=== PATIENT | female | born 1960 | race Caucasian/White ===

== ENCOUNTER 2017-09-21 11:36 | Outpatient (RCR) | payer BC ==
[2017-02-26 10:24] VITALS: BMI 41.3
[~2017-09-21 11:36] MED LIST: ALBU8.5H IH; AMOX-559 PO; ASPI-757 PO; BIOT1TAB12 PO; BUM2 PO; BUME1TAB19 PO; CEPH250C37 PO; CEPH500C24 PO; CEPH500T7 PO; CETI10CA8 PO; CHOL200074 PO; CLAR-13 PO; CLIN300C99 PO; CYCL10TA29 PO; DIAZ-308 PO; DICY-42 PO; DILT-145 PO; DULO30CA6 PO; DULO60CA7 PO; ESTR10TA4 VG; FLU45SYR25 IM ONLY; FLU60SYR30 IM ONLY; FLUC150T40 PO; FLUT16SP19 NS; FOLI-68 PO; HYDR-385 PO; HYDR-389 PO; HYDR-4305 PO; HYDR-4309 PO; IBUP800T37 PO; IPRA3AMP21 IH; LEVO-85 PO; METH20TA33 PO; METH20TA40 PO; METH25VI31 IJ; METH4TAB66 PO; MONT10TA PO; MUPI15CR10 TP; NABU-95 PO; OMEP-125 PO; OMEP-218 PO; ONDA4TAB PO; ONDA4TAB97 PO; OXYC-823 PO; OXYC-865 PO; OXYC-869 PO; PNEU0.5D3 IM; POTA-53 PO; RIVA20TA PO; ROPI0.5T24 PO; ROPI2TAB27 PO; ZOST19404 SQ; [UNRECOGNIZED DRUG - REMARK]; compression stocking; doxycycline
[2017-09-21 12:00] LABS: PLATELET COUNT, AUTOMATED 334 K/uL (150-450)
[2017-09-21 12:10] LABS: INR 1.02
[2017-09-21 12:52] LABS: LDL CHOLESTEROL 72 mg/dl
--- NOTE | 2017-09-23 08:16 | RADIOLOGY IMAGING REPORT ---
FACILITY: [facility] - [place] PATIENT NAME: SARAH AYALA : [id number] MR: [id number] V: [id number] EXAM DATE: [id number] ORDERING PHYSICIAN: OLMAN CARVER TECHNOLOGIST: Nara Guadarrama PROCEDURE:RIGHT DIGITAL DIAGNOSTIC MAMMOGRAM COMPARISON:None. INDICATIONS:CLIP PLACEMENT FINDINGS: Please see today's right breast ultrasound report. Dictated by: Jessica Rivero M.D. on 09/22/2017 at 16:42 Transcribed by: ANDRY on 09/22/2017 at 21:32 Approved by: Jessica Rivero M.D. on 09/23/2017 at 8:15 [facility]
--- NOTE | 2017-09-23 08:16 | RADIOLOGY IMAGING REPORT ---
FACILITY: [facility] - [place] PATIENT NAME: SARAH AYALA : [id number] MR: [id number] V: [id number] EXAM DATE: [id number] ORDERING PHYSICIAN: OLMAN CARVER TECHNOLOGIST: Kath Mora PROCEDURE: ULTRASOUND GUIDED RIGHT BREAST BIOPSY. COMPARISON: None. INDICATIONS: HYPOECHOIC NODULE IN THE RIGHT AXILLARY BREAST. FINDINGS: Informed consent was obtained. The patient's right axillary breast was prepped and draped in the usual sterile fashion. Local anesthesia was accomplished with 1% lidocaine. Utilizing sonographic guidance, three 16 gauge core biopsies were obtained through the hypoechoic nodule and the 10 o'clock axillary portion of the right breast. A biopsy clip was placed. The post-biopsy mammogram demonstrated the clip high in the axillary portion of the right breast on the right MLO view. This could not be seen on the right CC view. The clip did not correspond to the irregular nodule in the upper outer quadrant of the right breast seen on the recent mammogram, therefore, hook-wire localization under mammographic guidance with surgical excision is recommended for further evaluation. These findings were discussed with the patient at the time of the examination. DIAGNOSTIC CATEGORY 4--SUSPICIOUS FOR MALIGNANCY. Previous studies were reviewed. Procedure benefits and risks were discussed with the patient and consent RECOMMENDATIONS: SURGICAL BIOPSY COORDINATED WITH MAMMOGRAM HOOKWIRE LOCALIZATION: RIGHT BREAST. IMPRESSION: BI-RADS 4: Mammographically guided hook-wire localization of the irregular nodule upper outer portion of the right breast recommended with surgical excision as described above. Dictated by: Jessica Rivero M.D. on 09/22/2017 at 16:34 Transcribed by: ANDRY on 09/22/2017 at 21:11 Approved by: Jessica Rivero M.D. on 09/23/2017 at 8:15 [facility]
[2017-09-23] MEDS ORDERED: LEVO750T44 PO (11:00)
[2017-09-23] MEDS ORDERED: FLUC150T40 PO (11:00)
[2017-10-04] MEDS ORDERED: GOLYTE PO (15:51)
[2017-10-04] MEDS ORDERED: MELO-205 PO (16:06)
[2017-10-04] MEDS ORDERED: ASPI-757 PO (16:06)
== END 2017-09-22 18:00 | disposition home or self-care (01) ==
LOC: MAMO 11:36 → EDSTATUS 09-22 11:34 → MAMO 09-22 18:00
PROVIDERS: ATTEND Nurse Practitioner Family
DX: R92.8 Other abnormal and inconclusive findings on diagnostic imaging of breast (principal); Z79.899 Other long term (current) drug therapy
CPT/HCPCS: 19083; 36415; 77065; 82040; 82247; 82310; 82374; 82435; 82465; 82565; 82947; 83036; 83718; 84075; 84132; 84155; 84295; 84443; 84450; 84460; 84478; 84520; 85025; 85610; 85730; 88305; 88344

== ENCOUNTER 2017-11-03 00:20 | Day surgery (SDC) | payer BC ==
[2017-02-26 10:24] VITALS: Ht 168.9 cm; Wt 119.3 kg
[2017-11-02 10:59] LABS: PLATELET COUNT, AUTOMATED 347 K/uL (150-450)
--- NOTE | 2017-11-02 11:58 | EKG ---
FACILITY: [facility] - [place] PATIENT NAME: SARAH AYALA : [id number] MR: [id number] V: [id number] EXAM DATE: ORDERING PHYSICIAN: MAYO VELASQUEZ TECHNOLOGIST: Test Reason : Blood Pressure : / mmHG Vent. Rate : 069 BPM Atrial Rate : 069 BPM P-R Int : 136 ms QRS Dur : 074 ms QT Int : 422 ms P-R-T Axes : 054 057 060 degrees QTc Int : 452 ms Normal sinus rhythm Normal ECG When compared with ECG of 11-APR-2017 18:32, Sinus rhythm has replaced Atrial fibrillation Confirmed by MELL JUAREZ ([id number]) on 11/02/2017 12:33:34 PM Referred By: Confirmed By:MELL JUAREZ
[~2017-11-03] VITALS: Ht 168.9 cm; Wt 119.3 kg
[~2017-11-03 00:20] MED LIST changes: +GOLYTE PO; +LEVO750T44 PO; +MELO-205 PO
[2017-11-03] MEDS ORDERED: LIDOCAINE MPF 1% 5 ML VIAL ONE ×2 (08:51→11:57)
[2017-11-03 09:17] VITALS: BP 119/68
[2017-11-03] MEDS ORDERED: FAMOTIDINE 20 MG TAB PO ONE (09:20)
[2017-11-03] MEDS ORDERED: MIDAZOLAM 2 MG/2 ML VIAL IVP PRN (11:05)
[2017-11-03] MEDS ORDERED: LIDOCAINE/SOD BICARB 8.4% SYR ID ONE (11:05)
[2017-11-03] MEDS ORDERED: NS 0.9% IVPB ONE (11:05)
[2017-11-03] MEDS ORDERED: NORMOSOL R SOLN(*) 1000 ML BAG 1,000 ML IV PRN (11:05)
[2017-11-03] MEDS ORDERED: CEFAZOLIN IVPB ONE (11:05)
--- NOTE | 2017-11-03 11:50 | RADIOLOGY IMAGING REPORT ---
FACILITY: [facility] - [place] PATIENT NAME: Shania Padilla : 1960 MR: [id number] V: [id number] EXAM DATE: ORDERING PHYSICIAN: MAYO VELASQUEZ TECHNOLOGIST: Location: [facility] [place] Patient: Shania Padilla : 1960 Visit/Account:[id number] Date of Sevice: 11/03/2017 Ultrasound-guided wire localization, right breast nodule: HISTORY: Nodule in the right breast/axilla status post ultrasound-guided biopsy 09/22/2017. COMPARISON: 09/15/2017 and 09/22/2017 Procedure/findings: Risks and benefits of the procedure were discussed with the patient who signed co nsent. Formal timeout was performed. Patient was placed supine on the ultrasound table and skin over the [facility] axillary region was prepped and draped in a sterile fashion. Skin and soft tissues anesthetized with 1% lidocaine. Small nodule in the right axilla at 10:00 is visualized sonographically. Biopsy clip is seen just superficial to the nodule. Under direct ultrasound guidance, a 9 cm hookwire needl e was advanced through the superficial portion of the lesion adjacent to the biopsy clip. Wire was d eployed. Final sonographic image demonstrates the hookwire adjacent to the clip just superficial to the nodule. No apparent complications occurred during the procedure. Final mammographic image was not obtained. At the time of the biopsy, the mammographic clip could on ly be seen in a single plane due to the location high in the axilla so no attempt was made to image i s with mammogram. IMPRESSION: Ultrasound-guided wire localization of a nodule at the 10:00 position of the right breast near the axilla. Report Dictated By: Amy Fernandez MD at 11/03/2017 11:39 AM Report E-Signed By: Amy Fernandez MD at 11/03/2017 11:45 AM WSN:ASH
[2017-11-03] MEDS ORDERED: MIDAZOLAM 2 MG/2 ML VIAL ONE (11:56)
[2017-11-03] MEDS ORDERED: ONDANSETRON 4 MG/2 ML VIAL ONE (11:57)
[2017-11-03] MEDS ORDERED: DEXAMETHASONE SOD PHOS 10MG/ML ONE (11:57)
[2017-11-03] MEDS ORDERED: PROPOFOL EMUL(*) 10MG/ML 20 ML 20 ML ONE (11:57)
[2017-11-03] MEDS ORDERED: fentaNYL CITR 100 MCG/2 ML AMP ONE ×2 (11:57→15:03)
[2017-11-03] MEDS ORDERED: ROPIVACAINE 0.5% 20 ML VIAL ONE (12:37)
[2017-11-03] MEDS ORDERED: ROCURONIUM BROM 10 MG/ML 5 ML ONE (13:30)
--- NOTE | 2017-11-03 14:52 | Short(Outpt) Discharge Summary ---
Discharge Summary Reason for Hosp/Final Diag: (1) History of colon polyps Status: Chronic Hospital Course & Plan: Colonoscopy and right breast lump excision and right axillary lump excision completed without problems. (2) Fecal incontinence alternating with constipation Status: Chronic (3) Breast lesion on mammography Status: Chronic Departure Discharge to: Home, Self Care Discharge Instructions Home Meds Active Scripts Hydrocodone Bit/Acetaminophen (HYDROCODON-ACETAMINOPHEN 5-325) 1 Each Tablet, 1 TAB PO TID Y for pain, #90 TAB 0 Refills Prov:OLMAN CARVER APRN [employer] TENDER-C 10/27/17 Peg/Electrolytes (GOLYTELY SOLUTION) 4,000 Ml Soln, 1 GAL PO ONCE, #1 GAL 0 Refills Prov:RAYMOND VELASQUEZ MD 10/04/17 Duloxetine HCl (Duloxetine HCl) 60 Mg Capsule.dr, 1 CAP PO DAILY, #90 TAB 1 Refill Prov:OLMAN CARVER APRN [employer] TENDER-C 05/26/17 Ropinirole Hcl (REQUIP) 2 Mg Tablet, 1 TAB PO BID, #180 TAB 5 Refills Prov:OLMAN CARVER APRN [employer] TENDER-C 04/12/17 Reported Medications Aspirin (ASPIRIN) 325 Mg Tablet, 325 MG PO QDAY, TAB 10/04/17 Meloxicam (MELOXICAM) Unknown Strength Tablet, PO QDAY 10/04/17 Biotin (BIOTIN) 1 Mg Tablet, 1 MG PO DAILY 08/23/17 Folic Acid (FOLIC ACID) 1 Mg Tablet, 1 TAB PO QDAY, TAB 08/23/17 Ondansetron Hcl (ZOFRAN) 4 Mg Tablet, 1 TAB PO DIRECTED, TAB 08/23/17 Methotrexate Sodium (METHOTREXATE) 25 Mg/1 Ml Vial, 25 MG IJ QWEEK, VIAL 08/23/17 Omeprazole Magnesium (PRILOSEC OTC) 20 Mg Tablet.dr, 1 TAB PO QDAY Y for INDIGESTION, TAB 02/08/17 Cetirizine Hcl (ZYRTEC) 10 Mg Capsule, 10 MG PO QDAY Y for CONGESTION, CAPSULE 02/08/17 Dicyclomine Hcl (BENTYL) 10 Mg Capsule, 20 MG PO TID Y for IBS, CAPSULE 02/08/17 Cholecalciferol (Vitamin D3) (VITAMIN D-3) 2,000 Unit Capsule, 4000 UNIT PO QDAY , #100 CAPSULE 12/09/16 Follow up Referrals: General Surgery - 11/21/17 @ Surgery, General with Raymond Velasquez Md You have a follow up appointment scheduled with Dr. Velasquez on 11/21/17, at 3:30pm. Diet: Regular Activity: As Tolerated Special Instructions: You may remove the white surgical dressings on 11/05/17, then you can shower. After showering, leave the incisions open to air but leave the steristrips in place until they fall off on their own. Do not immerse the incisions for 2 weeks. Also, your colonoscopy was completed without problems and your prep was excellent. There were no polyps, cancers, inflammation in your colon; it was completely normal. RAYMOND VELASQUEZ MD Nov 03, 2017 14:52
--- NOTE | 2017-11-03 15:05 | Post Operative Progress Note ---
Post Operative Progress Note Date: Nov 03, 2017 Time: 14:53 Surgeon: Kobi Dictation number: [id number] Anesthesia: LMA by Dr. Schneider Pre-Op Diagnosis: H/O colon polyps Fecal incontinence Right breast lesions on mammogram and ultrasound Post-Op Diagnosis: JOSUÉ Findings: Normal colonoscopy, excellent prep Procedure(s): 1) colonoscopy 2) Right axillary wire-guided lesion excision 3) Right breast wire-guided lesion excision Specimen Removed:(May be N/A): 1) Right axillary lesion 2) Right breast lesion Complications: None Fluids: See anesthesia record Estimated Blood Loss: Minimal Date OP Note Dictated: Nov 03, 2017 Time OP Note Dictated: 14:55 MAYO VELASQUEZ MD Nov 03, 2017 15:04
--- NOTE | 2017-11-03 15:48 | RADIOLOGY IMAGING REPORT ---
[place] [facility] [place] SARAH AYALA : [id number] MR: [id number] V: [id number] EXAM DATE: [id number] ORDERING PHYSICIAN: MAYO VELASQUEZ TECHNOLOGIST: Alina Cunha PROCEDURE: NEEDLE LOCALIZATION RIGHT BREAST COMPARISON: 09/15/2017 INDICATIONS: Wire placement for surgery to remove lump right breast FINDINGS: Formal time out was performed. Risk & benefits of the procedure were discussed with the patient who signed consent. Lesion which was recommended for wire localization was not seen sonographically. This is seen in the upper outer quadrant of the right breast on mammogram. Initially, breast was compressed in an accentuated CC projection with the grid paddle. Lesion is seen within the aperture of the grid paddle. Skin was prepped & draped in a sterile fashion. Skin & soft tissue was anesthetized with 1% Lidocaine. A 9cm hookwire needle was advanced to the edge of the lesion, position based on the grid markings. Breast was then compressed in a medial to lateral projection, this demonstrates the tip of the needle within the lesion. Hookwire was deployed. Final mammographic images were obtained in the ML & accentuated CC projections, hookwire is seen posterior to the lesion. Of note, on the final images the lesion appears significantly smaller suggesting part of this may have been cystic with disruption of the cystic portion during wire localization. Wire was secured to the skin. No apparent complications occurred during the procedure. . CONCLUSION: Mammographic guided wire localization of a lesion in the upper outer quadrant of the right breast. Dictated by: Amy Fernandez M.D. on 11/03/2017 at 11:56 Transcribed by: RUPERT on 11/03/2017 at 15:21 Approved by: Amy Fernandez M.D. on 11/03/2017 at 15:48 [facility]
--- NOTE | 2017-11-03 15:51 | RADIOLOGY IMAGING REPORT ---
FACILITY: [facility] - [place] PATIENT NAME: SARAH AYALA : [id number] MR: [id number] V: [id number] EXAM DATE: [id number] ORDERING PHYSICIAN: MAYO VELASQUEZ TECHNOLOGIST: Alina Cunha PROCEDURE: BREAST SPECIMEN COMPARISON: 09/15/2017, 09/22/2017, 11/03/2017 INDICATIONS: L. breast lump excision x 2 FINDINGS: Specimen radiograph was obtained of the specimen which had been localized sonographically. The specimen contains the hookwire, biopsy clip which was placed at the time of prior biopsy as well as the small nodule. The 2nd specimen which is the lesion which was localized mammographically contains the hookwire although there is no solid mass identified. Of note, at the time the wire was placed at least part of the lesion was thought to be cystic due to significant decrease in size at the time of wire placement. Radiographs were discussed with Dr Velasquez at the time they were obtained. CONCLUSION: Specimen radiographs from 2 separate wire localizations as described above. Dictated by: Amy Fernandez M.D. on 11/03/2017 at 15:11 Transcribed by: RUPERT on 11/03/2017 at 15:26 Approved by: Amy Fernandez M.D. on 11/03/2017 at 15:51 [facility]
[2017-11-03 15:55] VITALS: BP 141/95
[2017-11-03 16:15] VITALS: BP 157/106
[2017-11-03] MEDS ORDERED: APAP/HYDROCODONE 325/5 TAB PO ONE (16:25)
[2017-11-03 16:30] VITALS: BP 147/80
[2017-11-03 16:45] VITALS: BP 119/83
[2017-11-03 16:47] VITALS: BP 127/85
--- NOTE | 2017-11-03 20:34 | OPERATIVE REPORT 1 ---
EVENT DATE: November 03, 2017 SURGEON: Raymond Peace MD ANESTHESIOLOGIST: Pierce Schneider MD ANESTHESIA: LMA. PREOPERATIVE DIAGNOSES 1. History of colon polyps. 2. Fecal incontinence. 3. Right breast lesion on mammogram. 4. Right axillary lesion on ultrasound. POSTOPERATIVE DIAGNOSES 1. History of colon polyps. 2. Fecal incontinence. 3. Right breast lesion on mammogram. 4. Right axillary lesion on ultrasound. PROCEDURES PERFORMED 1. Colonoscopy. 2. Wire-guided excision of right axillary lesion. 3. Wire-guided excision of right breast lesion. COMPLICATIONS None. CONDITION Stable. BLOOD LOSS Minimal. INDICATIONS This is a 57-year-old female who was referred to my office with two lesions seen on mammogram and ultrasound in her right breast and axilla. Biopsy of the axillary lesion only revealed skeletal muscle, but no breast elements. The breast lesion was felt not to be able to do percutaneous biopsy due to its proximity to the chest wall. She was referred to me for excision of these to determine their significance, and she was also due for a colonoscopy due to her history of polyps, and she was also complaining of alternating constipation and diarrhea. When she has diarrhea, she has a hard time holding her stool. DESCRIPTION OF PROCEDURE The patient was brought to the operating room and placed supine on the operating table. LMA anesthesia was administered, and she was placed in the frogleg position. The colonoscope was set up and tested to ensure it was completely functional. It was lubricated and inserted it through her anus to the rectum. I did perform a digital rectal exam just prior to inserting the colonoscope, and this was unremarkable. Once the colonoscope was in the rectum , I advanced it without any problems all the way to the cecum and then slowly withdrew the scope to look at all mucosal surfaces for any abnormalities. When the tip was in the rectum, I retroflexed the scope to look at the distal rectum and upper anal canal, and these were unremarkable. I then straightened the scope out and desufflated the distal sigmoid and rectum and withdrew the scope from her body. The prep was excellent, and the colonoscopy was normal. No polyps, cancers, inflammation, or other abnormalities. She was then placed in a full supine position, and her right breast and axilla were prepped and draped in a sterile fashion. She had had wires placed preoperatively in both lesions. I started with the right axillary lesion and made a transverse incision in the right axilla just posterior to the pectoralis muscle and dissected down through the subcutaneous fat into the axillary contents. I did go quite deep posterior to the pectoralis muscle, but after I got around the wire, I removed the specimen. It was placed on a grid and sent to Radiology. I then began working on the right breast lesion while I was awaiting the results of the axillary lesion, but while I was working on the right breast lesion, the radiologist called and notified me that the nodule seen on ultrasound was in the specimen, and it looked like a good resection. After anesthetizing the skin on the right breast with 0.5% ropivacaine plain, I made a transverse incision and dissected through the dermis and subcutaneous fat. I pulled the wire into the wound and then dissected along the wire down to the tip of the wire. I dissected completely around it and then removed it. I placed it on a grid and sent it to Radiology. She called back and notified me that she did not clearly see the lesion. However, preoperatively, she noted that it seemed to be at least partially cystic because it decompressed when she was placing the wire, and I noted the same thing with serous fluid down in this area. I did remove some more tissue around where the wire had been and sent this to Pathology as a separate specimen. I then closed the subcutaneous pockets of both wounds with a running 3-0 Vicryl sutures, and the skin was closed with running Vicryl deep dermal sutures and 4-0 Monocryl running subcuticular sutures. The skin was cleaned and dried, and Steri-Strips were applied, followed by sterile surgical dressings. The patient was then awakened and LMA removed. She was transported to the recovery room in stable condition having tolerated the procedures without any apparent problems. PATRICIO
== END 2017-11-03 15:55 | disposition home or self-care (01) ==
LOC: OR 00:20
PROVIDERS: ATTEND Surgery
DX: R22.2 Localized swelling, mass and lump, trunk (principal); N64.9 Disorder of breast, unspecified; R15.9 Full incontinence of feces; Z86.010 Personal history of colon polyps; N60.31 Fibrosclerosis of right breast
CPT/HCPCS: 00811; 19125; 19283; 19285; 21556; 36415; 45378; 85025; 88305; 88344; 93005; J0690; J1100; J2001; J2250; J2405; J2704; J2795; J3010; J7050

== ENCOUNTER 2017-11-05 18:28 | Emergency (ER) | payer BC ==
[2017-02-26 10:24] VITALS: Ht 168.9 cm; Wt 119.3 kg
[~2017-11-05] VITALS: Ht 168.9 cm; Wt 119.3 kg
--- NOTE | 2017-11-05 18:40 | ER Report ---
History and Physical Time Seen By : 18:39 HPI/ROS CHIEF COMPLAINT: nausea and post-op pain in the axillae HISTORY OF PRESENT ILLNESS: This is a 57 year old female. She had breast biopsies for 2 lesions in the right breast and axillae. This was 2 days ago. Having bruising and pain. Also with nausea. The steri-strips came off after she showered tonight. Had a little bright red blood on some of the steri-strips. No other drainage of the wounds. No fevers or chills. Pain worsens with movement of the right arm, but as expected. Does not see Dr. Velasquez until next month. Pathology pending. Also had colonoscopy, but no pain or problems with bowels or abdomen. Allergies: Coded Allergies: Sulfa (Sulfonamide Antibiotics) (Unverified Allergy, Unknown, RASH, ) oxycodone (Verified Adverse Reaction, Intermediate, NAUSEA/VOMITING, ) propofol (Verified Adverse Reaction, Intermediate, PARANOIA, AGITATED, 07/13) Uncoded Allergies: HAYFEVER (Allergy, Intermediate, SINUS CONGESTION, 02/08/17) Home Meds Active Scripts Ondansetron (ZOFRAN ODT) 4 Mg Tab.rapdis, 4 MG PO Q6H Y for NAUSEA/VOMITING, # 20 TAB.CATALINO 0 Refills Prov:SUSAN ADAMS MD 11/05/17 Hydrocodone Bit/Acetaminophen (HYDROCODON-ACETAMINOPHEN 5-325) 1 Each Tablet, 1 TAB PO TID Y for pain, #90 TAB 0 Refills Prov:OLMAN CARVER APRN-C 10/27/17 Duloxetine HCl (Duloxetine HCl) 60 Mg Capsule., 1 CAP PO DAILY, #90 TAB 1 Refill Prov:OLMAN CARVER APRN-C 05/26/17 Ropinirole Hcl (REQUIP) 2 Mg Tablet, 1 TAB PO BID, #180 TAB 5 Refills Prov:OLMAN CARVER APRN-Reg 04/12/17 Reported Medications Aspirin (ASPIRIN) 325 Mg Tablet, 325 MG PO QDAY, TAB 10/04/17 Meloxicam (MELOXICAM) Unknown Strength Tablet, PO QDAY 10/04/17 Biotin (BIOTIN) 1 Mg Tablet, 1 MG PO DAILY 08/23/17 Folic Acid (FOLIC ACID) 1 Mg Tablet, 1 TAB PO QDAY, TAB 08/23/17 Ondansetron Hcl (ZOFRAN) 4 Mg Tablet, 1 TAB PO DIRECTED, TAB 08/23/17 Methotrexate Sodium (METHOTREXATE) 25 Mg/1 Ml Vial, 25 MG IJ QWEEK, VIAL 08/23/17 Omeprazole Magnesium (PRILOSEC OTC) 20 Mg Tablet.dr, 1 TAB PO QDAY Y for INDIGESTION, TAB 02/08/17 Cetirizine Hcl (ZYRTEC) 10 Mg Capsule, 10 MG PO QDAY Y for CONGESTION, CAPSULE 02/08/17 Dicyclomine Hcl (BENTYL) 10 Mg Capsule, 20 MG PO TID Y for IBS, CAPSULE 02/08/17 Cholecalciferol (Vitamin D3) (VITAMIN D-3) 2,000 Unit Capsule, 4000 UNIT PO QDAY , #100 CAPSULE 12/09/16 Discontinued Scripts Peg/Electrolytes (GOLYTELY SOLUTION) 4,000 Ml Soln, 1 GAL PO ONCE, #1 GAL 0 Refills Prov:MAYO VELASQUEZ MD 10/04/17 Reviewed Nurses Notes: Yes Hx Smoking: No Smoking Status: Never Smoker Exposure to Second Hand Smoke?: No (WAS EXPOSED IN THE PAST. NONE FOR 20 YEARS) Hx Substance Use Disorder: No Hx Alcohol Use: Yes Constitutional Vital Sign - Last 24 Hours 11/05/17 11/05/17 11/05/17 11/05/17 18:36 18:38 18:39 18:43 Temp 98.6 Pulse 75 75 73 Resp 18 B/P (MAP) 146/88 (107) 146/88 Pulse Ox 94 96 95 O2 Delivery Room Air 11/05/17 11/05/17 11/05/17 11/05/17 18:48 18:53 18:58 19:00 Pulse 74 65 67 B/P (MAP) 143/70 (94) Pulse Ox 94 98 95 11/05/17 11/05/17 11/05/17 11/05/17 19:03 19:08 19:13 19:18 Pulse 68 72 ??? 71 Pulse Ox 94 94 92 11/05/17 11/05/17 11/05/17 11/05/17 19:23 19:28 19:33 19:35 Pulse 70 76 76 B/P (MAP) 155/84 (107) Pulse Ox 91 92 92 11/05/17 11/05/17 11/05/17 11/05/17 19:38 19:43 19:53 19:58 Pulse 73 74 75 74 Pulse Ox 93 90 92 90 11/05/17 11/05/17 11/05/17 11/05/17 20:00 20:03 20:08 20:17 Pulse 73 71 B/P (MAP) 145/85 (105) 160/94 (116) Pulse Ox 97 99 11/05/17 20:22 Pulse 85 Resp 16 B/P (MAP) 164/88 (113) Pulse Ox 92 O2 Delivery Room Air Physical Exam General: Alert, no acute distress. Skin: Surgical incisions closed and no drainage present. Tender as expected with palpation and movement of the right arm. No mass or fluctuance noted. Bruising tracking down the breast dependently, but no sign of hematoma. No redness or warmth. Musculoskeletal: Movement intact, but with pain. Medical Decision Making Data Points Result Diagram: 11/05/171914 Laboratory Hematology Test 11/05/17 19:15 Red Blood Count 3.93 M/uL (4.17-5.56) Mean Corpuscular Volume 88.5 fL (80.0-96.0) Mean Corpuscular Hemoglobin 29.9 pg (26.0-33.0) Mean Corpuscular Hemoglobin Concent 33.8 g/dL (32.0-36.0) Red Cell Distribution Width 14.2 % (11.5-14.5) Mean Platelet Volume 8.2 fL (7.2-11.1) Neutrophils (%) (Auto) 62.5 % (39.4-72.5) Lymphocytes (%) (Auto) 24.8 % (17.6-49.6) Monocytes (%) (Auto) 7.5 % (4.1-12.4) Eosinophils (%) (Auto) 4.4 % (0.4-6.7) Basophils (%) (Auto) 0.8 % (0.3-1.4) Nucleated RBC Relative Count (auto) 0.0 /100WBC Neutrophils # (Auto) 4.6 K/uL (2.0-7.4) Lymphocytes # (Auto) 1.8 K/uL (1.3-3.6) Monocytes # (Auto) 0.5 K/uL (0.3-1.0) Eosinophils # (Auto) 0.3 K/uL (0.0-0.5) Basophils # (Auto) 0.1 K/uL (0.0-0.1) Nucleated RBC Absolute Count (auto) 0.00 K/uL Prothrombin Time 13.2 seconds (12.0-14.4) Prothromb Time International Ratio 1.00 Activated Partial Thromboplast Time 29 seconds (23-35) Chemistry Test 11/05/17 19:15 White Blood Count 7.4 k/uL (4.5-11.0) Red Blood Count 3.93 M/uL (4.17-5.56) Hemoglobin 11.7 g/dL (12.0-16.0) Hematocrit 34.8 % (34.0-47.0) Mean Corpuscular Volume 88.5 fL (80.0-96.0) Mean Corpuscular Hemoglobin 29.9 pg (26.0-33.0) Mean Corpuscular Hemoglobin Concent 33.8 g/dL (32.0-36.0) Red Cell Distribution Width 14.2 % (11.5-14.5) Platelet Count 280 K/uL (150-450) Mean Platelet Volume 8.2 fL (7.2-11.1) Neutrophils (%) (Auto) 62.5 % (39.4-72.5) Lymphocytes (%) (Auto) 24.8 % (17.6-49.6) Monocytes (%) (Auto) 7.5 % (4.1-12.4) Eosinophils (%) (Auto) 4.4 % (0.4-6.7) Basophils (%) (Auto) 0.8 % (0.3-1.4) Nucleated RBC Relative Count (auto) 0.0 /100WBC Neutrophils # (Auto) 4.6 K/uL (2.0-7.4) Lymphocytes # (Auto) 1.8 K/uL (1.3-3.6) Monocytes # (Auto) 0.5 K/uL (0.3-1.0) Eosinophils # (Auto) 0.3 K/uL (0.0-0.5) Basophils # (Auto) 0.1 K/uL (0.0-0.1) Nucleated RBC Absolute Count (auto) 0.00 K/uL Prothrombin Time 13.2 seconds (12.0-14.4) Prothromb Time International Ratio 1.00 Activated Partial Thromboplast Time 29 seconds (23-35) Coagulation Test 11/05/17 19:15 Prothrombin Time 13.2 seconds Prothromb Time International Ratio 1.00 Activated Partial Thromboplast Time 29 seconds ED Course/Re-evaluation ED Course Bedside ultrasound was done and is negative for any fluid collections on brief bedside look by myself. PT, PTT, and CBC obtained, no abnormalities noted. Patient will follow-up with Dr. Velasquez this week for re-evaluation. Did provide a prescription for Zofran as needed. Decision to Disposition Date: Nov 05, 2017 Decision to Disposition Time: 20:10 Depart Departure Latest Vital Signs Vital Signs Date Time Temp Pulse Resp B/P (MAP) Pulse Ox O2 Delivery O2 Flow Rate FiO2 11/05/17 20:22 85 16 164/88 (113) 92 Room Air 11/05/17 18:39 98.6 Impression: Primary Impression: Postoperative ecchymosis Additional Impression: Nausea Condition: Improved Disposition: HOME OR SELF-CARE Referrals: OLMAN CARVER APRN [facility]TER-[facility] (PCP) New Scripts Ondansetron (ZOFRAN ODT) 4 Mg Tab.rapdis 4 MG PO Q6H Y for NAUSEA/VOMITING, #20 TAB.CATALINO 0 Refills Prov: SUSAN ADAMS MD 11/05/17 Patient Instructions: Acute Nausea and Vomiting (ED), Ecchymosis (ED) Additional Instructions: Follow-up with Dr. Velasquez this week for re-evaluation. No changes in medications. Prescription for Zofran provided. Problem Qualifiers SUSAN ADAMS MD Nov 05, 2017 18:40
[2017-11-05] MEDS ORDERED: ONDANSETRON 4 MG ODT TABDP SL ONE (19:05)
[2017-11-05 19:23] LABS: PLATELET COUNT, AUTOMATED 280 K/uL (150-450)
[2017-11-05] MEDS ORDERED: ONDA4TAB PO (20:12)
[2017-11-05 20:22] VITALS: BP 164/88
== END 2017-11-05 20:22 | disposition home or self-care (01) ==
LOC: ER 18:38
DX: L76.22 Postprocedural hemorrhage of skin and subcutaneous tissue following other procedure (principal); R11.0 Nausea
CPT/HCPCS: 36415; 85025; 85610; 85730; 99283; S0119

== ENCOUNTER 2018-01-09 17:50 | Emergency (ER) | payer BC ==
[2017-02-26 10:24] VITALS: Wt 119.3 kg
[~2018-01-09 17:50] MED LIST changes: +FLUC100T35 PO
[2018-01-09] MEDS ORDERED: METH2.5T43 PO (17:59)
--- NOTE | 2018-01-09 17:59 | ER Report ---
History and Physical Time Seen By MD: 17:58 Hx. of Stated Complaint: PT DROPPED CEDAR PLANKS ON R FOOT, PAIN AND BRUISING OVER TOES HPI/ROS 57-year-old female states that she was moving 80 pound boards around and they fell and dropped on her 4th and 5th toe on her right foot and had pain and swelling since this happened about an hour prior to arrival Allergies: Coded Allergies: Sulfa (Sulfonamide Antibiotics) (Unverified Allergy, Unknown, RASH, ) oxycodone (Verified Adverse Reaction, Intermediate, NAUSEA/VOMITING, ) propofol (Verified Adverse Reaction, Intermediate, PARANOIA, AGITATED, 07/13) Uncoded Allergies: HAYFEVER (Allergy, Intermediate, SINUS CONGESTION, 02/08/17) Home Meds Active Scripts Hydrocodone Bit/Acetaminophen (HYDROCODON-ACETAMINOPHEN 5-325) 1 Each Tablet, 1 TAB PO TID Y for pain, #90 TAB 0 Refills Prov:OLMAN CARVER APRN-C 01/04/18 Duloxetine HCl (Duloxetine HCl) 60 Mg Capsule.dr, 1 CAP PO DAILY, #90 TAB 0 Refills Prov:OLMAN CARVER APRN-C 11/24/17 Ropinirole Hcl (REQUIP) 2 Mg Tablet, 1 TAB PO BID, #180 TAB 5 Refills Prov:OLMAN CARVER APRNP-C 04/12/17 Reported Medications Methotrexate Sodium (METHOTREXATE) 2.5 Mg Tablet, 2.5 MG PO Q12H 01/09/18 Meloxicam (MELOXICAM) Unknown Strength Tablet, PO QDAY 10/04/17 Biotin (BIOTIN) 1 Mg Tablet, 1 MG PO DAILY 08/23/17 Folic Acid (FOLIC ACID) 1 Mg Tablet, 1 TAB PO QDAY, TAB 08/23/17 Cetirizine Hcl (ZYRTEC) 10 Mg Capsule, 10 MG PO QDAY Y for CONGESTION, CAPSULE 02/08/17 Cholecalciferol (Vitamin D3) (VITAMIN D-3) 2,000 Unit Capsule, 4000 UNIT PO QDAY , #100 CAPSULE 12/09/16 Discontinued Reported Medications Aspirin (ASPIRIN) 325 Mg Tablet, 325 MG PO QDAY, TAB 10/04/17 Discontinued Scripts Fluconazole (DIFLUCAN) 100 Mg Tablet, 100 MG PO QDAY for 1 Day, #1 TAB Prov:GRAYSON HOLGUIN JR, MD 12/21/17 Amoxicillin/Pot Clav 875-125 Mg Tab (AUGMENTIN 875-125 TABLET) 1 Each Tablet, 1 TAB PO Q12H for 14 Days, #28 TAB Prov:GRAYSON HOLGUIN JR, MD 12/21/17 Past Medical/Surgical History Rheumatoid arthritis is on scheduled [place] for this Hx Smoking: No Smoking Status: Never Smoker Exposure to Second Hand Smoke?: No (WAS EXPOSED IN THE PAST. NONE FOR 20 YEARS) Hx Substance Use Disorder: No Hx Alcohol Use: Yes Family History of: Other Constitutional Vital Sign - Last 24 Hours 01/09/18 01/09/18 01/09/18 01/09/18 17:54 18:00 18:05 18:20 Temp 98.3 Pulse 75 77 81 Resp 18 B/P (MAP) 126/105 116/88 (97) Pulse Ox 95 94 93 O2 Delivery Room Air 01/09/18 01/09/18 18:30 18:35 Pulse 80 B/P (MAP) 135/83 (100) Pulse Ox 94 Physical Exam General Appearance: [The patient is alert, has no immediate need for airway protection and no current signs of toxicity.] [ ] Respiratory: Chest is non tender, lungs are clear to auscultation. Cardiac: regular rate and rhythm [ ] Gastrointestinal: Abdomen is soft and non tender, no masses, bowel sounds normal. Musculoskeletal: Neck: Neck is supple and non tender. HEENT swelling 4th 5th toe of right foot Skin: No rashes or lesions. [ ] DIFFERENTIAL DIAGNOSIS: After history and physical exam differential diagnosis was considered for [contusion versus fracture right foot ] Medical Decision Making EKG/Imaging Imaging FACILITY: [facility] [place] PATIENT NAME: Shania Padilla : 1960 MR: [id number] V: [id number] EXAM DATE: [id number] ORDERING PHYSICIAN: KENA GARCIA TECHNOLOGIST: Location: [facility] [place] Patient: Shania Padilla : 1960 Visit/Account:[id number] Date of Sevice: 01/09/2018 INDICATION: board dropped on toes. A board dropped on the toes. DATE: 01/09/2018 6:20 PM. TECHNIQUE: FOOT 3 VIEW RIGHT COMPARISON: None FINDINGS: Normal alignment. No fracture or dislocation. Small plantar calcaneal heel spur. IMPRESSION: Normal alignment without fracture or dislocation. Report Dictated By: Kaveh Mendez MD at 01/09/2018 6:20 PM Report E-Signed By: Kaveh Mendez MD at 01/09/2018 6:30 PM WSN:[id number] Course/Re-evaluation ED Course X-ray of right foot is negative did talk to patient she has hard sole shoes to wear at home she will elevate foot use ice up to 4 times a day and take her scheduled [place] for pain Re-evaluation Refuse pain medication the ER is ambulatory in the ER with instructions does have a contusion to her right but Decision to Disposition Date: Jan 09, 2018 Decision to Disposition Time: 18:02 Depart Departure Latest Vital Signs Vital Signs Date Time Temp Pulse Resp B/P (MAP) Pulse Ox O2 Delivery O2 Flow Rate FiO2 01/09/18 18:35 80 94 01/09/18 18:30 135/83 (100) 01/09/18 17:54 98.3 18 Room Air Impression: Primary Impression: Contusion of foot Condition: Improved Disposition: HOME OR SELF-CARE Referrals: OLMAN CARVER APRN [employer]-C (PCP) 5 Days Patient Instructions: Contusion in Adults (ED) Additional Instructions: Wear hard soled shoe Tylenol for pain elevate foot return for problems or concerns KENA GARCIA APRN-C Jan 09, 2018 17:59
[2018-01-09 18:30] VITALS: BP 135/83
--- NOTE | 2018-01-09 18:34 | RADIOLOGY IMAGING REPORT ---
FACILITY: [facility] PATIENT NAME: Shania Padilla : 1960 MR: [id number] V: [id number] EXAM DATE: ORDERING PHYSICIAN: KENA GARCIA TECHNOLOGIST: [facility] Patient: Shania Padilla : 1960 Visit/Account:[id number] Date of Sevice: 01/09/2018 INDICATION: board dropped on toes. A board dropped on the toes. DATE: 01/09/2018 6:20 PM. TECHNIQUE: FOOT 3 VIEW RIGHT COMPARISON: None FINDINGS: Normal alignment. No fracture or dislocation. Small plantar calcaneal heel spur. IMPRESSION: Normal alignment without fracture or dislocation. Report Dictated By: Kaveh Mendez MD at 01/09/2018 6:20 PM Report E-Signed By: Kaveh Mendez MD at 01/09/2018 6:30 PM WSN:[id number]
== END 2018-01-09 18:58 | disposition home or self-care (01) ==
LOC: ER 18:15
DX: S90.31XA Contusion of right foot, initial encounter (principal); W20.8XXA Other cause of strike by thrown, projected or falling object, initial encounter
CPT/HCPCS: 99281

== ENCOUNTER → 2018-01-12 | Outpatient (CLI) | payer BC ==
[2017-02-26 10:24] VITALS: BMI 41.3
[~2018-01-12] MED LIST changes: +METH2.5T43 PO
--- NOTE | 2018-01-12 13:07 | RADIOLOGY IMAGING REPORT ---
FACILITY: [facility] PATIENT NAME: Shania Padilla : 1960 MR: [id number] V: [id number] EXAM DATE: [id number] ORDERING PHYSICIAN: GRAYSON HOLGUIN TECHNOLOGIST: Location: [facility] Patient: Shania Padilla : 1960 Visit/Account:[id number] Date of Sevice: 01/12/2018 EXAMINATION: CT of the Paranasal Sinuses HISTORY: Chronic sinus symptoms, septal deviation TECHNIQUE: CT was performed through the paranasal sinuses without intravenous contrast administratio n. Coronal and sagittal reformatted images were generated. One of the following dose optimization techniques was utilized in the performance of this exam: autom ated exposure control; adjustment of the mA and/or kV according to patient size; or use of iterative reconstruction technique. Specific details can be referenced in the facility's radiology CT exam ope rational policy. COMPARISON: December 28, 2015 FINDINGS: Clear mastoid air cells, clear middle ear cavities. Patent infundibula. Inward bowing of the bilatera l medial maxillary sinus [place] as before. Minimal secretions in the left nasal cavity medial to the l eft medial maxillary sinus wall. Clear paranasal sinuses. No nasal cavity polyp. Unchanged rightward cartilaginous nasal septum deviation measuring approximately 4.4 mm. Unchanged le ftward mid nasal septum deviation measuring approximately 4 mm. No nasal cavity polyp. Normal temporomandibular joints. Diminutive left middle turbinate as before. Unchanged small left nasal septum spur. Cataract postsurgical change noted. The visible intracranial structures are normal. IMPRESSION: 1. Clear paranasal sinuses. 2. Unchanged nasal septum deviation, see comments above. 3. Unchanged chronic findings as described above. Report Dictated By: Michel Singh MD at 01/12/2018 12:38 PM Report E-Signed By: Michel Singh MD at 01/12/2018 1:02 PM WSN:[id number]
== END ==
LOC: CT 01:20
PROVIDERS: ATTEND Otolaryngology
DX: J32.9 Chronic sinusitis, unspecified (principal); J34.2 Deviated nasal septum
CPT/HCPCS: 70486

== ENCOUNTER → 2018-01-18 | Outpatient (CLI) | payer BC ==
[2017-02-26 10:24] VITALS: BMI 41.3
[2018-01-18 14:13] LABS: PLATELET COUNT, AUTOMATED 326 K/uL (150-450)
== END ==
LOC: LAB 13:57
PROVIDERS: ATTEND Internal Medicine Rheumatology
DX: M05.79 Rheumatoid arthritis with rheumatoid factor of multiple sites without organ or systems involvement (principal); Z79.899 Other long term (current) drug therapy
CPT/HCPCS: 36415; 82565; 84450; 85025; 85651

== ENCOUNTER 2018-02-10 16:06 | Emergency (ER) | payer BC ==
[2017-02-26 10:24] VITALS: Wt 117.5 kg
[~2018-02-10 16:06] MED LIST changes: +LEUC5TAB PO
--- NOTE | 2018-02-10 16:29 | ER Report ---
History and Physical Time Seen By MD: 16:28 Hx. of Stated Complaint: PT REPORTS SOB AND FEELING SICK AND FATIGUED HPI/ROS CHIEF COMPLAINT: Left leg pain, swelling, not feeling well HISTORY OF PRESENT ILLNESS: 57-year-old female patient presents to emergency room with complaint of left leg pain, swelling and not feeling well. Patient states that she's been having knee pain for the last couple of days. She states that she is having hard time getting up and move around at all without leg. 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 She has also noticed some swelling in the back of her leg. She denies having any fevers or chills. She states she has been having some shortness of breath. She states that she has not taken any medication for this. She denies having any nausea, vomiting or diarrhea. Patient also denies having any chest pain. REVIEW OF SYSTEMS: Respiratory: As noted above Cardiovascular: No chest pain, no palpitations. Gastrointestinal: No vomiting, no abdominal pain. Musculoskeletal: As noted above Allergies: Coded Allergies: Sulfa (Sulfonamide Antibiotics) (Unverified Allergy, Unknown, RASH, ) oxycodone (Verified Adverse Reaction, Intermediate, NAUSEA/VOMITING, ) propofol (Verified Adverse Reaction, Intermediate, PARANOIA, AGITATED, ) Uncoded Allergies: HAYFEVER (Allergy, Intermediate, SINUS CONGESTION, 02/08/17) Home Meds Active Scripts Hydrocodone Bit/Acetaminophen (HYDROCODON-ACETAMINOPHEN 5-325) 1 Each Tablet, 1 TAB PO TID Y for pain, #90 TAB 0 Refills Prov:OLMAN CARVER APRN-C 01/04/18 Duloxetine HCl (Duloxetine HCl) 60 Mg Capsule.dr, 1 CAP PO DAILY, #90 TAB 0 Refills Prov:OLMAN CARVER APRNP-C 11/24/17 Ropinirole Hcl (REQUIP) 2 Mg Tablet, 1 TAB PO BID, #180 TAB 5 Refills Prov:OLMAN CARVER APRN [employer]-C 04/12/17 Reported Medications Ondansetron (ZOFRAN ODT) 4 Mg Tab.rapdis, 4 MG PO PRN, TAB.CATALINO 02/07/18 Ondansetron Hcl (ZOFRAN) 4 Mg Tablet, 4 MG PO QWEEK, TAB 02/07/18 Leucovorin Calcium (LEUCOVORIN CALCIUM) 5 Mg Tablet, 5 MG PO QWK 02/07/18 Methotrexate Sodium (METHOTREXATE) 2.5 Mg Tablet, 5 TAB PO WEEKLY BID 01/09/18 Meloxicam (MELOXICAM) Unknown Strength Tablet, 7.5 PO QAM 10/04/17 Biotin (BIOTIN) 1 Mg Tablet, 1 MG PO DAILY 08/23/17 Folic Acid (FOLIC ACID) 1 Mg Tablet, 1 TAB PO QDAY, TAB 08/23/17 Cetirizine Hcl (ZYRTEC) 10 Mg Capsule, 10 MG PO QDAY Y for CONGESTION, CAPSULE 02/08/17 Cholecalciferol (Vitamin D3) (VITAMIN D-3) 2,000 Unit Capsule, 4000 UNIT PO QDAY , #100 CAPSULE 12/09/16 Past Medical/Surgical History Patient has a past medical history of restless leg syndrome, migraines, A. fib, bronchitis, wheezing, pneumonia, IBS, reflux, fibromyalgia, rheumatoid arthritis , osteoarthritis, left ankle fracture, wrist fracture, back pain, alcohol use. Patient has surgical history of ablation, wrist surgery, knee surgery, back surgery, tonsillectomy, eye surgery, breast reduction surgery, lumpectomy. Reviewed Nurses Notes: Yes Hx Smoking: No Smoking Status: Never Smoker Exposure to Second Hand Smoke?: No (WAS EXPOSED IN THE PAST. NONE FOR 20 YEARS) Hx Substance Use Disorder: No Hx Alcohol Use: Yes Constitutional Vital Sign - Last 24 Hours 02/10/18 02/10/18 02/10/18 02/10/18 16:14 16:17 16:21 16:25 Temp 98.6 Pulse 75 78 Resp 18 B/P (MAP) 135/75 (95) 135/75 125/65 (85) Pulse Ox 93 93 O2 Delivery Room Air 02/10/18 02/10/18 02/10/18 02/10/18 16:30 16:36 16:45 16:51 Pulse 71 76 Resp 44 46 B/P (MAP) 123/78 (93) 117/66 (83) Pulse Ox 94 88 02/10/18 02/10/18 02/10/18 02/10/18 17:00 17:06 17:15 17:21 Pulse ??? 68 Resp 48 B/P (MAP) 123/65 (84) 127/65 (85) Pulse Ox 96 02/10/18 02/10/18 02/10/18 02/10/18 17:30 17:36 17:45 17:51 Pulse 60 56 Resp 17 B/P (MAP) 136/75 (95) 128/75 (92) Pulse Ox 98 96 02/10/18 18:00 B/P (MAP) 148/85 (106) Physical Exam General Appearance: The patient is alert, has no immediate need for airway protection and no current signs of toxicity. Respiratory: Chest is non tender, lungs are clear to auscultation. Cardiac: regular rate and rhythm Gastrointestinal: Abdomen is soft and non tender, no masses, bowel sounds normal. Musculoskeletal: Neck: Neck is supple and non tender. Extremities have full range of motion and are non tender. Patient does have some tenderness to the medial aspect of the left knee. Skin: No rashes or lesions. DIFFERENTIAL DIAGNOSIS: After history and physical exam differential diagnosis was considered for knee sprain, knee fracture, knee contusion, DVT, pneumonia, [place]. Medical Decision Making Data Points Result Diagram: 02/10/18 1658 02/10/18 1658 Laboratory Hematology Test 02/10/18 16:58 Red Blood Count 4.57 M/uL (4.17-5.56) Mean Corpuscular Volume 85.6 fL (80.0-96.0) Mean Corpuscular Hemoglobin 29.0 pg (26.0-33.0) Mean Corpuscular Hemoglobin Concent 33.9 g/dL (32.0-36.0) Red Cell Distribution Width 15.0 % (11.5-14.5) Mean Platelet Volume 8.4 fL (7.2-11.1) Neutrophils (%) (Auto) 62.5 % (39.4-72.5) Lymphocytes (%) (Auto) 24.7 % (17.6-49.6) Monocytes (%) (Auto) 9.0 % (4.1-12.4) Eosinophils (%) (Auto) 2.7 % (0.4-6.7) Basophils (%) (Auto) 1.1 % (0.3-1.4) Nucleated RBC Relative Count (auto) 0.1 /100WBC Neutrophils # (Auto) 4.6 K/uL (2.0-7.4) Lymphocytes # (Auto) 1.8 K/uL (1.3-3.6) Monocytes # (Auto) 0.7 K/uL (0.3-1.0) Eosinophils # (Auto) 0.2 K/uL (0.0-0.5) Basophils # (Auto) 0.1 K/uL (0.0-0.1) Nucleated RBC Absolute Count (auto) 0.01 K/uL Sodium Level 141 mmol/L (137-145) Potassium Level 3.9 mmol/L (3.5-5.0) Chloride Level 104 mmol/L (98-107) Carbon Dioxide Level 26 mmol/L (22-31) Blood Urea Nitrogen 21 mg/dl (7-18) Creatinine 1.00 mg/dl (0.52-1.04) Glomerular Filtration Rate Calc 57.4 Random Glucose 91 mg/dl (75-110) Calcium Level 9.2 mg/dl (8.4-10.2) Total Bilirubin 0.3 mg/dl (0.2-1.3) Aspartate Amino Transf (AST/SGOT) 23 U/L (0-35) Alanine Aminotransferase (ALT/SGPT) 31 U/L (0-56) Alkaline Phosphatase 103 U/L (0-126) Troponin I < 0.012 ng/ml B-Type Natriuretic Peptide 21 pg/ml (0-100) Total Protein 7.1 gm/dl (6.3-8.2) Albumin 3.9 g/dl (3.5-5.0) Chemistry Test 02/10/18 16:58 White Blood Count 7.4 k/uL (4.5-11.0) Red Blood Count 4.57 M/uL (4.17-5.56) Hemoglobin 13.3 g/dL (12.0-16.0) Hematocrit 39.1 % (34.0-47.0) Mean Corpuscular Volume 85.6 fL (80.0-96.0) Mean Corpuscular Hemoglobin 29.0 pg (26.0-33.0) Mean Corpuscular Hemoglobin Concent 33.9 g/dL (32.0-36.0) Red Cell Distribution Width 15.0 % (11.5-14.5) Platelet Count 291 K/uL (150-450) Mean Platelet Volume 8.4 fL (7.2-11.1) Neutrophils (%) (Auto) 62.5 % (39.4-72.5) Lymphocytes (%) (Auto) 24.7 % (17.6-49.6) Monocytes (%) (Auto) 9.0 % (4.1-12.4) Eosinophils (%) (Auto) 2.7 % (0.4-6.7) Basophils (%) (Auto) 1.1 % (0.3-1.4) Nucleated RBC Relative Count (auto) 0.1 /100WBC Neutrophils # (Auto) 4.6 K/uL (2.0-7.4) Lymphocytes # (Auto) 1.8 K/uL (1.3-3.6) Monocytes # (Auto) 0.7 K/uL (0.3-1.0) Eosinophils # (Auto) 0.2 K/uL (0.0-0.5) Basophils # (Auto) 0.1 K/uL (0.0-0.1) Nucleated RBC Absolute Count (auto) 0.01 K/uL Glomerular Filtration Rate Calc 57.4 Calcium Level 9.2 mg/dl (8.4-10.2) Total Bilirubin 0.3 mg/dl (0.2-1.3) Aspartate Amino Transf (AST/SGOT) 23 U/L (0-35) Alanine Aminotransferase (ALT/SGPT) 31 U/L (0-56) Alkaline Phosphatase 103 U/L (0-126) Troponin I < 0.012 ng/ml B-Type Natriuretic Peptide 21 pg/ml (0-100) Total Protein 7.1 gm/dl (6.3-8.2) Albumin 3.9 g/dl (3.5-5.0) EKG/Imaging EKG Interpretation 12 lead EKG: Rhythm: normal sinus rhythm with ventricular rate of 79 bpm [place]: normal QRS: normal ST segments: normal Imaging KNEE 4 VIEW LEFT Provided history: knee pain Additional pertinent history: none Four views obtained COMPARISON STUDIES: No relevant priors FINDINGS: Acute osseous and soft tissue findings: Small knee joint effusion of unclear chronicity. Chronic osseous and soft tissue findings: [place] view reveals mild hypertrophy of the lateral patella but no significant subluxation or tilting. On the fully extended AP view, the patella does demonstrate mild lateral subluxation. Lesions: None significant IMPRESSION: Mildly laterally positioned patella and hypertrophy of the lateral surface. Correlate for patellar retinacular syndrome. Small joint effusion. Report Dictated By: Aroldo Israel MD at 02/10/2018 5:30 PM Report E-Signed By: Aroldo Israel MD at 02/10/2018 5:41 PM VENOUS DOPP LOW LEFT EXTREMITY Provided history: Left knee swelling Additional pertinent history: none COMPARISON STUDIES: 02/27/17 FINDINGS: Left leg grayscale, duplex and color Doppler interrogation of the lower extremity deep venous system from common femoral vein to proximal calf was performed. The greater saphenous vein was evaluated using similar technique. Common femoral vein: negative Femoral vein: negative Deep femoral vein: negative Popliteal vein: negative Visualized deep calf veins: negative Popliteal fossa: Negative from the prior examination is a simple appearing cyst in the medial popliteal fossa measuring 4.7 x 1.8 x 2.4 cm. Greater saphenous vein in the proximal thigh: negative IMPRESSION: No evidence of acute DVT in the left lower extremity. Small nonruptured posteromedial popliteal cyst. Report Dictated By: Aroldo Israel MD at 02/10/2018 6:41 PM Report E-Signed By: Aroldo Israel MD at 02/10/2018 6:44 PM CHEST PA AND LAT Provided history: Respiratory distress Additional pertinent history: none Two views obtained COMPARISON STUDIES: 05/17/17 FINDINGS: Support lines and tubes: None. Lungs / pleura / thea: No infiltrate, effusion or pneumothorax. Heart / mediastinum /vessels: Negative Nodules / masses: None significant Bones / body wall: Negative Lower neck / Upper abdomen: Negative IMPRESSION: No acute or significant chronic cardiopulmonary disease. Report Dictated By: Aroldo Israel MD at 02/10/2018 5:29 PM Report E-Signed By: Aroldo Israel MD at 02/10/2018 5:30 PM ED Course/Re-evaluation ED Course Patient was admitted to exam room, history and physical were obtained. Differential diagnoses were considered. On examination patient has tenderness to the left knee, there is no bruising noted. Lungs sound clear, heart is regular. A CBC, CMP, troponin, EKG, chest x-ray, left knee x-ray, venous Doppler of the left lower extremity was done. The lab results were unremarkable , chest x-ray was negative, left knee x-ray showed a small effusion, lateral shift of the patella. Venous Doppler was negative. Discuss results with the patient. Patient does feel significantly relieved. We'll go ahead and have her limit her activity by pain, she is to use compression when she is active. I would like her to elevate and ice her knee when she is not active. She is return to emergency room if condition worsens. Patient verbalized understanding and agreement with plan. Decision to Disposition Date: February 10, 2018 Decision to Disposition Time: 19:02 Depart Departure Latest Vital Signs Vital Signs Date Time Temp Pulse Resp B/P (MAP) Pulse Ox O2 Delivery O2 Flow Rate FiO2 02/10/18 18:00 148/85 (106) 02/10/18 17:51 56 17 96 02/10/18 16:17 98.6 Room Air Impression: Primary Impression: Knee pain Condition: Improved Disposition: HOME OR SELF-CARE Referrals: OLMAN CARVER APRN-C (PCP) Patient Instructions: Knee Pain (ED) Additional Instructions: Limit activity by pain. Elevate foot when not active. Ice knee. Try wearing some compression when you are active to see if that helps with the discomfort. Return to the ER if condition worsens. Continue with normal medications. Problem Qualifiers Primary Impression: Knee pain Chronicity: acute Laterality: left Qualified Codes: M25.562 - Pain in left knee NADIRA SANCHEZ February 10, 2018 16:29
--- NOTE | 2018-02-10 16:39 | EKG ---
FACILITY: [facility] PATIENT NAME: SARAH AYALA : [id number] MR: [id number] V: [id number] EXAM DATE: ORDERING PHYSICIAN: NADIRA SANCHEZ TECHNOLOGIST: DEBORAH Newsome Reason : Blood Pressure : / mmHG Vent. Rate : 073 BPM Atrial Rate : 073 BPM P-R Int : 142 ms QRS Dur : 072 ms QT Int : 434 ms P-R-T Axes : 063 022 026 degrees QTc Int : 478 ms Normal sinus rhythm Normal ECG When compared with ECG of 02-NOV-2017 11:01, No significant change was found Confirmed by MARTINEZ SHELLEY ([id number]) on 02/10/2018 8:45:54 PM Referred By: LAURA Confirmed By:MARTINEZ SHELLEY
[2018-02-10 17:09] LABS: PLATELET COUNT, AUTOMATED 291 K/uL (150-450)
--- NOTE | 2018-02-10 17:34 | RADIOLOGY IMAGING REPORT ---
FACILITY: [facility] PATIENT NAME: Shania Padilla : 1960 MR: [id number] V: [id number] EXAM DATE: ORDERING PHYSICIAN: NADIRA SANCHEZ TECHNOLOGIST: Location: [facility] Patient: Shania Padilla : 1960 Visit/Account:[id number] Date of Sevice: 02/10/2018 CHEST PA AND LAT Provided history: Respiratory distress Additional pertinent history: none Two views obtained COMPARISON STUDIES: 05/17/17 FINDINGS: Support lines and tubes: None. Lungs / pleura / thea: No infiltrate, effusion or pneumothorax. Heart / mediastinum /vessels: Negative Nodules / masses: None significant Bones / body wall: Negative Lower neck / Upper abdomen: Negative IMPRESSION: No acute or significant chronic cardiopulmonary disease. Report Dictated By: Aroldo Israel MD at 02/10/2018 5:29 PM Report E-Signed By: Aroldo Israel MD at 02/10/2018 5:30 PM WSN:[id number]
--- NOTE | 2018-02-10 17:46 | RADIOLOGY IMAGING REPORT ---
FACILITY: [facility] [place] PATIENT NAME: Shania Padilla : 1960 MR: [id number] V: [id number] EXAM DATE: ORDERING PHYSICIAN: NADIRA SANCHEZ TECHNOLOGIST: Location: [facility] [place] Patient: Shania Padilla : 1960 Visit/Account:[id number] Date of Sevice: 02/10/2018 KNEE 4 VIEW LEFT Provided history: knee pain Additional pertinent history: none Four views obtained COMPARISON STUDIES: No relevant priors FINDINGS: Acute osseous and soft tissue findings: Small knee joint effusion of unclear chronicity. Chronic osseous and soft tissue findings: [place] view reveals mild hypertrophy of the lateral alberto la but no significant subluxation or tilting. On the fully extended AP view, the patella does demonst rate mild lateral subluxation. Lesions: None significant IMPRESSION: Mildly laterally positioned patella and hypertrophy of the lateral surface. Correlate for patellar re tinacular syndrome. Small joint effusion. Report Dictated By: Aroldo Israel MD at 02/10/2018 5:30 PM Report E-Signed By: Aroldo Israel MD at 02/10/2018 5:41 PM WSN:[id number]
--- NOTE | 2018-02-10 18:49 | RADIOLOGY IMAGING REPORT ---
FACILITY: [facility] [place] PATIENT NAME: Shania Padilla : 1960 MR: [id number] V: [id number] EXAM DATE: ORDERING PHYSICIAN: NADIRA SANCHEZ TECHNOLOGIST: Location: [facility] Patient: Shania Padilla : 1960 Visit/Account:[id number] Date of Sevice: 02/10/2018 VENOUS DOPP LOW LEFT EXTREMITY Provided history: Left knee swelling Additional pertinent history: none COMPARISON STUDIES: 02/27/17 FINDINGS: Left leg grayscale, duplex and color Doppler interrogation of the lower extremity deep venous system from common femoral vein to proximal calf was performed. The greater saphenous vein was evaluated usi ng similar technique. Common femoral vein: negative Femoral vein: negative Deep femoral vein: negative Popliteal vein: negative Visualized deep calf veins: negative Popliteal fossa: Negative from the prior examination is a simple appearing cyst in the medial popli teal fossa measuring 4.7 x 1.8 x 2.4 cm. Greater saphenous vein in the proximal thigh: negative IMPRESSION: No evidence of acute DVT in the left lower extremity. Small nonruptured posteromedial popliteal cyst. Report Dictated By: Aroldo Israel MD at 02/10/2018 6:41 PM Report E-Signed By: Aroldo Israel MD at 02/10/2018 6:44 PM WSN:[id number]
[2018-02-10 19:00] VITALS: BP 149/84
== END 2018-02-10 19:20 | disposition home or self-care (01) ==
LOC: ER 16:20
DX: M25.562 Pain in left knee (principal)
CPT/HCPCS: 71046; 73564; 82040; 82247; 82310; 82374; 82435; 82565; 82947; 83880; 84075; 84132; 84155; 84295; 84450; 84460; 84484; 84520; 85025; 93005; 99284

== ENCOUNTER 2018-02-13 02:55 | Day surgery (SDC) | payer BC ==
[2017-02-26 10:24] VITALS: Ht 167.6 cm; Wt 119.3 kg
[~2018-02-13] VITALS: Ht 167.6 cm; Wt 119.3 kg
[2018-02-13] MEDS ORDERED: fentaNYL CITR 100 MCG/2 ML AMP ONE ×4 (06:44→09:49)
[2018-02-13] MEDS ORDERED: ONDANSETRON 4 MG/2 ML VIAL ONE (06:45)
[2018-02-13] MEDS ORDERED: LIDOCAINE MPF 1% 5 ML VIAL ONE (06:45)
[2018-02-13] MEDS ORDERED: PROPOFOL EMUL(*) 10MG/ML 20 ML 20 ML ONE (06:45)
[2018-02-13] MEDS ORDERED: DEXAMETHASONE SOD PHOS 10MG/ML ONE (06:45)
[2018-02-13] MEDS: NORMOSOL R SOLN(*) 1000 ML BAG 1,000 ML IV PRN ×2 (07:59→09:40)
[2018-02-13 08:08] VITALS: BP 125/82
[2018-02-13] MEDS ORDERED: MIDAZOLAM 2 MG/2 ML VIAL IVP PRN (08:15)
[2018-02-13] MEDS ORDERED: FAMOTIDINE 20 MG TAB PO ONE (08:15)
[2018-02-13] MEDS ORDERED: ceFAZolin(*) 2GM/D5W 50ML 50 ML IVPB ONE (08:15)
[2018-02-13] MEDS ORDERED: LIDOCAINE/SOD BICARB 8.4% SYR ID ONE (08:15)
[2018-02-13] MEDS ORDERED: BACITRACIN OINT 15 GM TUBE TP ONE (08:18)
[2018-02-13] MEDS ORDERED: LIDO/EPI 1% MDV 1:100,000 20ML INFIL ONE (08:19)
[2018-02-13] MEDS ORDERED: OXYMETAZOLINE SPRAY 15 ML BTL ONE (08:19)
[2018-02-13] MEDS ORDERED: MUPIROCIN 2% OINT 22 GM TUBE TP ONE (08:19)
[2018-02-13] MEDS ORDERED: LIDOCAINE 2% JELLY 5 ML TUBE ONE (08:20)
[2018-02-13] MEDS ORDERED: HYDR-4309 PO ×2 (10:03→10:33)
[2018-02-13] MEDS ORDERED: CEFU500T10 PO ×2 (10:06→10:34)
[2018-02-13] MEDS ORDERED: APAP/HYDROCODONE 325/5 TAB ONE (10:16)
[2018-02-13 10:45] VITALS: BP 156/90
[2018-02-13 11:22] VITALS: BP 136/86
[2018-02-13 12:44] VITALS: BP 142/90
[2018-02-13 12:46] VITALS: BP 134/84
[2018-02-13] MEDS ORDERED: FLUC100T35 PO (13:54)
--- NOTE | 2018-02-14 03:49 | OPERATIVE REPORT 1 ---
EVENT DATE: February 13, 2018 SURGEON: Mark Schofield MD ANESTHESIOLOGIST: Alec Mitchell MD ANESTHESIA: General endotracheal. PROCEDURE 1. Septoplasty. 2. Submucosal resection of the bilateral inferior turbinates. PREOPERATIVE DIAGNOSES 1. Nasal septal deviation. 2. Bilateral inferior turbinate hypertrophy. POSTOPERATIVE DIAGNOSES 1. Nasal septal deviation. 2. Bilateral inferior turbinate hypertrophy. INDICATIONS Please refer to the preoperative note. DESCRIPTION OF PROCEDURE The patient was positively identified in the preoperative area. She was there alone. Risks were again explained, including but not limited to bleeding, infection, nasal septal perforation and those associated with anesthesia. She acknowledged understanding of those risks. She was then brought back to the operative suite, laid supine on the operative table and anesthesia was administered. Once asleep, the patient was positioned, then prepped and draped in usual sterile fashion. The nose was initially decongested by injecting approximately 10 mL of 1% lidocaine with epinephrine into the bilateral anterior nasal septal mucosa and along the face of the bilateral inferior turbinates. Both nasal cavities were subsequently packed with cottonoids containing Afrin solution. These were subsequently removed. A nasal endoscopy was performed. This was notable for severe left nasal septal deviation. A Mode incision was then made in the left anterior nasal septal mucosa. A subperichondrial flap was elevated. An incision was then made 5 mm posterior to the original Mode incision in the anterior nasal septal cartilage. A contralateral flap was raised. The deviated portion of the patient's nasal septal cartilage and bone was then removed. The [place] incision was then reapproximated with interrupted chromic stitch. I then addressed the inferior turbinates. A stab incision was made at the base of the left inferior turbinate. A caudal elevator was utilized to elevate the mucosa off the underlying bone. A submucosal resection was then performed with the turbinate blade of the microdebrider. The stab incision was then cauterized with suction Bovie electrocautery. Bilateral nasal septal splints were then placed and secured to the columella with a suture. The patient was then turned to Anesthesia for emergence. ESTIMATED BLOOD LOSS 25 mL. COMPLICATIONS No complications. MTDD
== END 2018-02-13 10:45 | disposition home or self-care (01) ==
LOC: OR 02:55
PROVIDERS: ATTEND Otolaryngology
DX: J34.2 Deviated nasal septum (principal); J34.3 Hypertrophy of nasal turbinates
CPT/HCPCS: 30140; 30520; J1100; J2001; J2250; J2405; J2704; J3010; J0690

== ENCOUNTER → 2018-04-11 | Outpatient (CLI) | payer BC ==
[2017-02-26 10:24] VITALS: BMI 41.3
[~2018-04-11] MED LIST changes: +CEFU500T10 PO; +IPRA3AMP10 IH; -IPRA3AMP21 IH
--- NOTE | 2018-04-11 15:03 | RADIOLOGY IMAGING REPORT ---
[place] [facility] [place] Shania Padilla : 1960 MR: [id number] V: [id number] EXAM DATE: ORDERING PHYSICIAN: JOSE MEANS TECHNOLOGIST: Location: [facility] - [place], [place] Patient: Shania Padilla : 1960 Visit/Account:[id number] Date of Sevice: 04/11/2018 VENOUS DOPP LOW LEFT EXTREMITY Indication: Left calf and left lower leg pain in patient who is status post surgery 4 weeks ago. Comparison: Ultrasound February 10, 2018. Procedure: There has been satisfactory grayscale as well as color flow and Doppler waveform analysis of the deep vessels of the left lower extremity. Findings: The common femoral, profunda femoral, superficial femoral, popliteal and infrapopliteal ves sels so far as visualized are compressible with grayscale imaging. All these vessels show flow with c olor Doppler imaging. Following calf compression there is normal directional augmentation of the Dopp ler waveform. During grayscale imaging incidental note is made of a 4.5 x 0.7 x 1.1 cm Rendon's cyst in the left pop liteal fossa. The proximal left greater saphenous vein is compressible with grayscale imaging and color flow analys is shows normal flow. The Doppler waveform shows normal direction of flow. The right common femoral vein on the other side has normal flow with respiratory variation identified . IMPRESSION: No findings of deep vein thrombosis in the left lower extremity. Report Dictated By: Adeel Bond MD at 04/11/2018 2:57 PM Report E-Signed By: Adeel Bond MD at 04/11/2018 2:59 PM WSN:[id number]
== END ==
LOC: US 13:47
PROVIDERS: ATTEND Orthopaedic Surgery
DX: M79.662 Pain in left lower leg (principal)

== ENCOUNTER → 2018-04-14 | Outpatient (CLI) | payer BC ==
[2017-02-26 10:24] VITALS: BMI 41.3
== END ==
LOC: LAB 16:47
PROVIDERS: ATTEND Nurse Practitioner Family
DX: R60.9 Edema, unspecified (principal)
CPT/HCPCS: 36415; 82040; 82247; 82310; 82374; 82435; 82565; 82947; 83880; 84075; 84132; 84155; 84295; 84450; 84460; 84520

== ENCOUNTER → 2018-04-18 | Outpatient (CLI) | payer BC ==
[2017-02-26 10:24] VITALS: BMI 41.3
[2018-04-18 08:37] LABS: PLATELET COUNT, AUTOMATED 332 K/uL (150-450)
--- NOTE | 2018-04-18 10:10 | RADIOLOGY IMAGING REPORT ---
FACILITY: [facility] PATIENT NAME: Shania Padilla : 1960 MR: [id number] V: [id number] EXAM DATE: ORDERING PHYSICIAN: OLMAN CARVER TECHNOLOGIST: Location: [facility] - [place] Patient: Shania Padilla : 1960 Visit/Account:[id number] Date of Sevice: 04/18/2018 LIVER HISTORY: elevated LFTs COMPARISON: None. FINDINGS: Gallbladder: Unremarkable; no stones or sludge. Liver: Mild hepatomegaly with increased echogenicity throughout liver which can be seen with fatty in filtration or other infiltrative process Common duct: Normal, 5.6 mm diameter. Pancreas: Partially obscured by bowel, visualized aspects unremarkable. Right kidney: Appears unremarkable measuring 10.1 cm in length. The resistive index is 0.61 Upper abdominal aorta and IVC: Patent. Ascites: None visualized. IMPRESSION: Mild hepatomegaly with increased echogenicity throughout the liver which can be seen with fatty infil tration or other infiltrative process Report Dictated By: Jessica Rivero MD at 04/18/2018 10:05 AM Report E-Signed By: Jessica Rivero MD at 04/18/2018 10:07 AM WSN:[email or web address]
== END ==
LOC: US 01:54
PROVIDERS: ATTEND Nurse Practitioner Family
DX: K76.0 Fatty (change of) liver, not elsewhere classified (principal)
CPT/HCPCS: 36415; 76705; 82728; 83540; 83550; 85025; 86706; 86707; 87340; 87350; 87522

== ENCOUNTER → 2018-05-25 | Outpatient (CLI) | payer BC ==
[2017-02-26 10:24] VITALS: BMI 41.3
[2018-05-25 12:24] LABS: PLATELET COUNT, AUTOMATED 344 K/uL (150-450)
== END ==
LOC: LAB 12:09
PROVIDERS: ATTEND Internal Medicine Rheumatology
DX: M05.79 Rheumatoid arthritis with rheumatoid factor of multiple sites without organ or systems involvement (principal); Z79.899 Other long term (current) drug therapy
CPT/HCPCS: 36415; 82565; 84450; 85025; 85651

== ENCOUNTER → 2018-05-25 | Outpatient (CLI) | payer BC ==
[2017-02-26 10:24] VITALS: BMI 41.3
== END ==
LOC: LAB 12:08
PROVIDERS: ATTEND Nurse Practitioner Family
DX: K76.0 Fatty (change of) liver, not elsewhere classified (principal); R23.2 Flushing
CPT/HCPCS: 36415; 82465; 83718; 84443; 84478

== ENCOUNTER 2018-06-02 08:53 | Emergency (ER) | payer BC ==
[2017-02-26 10:24] VITALS: BMI 41.3
--- NOTE | 2018-06-02 08:59 | ER Report ---
History and Physical Time Seen By MD: 08:59 Hx. of Stated Complaint: PATIENT REPORTS PAIN AND SWELLING IN HER RIGHT LOWER JAW HPI/ROS This is a 57-year-old female presents to the emergency department with a known fracture to for 6 months. She states that the tooth had not bothered her until approximately 2 days ago at which time she describes 8 out of 10 pain. She called her dentist, but her dentist is out of town on a family emergency. She presented to the emergency department requesting antibiotics until she can see her dentist on Tuesday. She feared the infection would worsen. No fever or chills, no trismus, and she is taking by mouth without difficulty. No other complaints. Allergies: Coded Allergies: Sulfa (Sulfonamide Antibiotics) (Unverified Allergy, Unknown, RASH, ) oxycodone (Verified Adverse Reaction, Intermediate, NAUSEA/VOMITING, 02/07/18) propofol (Verified Adverse Reaction, Intermediate, PARANOIA, AGITATED, 02/07/18) Uncoded Allergies: HAYFEVER (Allergy, Intermediate, SINUS CONGESTION, 02/08/17) Home Meds Active Scripts Fluconazole (DIFLUCAN) 150 Mg Tablet, 150 MG PO QDAY for 2 Days, #2 Prov:JODI WOOD MD 06/02/18 Clindamycin Hcl (CLINDAMYCIN HCL) 300 Mg Capsule, 300 MG PO Q8H, #30 CAPSULE Prov:JODI WOOD MD 06/02/18 Duloxetine HCl (Duloxetine HCl) 60 Mg Capsule.dr, 1 CAP PO DAILY, #90 TAB 0 Refills Prov:OLMAN CARVER APRN-C 05/23/18 Hydrocodone Bit/Acetaminophen (HYDROCODON-ACETAMINOPHEN 5-325) 1 Each Tablet, 1 TAB PO TID PRN for pain, #90 TAB 0 Refills Prov:OLMAN CARVER APRN-C 04/04/18 Ropinirole Hcl (REQUIP) 2 Mg Tablet, 1 TAB PO BID, #180 TAB 5 Refills Prov:OLMAN CARVER APRN-C 04/12/17 Reported Medications Ondansetron (ZOFRAN ODT) 4 Mg Tab.rapdis, 4 MG PO PRN, TAB.CATALINO 02/07/18 Ondansetron Hcl (ZOFRAN) 4 Mg Tablet, 4 MG PO QWEEK, TAB 02/07/18 Leucovorin Calcium (LEUCOVORIN CALCIUM) 5 Mg Tablet, 5 MG PO QWK 02/07/18 Methotrexate Sodium (METHOTREXATE) 2.5 Mg Tablet, 5 TAB PO WEEKLY BID 01/09/18 Meloxicam (MELOXICAM) Unknown Strength Tablet, 7.5 PO QAM 10/04/17 Biotin (BIOTIN) 1 Mg Tablet, 1 MG PO DAILY 08/23/17 Folic Acid (FOLIC ACID) 1 Mg Tablet, 1 TAB PO QDAY, TAB 08/23/17 Cetirizine Hcl (ZYRTEC) 10 Mg Capsule, 10 MG PO QDAY PRN for CONGESTION, CAPSULE 02/08/17 Cholecalciferol (Vitamin D3) (VITAMIN D-3) 2,000 Unit Capsule, 4000 UNIT PO QDAY, #100 CAPSULE 12/09/16 Reviewed Nurses Notes: Yes Old Medical Records Reviewed: Yes Hx Smoking: No Smoking Status: Never Smoker Exposure to Second Hand Smoke?: No (WAS EXPOSED IN THE PAST. NONE FOR 20 YEARS) Hx Substance Use Disorder: No Hx Alcohol Use: Yes Constitutional Vital Sign - Last 24 Hours 06/02/18 08:57 Temp 97.6 Pulse 69 Resp 20 B/P (MAP) 155/92 Pulse Ox 94 O2 Delivery Room Air Physical Exam General Appearance: Alert, no distress. Eyes: Pupils equal and round no pallor or injection. ENT, Mouth:Multiple dental caries. TTP of the right lower molar. Fractured tooth. No abscess, no trismus, no submandibular swelling Nose: No bleeding. Mouth: Mucous membranes are moist. Throat: No erythema or exudates there is no tonsillar hypertrophy and uvula is midline. Musculoskeletal: Neck is supple non tender, no adenopathy. Skin: Warm and dry, no rashes. DIFFERENTIAL DIAGNOSIS: After history and physical exam differential diagnosis was considered for dental abscess, deep space infection, localized dental infection Medical Decision Making ED Course/Re-evaluation ED Course Uncomplicated localize dental infection secondary to a fractured tooth. No tr ismus, no fever chills, no abscess or other evidence of deep space infections to the mouth or tongue. The patient has a dental appointment on Tuesday. In the meantime she was given a prescription for clindamycin to control despite of infection prior to seeing her dentist in 3 days. Decision to Disposition Date: Jun 02, 2018 Decision to Disposition Time: 09:19 Depart Departure Latest Vital Signs Vital Signs Date Time Temp Pulse Resp B/P (MAP) Pulse Ox O2 Delivery O2 Flow Rate FiO2 06/02/18 08:57 97.6 69 20 155/92 94 Room Air Impression: Primary Impression: DENTAL CARIES, UNSPECIFIED Condition: Improved Disposition: HOME OR SELF-CARE Referrals: OLMAN CARVER APRN [facility] (PCP) New Scripts Fluconazole (DIFLUCAN) 150 Mg Tablet 150 MG PO QDAY for 2 Days, #2 Prov: JODI WOOD MD 06/02/18 Clindamycin Hcl (CLINDAMYCIN HCL) 300 Mg Capsule 300 MG PO Q8H, #30 CAPSULE Prov: JODI WOOD MD 06/02/18 Patient Instructions: Dental Caries (ED) JODI WOOD MD Jun 02, 2018 08:59
[2018-06-02] MEDS ORDERED: CLIN300C99 PO (09:20)
[2018-06-02] MEDS ORDERED: FLUC150T40 PO (09:21)
[2018-06-02 09:30] VITALS: BP 156/94
[2018-06-02] MEDS ORDERED: HYDR-385 PO (11:54)
== END 2018-06-02 09:32 | disposition home or self-care (01) ==
LOC: ER 08:58
DX: K02.9 Dental caries, unspecified (principal)
CPT/HCPCS: 99282

== ENCOUNTER 2018-06-15 18:41 | Emergency (ER) | payer BC ==
[2017-02-26 10:24] VITALS: Wt 118.8 kg
--- NOTE | 2018-06-15 18:54 | ER Report ---
History and Physical Time Seen By MD: 18:54 HPI/ROS CHIEF COMPLAINT: Right hand pain HISTORY OF PRESENT ILLNESS: 57-year-old female patient presents to emergency room with complaint of right hand pain. Patient states she's been having pain at the proximal aspect of the right hand since the weekend. Patient states that she bent down to pick something up and felt a pop in her hand. She states that she's noticed a bruise. She denies any numbness or tingling, however she states the pain does radiate up to the distal finger. Patient states she is not taking any medication for this. She states she has not iced or used heat. Allergies: Coded Allergies: Sulfa (Sulfonamide Antibiotics) (Verified Allergy, Unknown, RASH, 06/15/18) oxycodone (Verified Adverse Reaction, Intermediate, NAUSEA/VOMITING, ) propofol (Verified Adverse Reaction, Intermediate, PARANOIA, AGITATED, 06/15/18) Uncoded Allergies: HAYFEVER (Allergy, Intermediate, SINUS CONGESTION, 02/08/17) Home Meds Active Scripts Hydrocodone Bit/Acetaminophen (HYDROCODON-ACETAMINOPHEN 5-325) 1 Each Tablet, 1 TAB PO TID PRN for pain, #90 TAB 0 Refills Prov:OLMAN CARVER APRN-C 06/02/18 Fluconazole (DIFLUCAN) 150 Mg Tablet, 150 MG PO QDAY for 2 Days, #2 Prov:JODI WOOD MD 06/02/18 Duloxetine HCl (Duloxetine HCl) 60 Mg Capsule.dr, 1 CAP PO DAILY, #90 TAB 0 Refills Prov:OLMAN CARVER APRN-C 05/23/18 Ropinirole Hcl (REQUIP) 2 Mg Tablet, 1 TAB PO BID, #180 TAB 5 Refills Prov:OLMAN CARVER APRNP-C 04/12/17 Reported Medications Ondansetron (ZOFRAN ODT) 4 Mg Tab.rapdis, 4 MG PO PRN, TAB.CATALINO 02/07/18 Ondansetron Hcl (ZOFRAN) 4 Mg Tablet, 4 MG PO QWEEK, TAB 02/07/18 Leucovorin Calcium (LEUCOVORIN CALCIUM) 5 Mg Tablet, 5 MG PO QWK 02/07/18 Methotrexate Sodium (METHOTREXATE) 2.5 Mg Tablet, 5 TAB PO WEEKLY BID 01/09/18 Meloxicam (MELOXICAM) Unknown Strength Tablet, 7.5 PO QAM 10/04/17 Biotin (BIOTIN) 1 Mg Tablet, 1 MG PO DAILY 08/23/17 Folic Acid (FOLIC ACID) 1 Mg Tablet, 1 TAB PO QDAY, TAB 08/23/17 Cetirizine Hcl (ZYRTEC) 10 Mg Capsule, 10 MG PO QDAY PRN for CONGESTION, CAPSULE 02/08/17 Cholecalciferol (Vitamin D3) (VITAMIN D-3) 2,000 Unit Capsule, 4000 UNIT PO QDAY, #100 CAPSULE 12/09/16 Discontinued Scripts Clindamycin Hcl (CLINDAMYCIN HCL) 300 Mg Capsule, 300 MG PO Q8H, #30 CAPSULE Prov:JODI WOOD MD 06/02/18 Past Medical/Surgical History Patient has a past medical history of restless leg syndrome, migraines, A. fib, bronchitis, wheezing, pneumonia, IBS, reflux, fibromyalgia, rheumatoid ar thritis, osteoarthritis, left ankle fracture, wrist fracture, back pain, alcohol use. Patient has surgical history of ablation, wrist surgery, knee surgery, back surgery, tonsillectomy, eye surgery, breast reduction surgery, lumpectomy. Reviewed Nurses Notes: Yes Hx Smoking: No Smoking Status: Never Smoker Exposure to Second Hand Smoke?: No (WAS EXPOSED IN THE PAST. NONE FOR 20 YEARS) Hx Substance Use Disorder: No Hx Alcohol Use: Yes Constitutional Vital Sign - Last 24 Hours 06/15/18 18:55 Temp 98.7 Pulse 77 Resp 18 B/P (MAP) 121/73 Pulse Ox 94 O2 Delivery Room Air Physical Exam General appearance: Alert no distress. Respiratory: Chest is non tender, lungs are clear to auscultation. Cardiac: Regular rate and rhythm. Musculoskeletal: Patient does have tenderness to the palmar aspect of the proximal right hand on the ulnar side. There is no swelling, patient does have very slight bruising. DIFFERENTIAL DIAGNOSIS: After history and physical exam differential diagnosis was considered for contusion, fracture, strain. Medical Decision Making EKG/Imaging Imaging Exam type: 3 views right hand History: pain, popped when picking something up Comparison: None. Findings: There is no acute fracture the right hand. Subchondral lucencies involving the distal aspects of the proximal phalanges of the right 2nd and 3rd fingers in the PIP joints is noted. Carpus aligns appropriately. No other erosive changes are seen. Patient has normal mineralization. Soft tissues are normal. IMPRESSION: 1. No acute osseous abnormality of the right hand. 2. Subchondral lucencies near the right 2nd and 3rd PIP joints could indicate a subtle erosive arthropathy. Report Dictated By: Rick Kilpatrick MD at 06/15/2018 8:05 PM Report E-Signed By: Rick Kilpatrick MD at 06/15/2018 8:07 PM ED Course/Re-evaluation ED Course Patient was admitted to examined, history and physical were obtained. The differential diagnoses were considered. On examination patient does have some tenderness to the proximal palm of the right hand. There is some slight discoloration in the wrist. X-rays done of the right hand. Her no acute fractures noted. I discussed findings with patient. We did place her in a splint as described below. We will go ahead and discharge patient home at this time. She is to limit her activity by pain. She states her wrist 2-3 times a day. She is to follow-up with her primary care provider in the next week. Reason for the splint was more for comfort. Patient verbalized understanding and agreement with plan. Procedure: Splint placement. A Colles' splint was applied. After application of the splint I re-examined the patient. The splint was adequately immobilizing the joint and distal to the splint the patient's circulation and sensation was intact. Decision to Disposition Date: Jun 15, 2018 Decision to Disposition Time: 20:17 Depart Departure Latest Vital Signs Vital Signs Date Time Temp Pulse Resp B/P (MAP) Pulse Ox O2 Delivery O2 Flow Rate FiO2 06/15/18 18:55 98.7 77 18 121/73 94 Room Air Impression: Primary Impression: Right wrist sprain Condition: Improved Disposition: HOME OR SELF-CARE Referrals: OLMAN CARVER APRN [facility] (PCP) Patient Instructions: Wrist Sprain (ED) Additional Instructions: Limit activity by pain. Get plenty of rest. Ice the wrist 2-3 times a day for 10-15 minutes. Take Tylenol or Ibuprofen as needed for pain. Follow up with your primary care provider. Wear splint when you are active. Problem Qualifiers Primary Impression: Right wrist sprain Encounter type: initial encounter Qualified Codes: S63.501A - Unspecified sprain of right wrist, initial encounter NADIRA SANCHEZ [facility] Jun 15, 2018 18:54
[2018-06-15 18:55] VITALS: BP 121/73
--- NOTE | 2018-06-15 20:11 | RADIOLOGY IMAGING REPORT ---
FACILITY: [facility] - [place] PATIENT NAME: Shania Padilla : 1960 MR: [id number] V: [id number] EXAM DATE: ORDERING PHYSICIAN: NADIRA SANCHEZ TECHNOLOGIST: Location: [facility] Patient: Shania Padilla : 1960 Visit/Account:[id number] Date of Sevice: 06/15/2018 Exam type: 3 views right hand History: pain, popped when picking something up Comparison: None. Findings: There is no acute fracture the right hand. Subchondral lucencies involving the distal aspects of the proximal phalanges of the right 2nd and 3rd fingers in the PIP joints is noted. Carpus aligns appropr iately. No other erosive changes are seen. Patient has normal mineralization. Soft tissues are normal . IMPRESSION: 1. No acute osseous abnormality of the right hand. 2. Subchondral lucencies near the right 2nd and 3rd PIP joints could indicate a subtle erosive arthro neli. Report Dictated By: Rick Kilpatrick MD at 06/15/2018 8:05 PM Report E-Signed By: Rick Kilpatrick MD at 06/15/2018 8:07 PM WSN:[id number]
== END 2018-06-15 20:40 | disposition home or self-care (01) ==
LOC: ER 18:59
DX: S63.501A Unspecified sprain of right wrist, initial encounter (principal)
CPT/HCPCS: 73130; 99283; L3763

== ENCOUNTER → 2018-06-30 | Outpatient (CLI) | payer BC ==
[2017-02-26 10:24] VITALS: BMI 41.3
[2018-06-30 11:04] LABS: PLATELET COUNT, AUTOMATED 308 K/uL (150-450)
== END ==
LOC: LAB 08:49
PROVIDERS: ATTEND Internal Medicine Rheumatology
DX: M05.79 Rheumatoid arthritis with rheumatoid factor of multiple sites without organ or systems involvement (principal); Z79.899 Other long term (current) drug therapy
CPT/HCPCS: 36415; 82565; 84450; 85025; 85651

== ENCOUNTER → 2018-06-30 | Outpatient (CLI) | payer BC ==
[2017-02-26 10:24] VITALS: BMI 41.3
--- NOTE | 2018-06-30 14:07 | RADIOLOGY IMAGING REPORT ---
FACILITY: PATIENT NAME: SARAH AYALA : [id number] MR: [id number] V: [id number] EXAM DATE: [id number] ORDERING PHYSICIAN: MAYO VELASQUEZ TECHNOLOGIST: Alina Cunha PROCEDURE:BILATERAL DIAGNOSTIC DIGITAL MAMMOGRAM WITH CAD ASSISTED INTERPRETATION & 3D TOMOSYNTHESIS COMPARISON:Right breast surgical specimen from 11/03/17, Bilateral diagnostic mammogram 09/15/17 & 01/02/16. VIEWS OBTAINED: Bilateral 2D full field CC & MLO & corresponding 3D tomography INDICATIONS:Six month follow-up/Right superior breast surgical excision biopsy demonstrating small area of fat necrosis & benign lymph node. The patient currently has slow healing skin lesions primarily in the upper outer quadrant of the right breast. Patient takes Methotrexate for rheumatoid arthritis. TISSUE DENSITY: Predominantly fatty tissue. FINDINGS: Right axillary lymph nodes are diffusely larger compared to 11/03/17. The Right superior breast asymmetry seen on the prior diagnostic mammogram of 09/21/17 and has been excised. A new focal asymmetry in this area represents a surgical scar. Left breast and left axillary lymph nodes have not changed. DIAGNOSTIC CATEGORY 0--INCOMPLETE: NEED ADDITIONAL IMAGING EVALUATION. RECOMMENDATIONS: ULTRASOUND: RIGHT BREAST. Right axillary Ultrasound with attention to the lymph nodes. IMPRESSION: BIRADS 0: Incomplete, need additional imaging. Dictated by: Shari Natarajan M.D. on 06/30/2018 at 12:23 Transcribed by: RUPERT on 06/30/2018 at 13:32 Approved by: Shari Natarajan M.D. on 06/30/2018 at 14:06 [facility]
--- NOTE | 2018-06-30 14:08 | RADIOLOGY IMAGING REPORT ---
FACILITY: [facility] PATIENT NAME: SARAH AYALA : [id number] MR: [id number] V: [id number] EXAM DATE: [id number] ORDERING PHYSICIAN: MAYO VELASQUEZ TECHNOLOGIST: Chele Owusu RDMS, JEMMA PROCEDURE:US RIGHT BREAST COMPARISON:None. INDICATIONS:Six month follow-up/Enlarging Right axillary lymph nodes. There are several non healing skin lesions in the Right breast upper outer quadrant. FINDINGS: Four axillary lymph nodes are identified. All maintain a fatty hilum. An 11mm lymph node has a thicker anterior than posterior cortex, but the others have fairly uniform cortices. The ultrasound appearance of the lymph nodes is most consistent with reactive lymph nodes. DIAGNOSTIC CATEGORY 3--PROBABLY BENIGN FINDING. RECOMMENDATIONS: SIX MONTH FOLLOW-UP DIAGNOSTIC MAMMOGRAM: RIGHT BREAST. SIX MONTH FOLLOW-UP ULTRASOUND: RIGHT AXILLA. IMPRESSION: BIRADS 3: Probably benign finding. I discussed the results & recommendations with the patient following these studies. Dictated by: Shari Natarajan M.D. on 06/30/2018 at 12:28 Transcribed by: RUPERT on 06/30/2018 at 13:56 Approved by: Shari Natarajan M.D. on 06/30/2018 at 14:07 [facility]
== END ==
LOC: MAMO 04:30
PROVIDERS: ATTEND Surgery
DX: R92.8 Other abnormal and inconclusive findings on diagnostic imaging of breast (principal); N63.20 Unspecified lump in the left breast, unspecified quadrant
CPT/HCPCS: 77062; 77066

== ENCOUNTER 2018-07-05 14:23 | Emergency (ER) | payer BC ==
[2017-02-26 10:24] VITALS: Wt 119.7 kg
--- NOTE | 2018-07-05 14:30 | ER Report ---
History and Physical Time Seen By : 14:30 HPI/ROS CHIEF COMPLAINT: Dog bite HISTORY OF PRESENT ILLNESS: 58-year-old female patient presents to emergency room with complaint of a dog bite. Patient states that she was at her neighbor's house and the dog became upset. She put her hand down to help calm it. At that time he did take a bite. She states that she initially didn't think much of it, however noted that she was bleeding profusely. She states she did apply some pressure. She states that her pain currently is an 8 out of 10. She denies having any numbness or tingling. She is able move her fingers without any difficulties. Patient has not taken any medication for this. Allergies: Coded Allergies: Sulfa (Sulfonamide Antibiotics) (Verified Allergy, Unknown, RASH, 06/15/18) oxycodone (Verified Adverse Reaction, Intermediate, NAUSEA/VOMITING, 06/15/18) propofol (Verified Adverse Reaction, Intermediate, PARANOIA, AGITATED, 06/15/18) Uncoded Allergies: HAYFEVER (Allergy, Intermediate, SINUS CONGESTION, 02/08/17) Home Meds Active Scripts Amoxicillin/Pot Clav 875-125 Mg Tab (AUGMENTIN 875-125 TABLET) 1 Each Tablet, 1 TAB PO Q12H, #20 TAB Prov:NADIRA SANCHEZ 07/05/18 Hydrocodone Bit/Acetaminophen (HYDROCODON-ACETAMINOPHEN 5-325) 1 Each Tablet, 1 TAB PO TID PRN for pain, #90 TAB 0 Refills Prov:OLMAN CARVER APRN-C 06/02/18 Fluconazole (DIFLUCAN) 150 Mg Tablet, 150 MG PO QDAY for 2 Days, #2 Prov:JODI WOOD MD 06/02/18 Duloxetine HCl (Duloxetine HCl) 60 Mg Capsule.dr, 1 CAP PO DAILY, #90 TAB 0 Refills Prov:OLMAN CARVER APRN-C 05/23/18 Ropinirole Hcl (REQUIP) 2 Mg Tablet, 1 TAB PO BID, #180 TAB 5 Refills Prov:OLMAN CARVER APRN-C 04/12/17 Reported Medications Ondansetron (ZOFRAN ODT) 4 Mg Tab.rapdis, 4 MG PO PRN, TAB.CATALINO 02/07/18 Ondansetron Hcl (ZOFRAN) 4 Mg Tablet, 4 MG PO QWEEK, TAB 02/07/18 Leucovorin Calcium (LEUCOVORIN CALCIUM) 5 Mg Tablet, 5 MG PO QWK 02/07/18 Methotrexate Sodium (METHOTREXATE) 2.5 Mg Tablet, 5 TAB PO WEEKLY BID 01/09/18 Meloxicam (MELOXICAM) Unknown Strength Tablet, 7.5 PO QAM 10/04/17 Biotin (BIOTIN) 1 Mg Tablet, 1 MG PO DAILY 08/23/17 Folic Acid (FOLIC ACID) 1 Mg Tablet, 1 TAB PO QDAY, TAB 08/23/17 Cetirizine Hcl (ZYRTEC) 10 Mg Capsule, 10 MG PO QDAY PRN for CONGESTION, CAPSULE 02/08/17 Cholecalciferol (Vitamin D3) (VITAMIN D-3) 2,000 Unit Capsule, 4000 UNIT PO QDAY, #100 CAPSULE 12/09/16 Past Medical/Surgical History Patient has a past medical history of restless leg syndrome, migraines, A. fib, bronchitis, asthma, wheezing, pneumonia, IBS, colonoscopy, fibromyalgia, osteoarthritis, left ankle fracture, wrist fracture, rheumatoid arthritis, alcohol use. Patient has surgical history of breast reduction, lumpectomy, right lens replacement, left lens replacement, tonsillectomy, back surgery, wrist surgery, right knee replacement, cardiac ablation. Reviewed Nurses Notes: Yes Hx Smoking: No Smoking Status: Never Smoker Exposure to Second Hand Smoke?: No (WAS EXPOSED IN THE PAST. NONE FOR 20 YEARS) Hx Substance Use Disorder: No Hx Alcohol Use: Yes Constitutional Vital Sign - Last 24 Hours 07/05/18 14:36 Temp 98.3 Pulse 75 Resp 20 B/P (MAP) 162/89 Pulse Ox 93 O2 Delivery Room Air Physical Exam General appearance: Alert no distress. Respiratory: Chest is non tender, lungs are clear to auscultation. Cardiac: Regular rate and rhythm. Skin: Patient has 3 puncture tse to the left palmar aspect of thumb. The most proximal does appear to be the deepest. Patient has good mobility. No numbness tingling. She is tender to touch. DIFFERENTIAL DIAGNOSIS: After history and physical exam differential diagnosis was considered for dogbite. Medical Decision Making EKG/Imaging Imaging HAND COMPLETE LEFT Indication: Dogbite. Comparison: None Available. Findings: 3 views of the left hand are obtained. No acute fracture or dislocation is seen. There is gauze material about the hand. This limits evaluation of the soft tissues particularly for small flecks of gas. There has been prior plate and screw fixation of the distal left radius. Mild changes of osteoarthritis are seen involving various fingers. This is most pronounced at the DIP joint of the left long finger. IMPRESSION: 1. No acute fracture or dislocation of the left hand. 2. Mild severity osteoarthritis involving various interphalangeal joints of the fingers. Report Dictated By: Ky Gustafson at 07/05/2018 3:19 PM Report E-Signed By: Ky Gustafson at 07/05/2018 3:22 PM ED Course/Re-evaluation ED Course Patient was admitted to an exam room, history and physical were obtained. Differential diagnoses were considered. On examination patient does have 3 puncture wounds to the proximal palmar aspect of the left thumb. The wound as well as proximal does go into the subcutaneous tissue. X-rays were done of the left hand which were negative. The wounds were anesthetized using 1% lidocaine. The wound was flushed and cleaned. A dressing was placed. I discussed the findings of the x-ray with the patient. We'll go ahead and start her on Augmentin 875/125 one tab by mouth twice a day 7 days. He is follow-up with her primary care provider next week to make sure that she is healing well. She is to return to emergency room if condition worsens. I would like her to monitor for any signs of infection. Patient verbalized understanding and agreement with plan. Patient will be discharged home at this time. Decision to Disposition Date: Jul 05, 2018 Decision to Disposition Time: 15:03 Depart Departure Latest Vital Signs Vital Signs Date Time Temp Pulse Resp B/P (MAP) Pulse Ox O2 Delivery O2 Flow Rate FiO2 07/05/18 14:36 98.3 75 20 162/89 93 Room Air Impression: Primary Impression: Dog bite of hand Condition: Improved Disposition: HOME OR SELF-CARE Referrals: OLMAN CARVER APRNP-C (PCP) New Scripts Amoxicillin/Pot Clav 875-125 Mg Tab (AUGMENTIN 875-125 TABLET) 1 Each Tablet 1 TAB PO Q12H, #20 TAB Prov: NADIRA SANCHEZ 07/05/18 Patient Instructions: Animal Bite (ED) Additional Instructions: Keep wound clean. Limit activity by pain. You may change the dressing as needed. Follow up with your primary care provider in the next week. Return to the ER if condition worsens. Monitor for signs of infection; redness, swelling, heat, discharge, increasing pain or red streaking. Problem Qualifiers Primary Impression: Dog bite of hand Encounter type: initial encounter Laterality: left Qualified Codes: S61.452A - Open bite of left hand, initial encounter; W54.0XXA - Bitten by dog, initial encounter NADIRA SANCHEZ Jul 05, 2018 14:30
[2018-07-05 14:36] VITALS: BP 162/89
[2018-07-05] MEDS ORDERED: DIPHTH/TETANUS/ACEL. PERTUSSIS IM ONLY ONE (15:00)
[2018-07-05] MEDS ORDERED: AMOX-559 PO (15:02)
--- NOTE | 2018-07-05 15:27 | RADIOLOGY IMAGING REPORT ---
FACILITY: [facility] PATIENT NAME: Shania Padilla : 1960 MR: [id number] V: [id number] EXAM DATE: ORDERING PHYSICIAN: NADIRA SANCHEZ TECHNOLOGIST: Location: [facility] Patient: Shania Padilla : 1960 Visit/Account:[id number] Date of Sevice: 07/05/2018 HAND COMPLETE LEFT Indication: Dogbite. Comparison: None Available. Findings: 3 views of the left hand are obtained. No acute fracture or dislocation is seen. There is gauze mater ial about the hand. This limits evaluation of the soft tissues particularly for small flecks of gas. There has been prior plate and screw fixation of the distal left radius. Mild changes of osteoarthrit is are seen involving various fingers. This is most pronounced at the DIP joint of the left long fing er. IMPRESSION: 1. No acute fracture or dislocation of the left hand. 2. Mild severity osteoarthritis involving various interphalangeal joints of the fingers. Report Dictated By: Ky Gustafson at 07/05/2018 3:19 PM Report E-Signed By: Ky Gustafson at 07/05/2018 3:22 PM WSN:[id number]
== END 2018-07-05 15:52 | disposition home or self-care (01) ==
LOC: ER 14:36
DX: S61.452A Open bite of left hand, initial encounter (principal); W54.0XXA Bitten by dog, initial encounter
CPT/HCPCS: 90471; 90715; 99283

== ENCOUNTER 2018-07-22 14:28 | Emergency (ER) | payer BC ==
[2017-02-26 10:24] VITALS: Wt 120.7 kg
[~2018-07-22 14:28] MED LIST changes: -HYDR-4305 PO; -HYDR-4309 PO; +HYDR-627 PO; +HYDR-653 PO
--- NOTE | 2018-07-22 14:41 | ER Report ---
History and Physical Time Seen By MD: 14:41 Hx. of Stated Complaint: GENERAL BODY PAIN DUE TO FALL 3 DAYS AGO HPI/ROS CHIEF COMPLAINT: Left leg, low back, left forearm, left wrist, left foot, right ribs pain HISTORY OF PRESENT ILLNESS: 58-year-old female patient presents to emergency room with complaint of pain to the left wrist, left elbow, left forearm, left knee, left foot, low back, bilateral hips, right ribs pain. Patient states that night she was leaving the living room to do something when she got tangled up in her mother's oxygen. She states that she tripped and fell. She states she landed on the right side, she does have a bruise to the right leg, however she states she has significant pain to the left side. She states she does take hydrocodone normally and states that she still has fair amount of pain. She did get an injection into her back by Dr. Osman, who she discussed the following with and was instructed to go to the emergency room. She states that she is obligated to the emergency room now and she's been taking care of her mother. REVIEW OF SYSTEMS: Respiratory: No cough, no dyspnea. Cardiovascular: No chest pain, no palpitations. Gastrointestinal: No vomiting, no abdominal pain. Musculoskeletal: As noted above Allergies: Coded Allergies: Sulfa (Sulfonamide Antibiotics) (Verified Allergy, Unknown, RASH, 07/22/18) oxycodone (Verified Adverse Reaction, Intermediate, NAUSEA/VOMITING, 07/22/18) propofol (Verified Adverse Reaction, Intermediate, PARANOIA, AGITATED, 07/22/18) Uncoded Allergies: HAYFEVER (Allergy, Intermediate, SINUS CONGESTION, 02/08/17) Home Meds Active Scripts Hydrocodone Bit/Acetaminophen (HYDROCODON-ACETAMINOPHEN 5-325) 1 Each Tablet, 1 TAB PO TID PRN for pain, #90 TAB 0 Refills Prov:OLMAN CARVER APRNP-C 07/10/18 Duloxetine HCl (Duloxetine HCl) 60 Mg Capsule., 1 CAP PO DAILY, #90 TAB 0 Refills Prov:OLMAN CARVER APRN CIVIL TRANSPORTATION ENGINEER-C 05/23/18 Ropinirole Hcl (REQUIP) 2 Mg Tablet, 1 TAB PO BID, #180 TAB 5 Refills Prov:OLMAN CARVER APRN CIVIL TRANSPORTATION ENGINEER-C 04/12/17 Reported Medications Leucovorin Calcium (LEUCOVORIN CALCIUM) 5 Mg Tablet, 5 MG PO QWK 02/07/18 Meloxicam (MELOXICAM) Unknown Strength Tablet, 7.5 PO QAM 10/04/17 Biotin (BIOTIN) 1 Mg Tablet, 1 MG PO DAILY 08/23/17 Cetirizine Hcl (ZYRTEC) 10 Mg Capsule, 10 MG PO QDAY PRN for CONGESTION, CAPSULE 02/08/17 Cholecalciferol (Vitamin D3) (VITAMIN D-3) 2,000 Unit Capsule, 4000 UNIT PO QDAY, #100 CAPSULE 12/09/16 Discontinued Reported Medications Ondansetron (ZOFRAN ODT) 4 Mg Tab.rapdis, 4 MG PO PRN, TAB.CATALINO 02/07/18 Ondansetron Hcl (ZOFRAN) 4 Mg Tablet, 4 MG PO QWEEK, TAB 02/07/18 Methotrexate Sodium (METHOTREXATE) 2.5 Mg Tablet, 5 TAB PO WEEKLY BID 01/09/18 Folic Acid (FOLIC ACID) 1 Mg Tablet, 1 TAB PO QDAY, TAB 08/23/17 Discontinued Scripts Amoxicillin/Pot Clav 875-125 Mg Tab (AUGMENTIN 875-125 TABLET) 1 Each Tablet, 1 TAB PO Q12H, #20 TAB Prov:NADIRA SANCHEZ CIVIL TRANSPORTATION ENGINEER 07/05/18 Fluconazole (DIFLUCAN) 150 Mg Tablet, 150 MG PO QDAY for 2 Days, #2 Prov:JODI WOOD MD 06/02/18 Past Medical/Surgical History Patient has a past medical history of versus leg syndrome, migraines, A. fib, wheezing, bronchitis, asthma, pneumonia, IBS, reflux, rheumatoid arthritis, fibromyalgia, osteoarthritis, left ankle fracture, wrist fracture, alcohol use, fibromyalgia. Patient has a surgical history of a cardiac ablation, wrist surgery, breast redu ction, knee replacement, surgery and left foot, back surgery, tonsillectomy, eye surgery 2. Reviewed Nurses Notes: Yes Hx Smoking: No Smoking Status: Never Smoker Exposure to Second Hand Smoke?: No (WAS EXPOSED IN THE PAST. NONE FOR 20 YEARS) Hx Substance Use Disorder: No Hx Alcohol Use: Yes Constitutional Vital Sign - Last 24 Hours 07/22/18 07/22/18 07/22/18 07/22/18 14:28 14:36 14:38 14:58 Temp 98.4 Pulse 78 80 72 Resp 11 B/P (MAP) 133/96 (108) 133/96 Pulse Ox 91 95 93 O2 Delivery Room Air Room Air Room Air 07/22/18 07/22/18 07/22/18 07/22/18 15:00 16:08 16:13 16:19 Pulse 65 73 B/P (MAP) 139/82 (101) 151/85 (107) Pulse Ox 97 93 O2 Delivery Room Air Room Air 07/22/18 07/22/18 07/22/18 16:30 16:43 17:00 Pulse 65 B/P (MAP) 148/83 (104) 149/81 (103) Pulse Ox 96 O2 Delivery Room Air Physical Exam General Appearance: The patient is alert, has no immediate need for airway protection and no current signs of toxicity. Respiratory: Chest is non tender, lungs are clear to auscultation. Cardiac: regular rate and rhythm Gastrointestinal: Abdomen is soft and non tender, no masses, bowel sounds normal. Musculoskeletal: Neck: Neck is supple and non tender. Extremities have full range of motion and are non tender. Patient has tenderness to the left wrist, left elbow, left foot, left knee, low back, bilateral hips and right ribs. There is only a bruise noted on the right lower leg. No obvious swelling noted. Skin: No rashes or lesions. DIFFERENTIAL DIAGNOSIS: After history and physical exam differential diagnosis was considered for contusion, fracture, strain. Medical Decision Making EKG/Imaging Imaging Lumbar spine Indication: Fall 3 days ago with pain Comparison: None available FINDINGS: 4 views of the lumbar spine were obtained. There are 5 lumbar type vertebral bodies. There is no acute osseous or acute alignment abnormality. No evidence of spondylolisthesis or spondylolysis. The vertebral body heights appear well-maintained. Moderate degenerative disc disease at L5-S1 with loss of disc height, endplate sclerosis, and mild marginal osteophytes. Additional multilevel mild degenerative disc disease and facet arthropathy. IMPRESSION: 1. No acute osseous or acute alignment abnormality of the lumbar spine. 2. Degenerative findings, as above. Report Dictated By: Michel Damian MD at 07/22/2018 4:43 PM Report E-Signed By: Michel Damian MD at 07/22/2018 4:45 PM 2 views of the chest with 2 views of the right lower ribs INDICATION: Fall with pain. COMPARISON: May 17, 2017. FINDINGS: 2 view chest shows heart size within normal limits. There is no focal infiltrate or consolidation. There is no pneumothorax or pleural effusion. NICU abnormalities of the thoracic spine. Views of lower right ribs show no acute fracture or acute osseous abnormality. IMPRESSION: 1. No acute cardiopulmonary process. 2. No acute osseous abnormality of the lower right ribs or evidence of pneumothorax. Report Dictated By: Michel Damian MD at 07/22/2018 4:39 PM Report E-Signed By: Michel Damian MD at 07/22/2018 4:41 PM Exam type: FOREARM LEFT, WRIST LEFT MIN 3 VIEW, ELBOW 3 VIEW LEFT Indication: Fall 3 days ago with pain Comparison: None available Findings: Left forearm: Two views of the left forearm show no evidence of fracture, dislocation, or acute osseous abnormality. Plate and screw fixation hardware along the distal radius without visualized complication. There is no focal soft tissue abnormality. Nonspecific small ossific density anterior and medial to the proximal/mid forearm, which may be related to remote injury or soft other nonspecific benign soft tissue calcification. Left wrist 3 views of the left wrist No evidence of fracture, dislocation, or acute osseous abnormality left wrist. Unremarkable plain screw fixation hardware along the distal radius. No evidence of radiopaque foreign body. There is no focal soft tissue abnormality. Mild degenerative changes of the first CMC joint. Left elbow: 3 views of the left elbow No evidence of fracture, dislocation, or acute osseous abnormality left elbow. No evidence of elbow joint effusion. There is no focal soft tissue abnormality. No evidence of radiopaque foreign body. Mild degenerative changes. IMPRESSION: 1. No acute findings of the left wrist, left forearm, or left elbow. Report Dictated By: Michel Damian MD at 07/22/2018 4:33 PM Report E-Signed By: Michel Damian MD at 07/22/2018 4:39 PM FOOT 3 VIEW LEFT Indication: Fall 3 days ago with pain Comparison: None Available Findings: 3 views of the left foot were obtained. No evidence of fracture, dislocation, or acute osseous abnormality of the left foot. There is no focal soft tissue abnormality. No evidence of radiopaque foreign body. Mild degenerative changes of the first MTP joint. Moderate sized plantar calcaneal spur. IMPRESSION: 1.No acute osseous abnormality of the left foot Report Dictated By: Michel Damian MD at 07/22/2018 4:42 PM Report E-Signed By: Michel Damian MD at 07/22/2018 4:43 PM HIPS BILATERAL INDICATION: Fall 3 days ago with pain COMPARISON: None available FINDINGS: No evidence of fracture, dislocation, or acute osseous abnormality of the bones of the pelvis/hips. IMPRESSION: 1. No acute osseous abnormality of the pelvis/hips. Report Dictated By: Michel Damian MD at 07/22/2018 4:41 PM Report E-Signed By: Michel Damian MD at 07/22/2018 4:42 PM KNEE 4 VIEW LEFT Indication: Pain after fall Comparison: 02/10/2018 Findings: No evidence of fracture, dislocation, or acute osseous abnormality of the left knee. There is mild tricompartmental degenerative osteoarthritis. Mild lateral tracking of the patella is again noted. There is a stable trace joint effusion There is no focal soft tissue abnormality. No evidence of radiopaque foreign body. IMPRESSION: 1.No acute osseous abnormality of the left knee Report Dictated By: Moisés Daily at 07/22/2018 4:41 PM Report E-Signed By: Moisés Daily at 07/22/2018 4:43 PM ED Course/Re-evaluation ED Course Patient was admitted on exam room, history and physical were obtained. Differential diagnoses were considered. On examination lungs are clear, heart is regular, abdomen is soft nontender. Patient does have tenderness over the left knee, left foot, left wrist, left forearm, left elbow, right ribs, bilateral hips and lumbar spine. X-rays were performed of all those areas. Patient had no fractures. I discussed the findings with patient. I believe that she does have some bruising secondary to fall. She is to limit her to a pain. She states, ibuprofen as if her pain. She is return to emergency room if condition worsens. She is to follow-up with her primary care provider in the next week. Patient v erbalized understanding and agreement with plan. Decision to Disposition Date: Jul 22, 2018 Decision to Disposition Time: 17:01 Depart Departure Latest Vital Signs Vital Signs Date Time Temp Pulse Resp B/P (MAP) Pulse Ox O2 Delivery O2 Flow Rate FiO2 07/22/18 17:00 149/81 (103) 07/22/18 16:43 65 96 Room Air 07/22/18 14:38 98.4 11 Impression: Primary Impression: Contusion of left arm Additional Impressions: Contusion of left knee Contusion of left foot Chest wall contusion Condition: Improved Disposition: HOME OR SELF-CARE Referrals: OLMAN CARVER APRN CIVIL TRANSPORTATION ENGINEER-C (PCP) Patient Instructions: Contusion in Adults (ED) Additional Instructions: Limit activity by pain. Ice the sore locations. Follow up with your primary care provider in the next week. Return to the ER if condition worsens. Continue with current medications. Problem Qualifiers Primary Impression: Contusion of left arm Encounter type: initial encounter Qualified Codes: S40.022A - Contusion of left upper arm, initial encounter Additional Impressions: Contusion of left knee Encounter type: initial encounter Qualified Codes: S80.02XA - Contusion of left knee, initial encounter Contusion of left foot Encounter type: initial encounter Qualified Codes: S90.32XA - Contusion of left foot, initial encounter Chest wall contusion Encounter type: initial encounter Laterality: right Qualified Codes: S20.211A - Contusion of right front wall of thorax, initial encounter NADIRA SANCHEZ CIVIL TRANSPORTATION ENGINEER Jul 22, 2018 14:41
--- NOTE | 2018-07-22 16:43 | RADIOLOGY IMAGING REPORT ---
F[place] [facility] [place]IENT NAME: Shania Padilla : 1960 MR: [id number] V: [id number] EXAM DATE: [id number] ORDERING PHYSICIAN: NADIRA SANCHEZ TECHNOLOGIST: Location: [facility] [place] Patient: Shania Padilla : 1960 Visit/Account:[id number] Date of Sevice: 07/22/2018 Exam type: FOREARM LEFT, WRIST LEFT MIN 3 VIEW, ELBOW 3 VIEW LEFT Indication: Fall 3 days ago with pain Comparison: None available Findings: Left forearm: Two views of the left forearm show no evidence of fracture, dislocation, or acute osseous abnormality . Plate and screw fixation hardware along the distal radius without visualized complication. There is no focal soft tissue abnormality. Nonspecific small ossific density anterior and medial to the proximal/mid forearm, which may be relat ed to remote injury or soft other nonspecific benign soft tissue calcification. Left wrist 3 views of the left wrist No evidence of fracture, dislocation, or acute osseous abnormality left wrist. Unremarkable plain screw fixation hardware along the distal radius. No evidence of radiopaque foreign body. There is no focal soft tissue abnormality. Mild degenerative changes of the first CMC joint. Left elbow: 3 views of the left elbow No evidence of fracture, dislocation, or acute osseous abnormality left elbow. No evidence of elbow joint effusion. There is no focal soft tissue abnormality. No evidence of radiopaque foreign body. Mild degenerative changes. IMPRESSION: 1. No acute findings of the left wrist, left forearm, or left elbow. Report Dictated By: Michel Damian MD at 07/22/2018 4:33 PM Report E-Signed By: Michel Damian MD at 07/22/2018 4:39 PM [id number]
--- NOTE | 2018-07-22 16:44 | RADIOLOGY IMAGING REPORT ---
FACILITY: [facility] PATIENT NAME: Shania Padilla : 1960 MR: [id number] V: [id number] EXAM DATE: [id number] ORDERING PHYSICIAN: NADIRA SANCHEZ TECHNOLOGIST: Location: [facility] - [place] Patient: Shania Padilla : 1960 Visit/Account:[id number] Date of Sevice: 07/22/2018 Exam type: FOREARM LEFT, WRIST LEFT MIN 3 VIEW, ELBOW 3 VIEW LEFT Indication: Fall 3 days ago with pain Comparison: None available Findings: Left forearm: Two views of the left forearm show no evidence of fracture, dislocation, or acute osseous abnormality . Plate and screw fixation hardware along the distal radius without visualized complication. There is no focal soft tissue abnormality. Nonspecific small ossific density anterior and medial to the proximal/mid forearm, which may be relat ed to remote injury or soft other nonspecific benign soft tissue calcification. Left wrist 3 views of the left wrist No evidence of fracture, dislocation, or acute osseous abnormality left wrist. Unremarkable plain screw fixation hardware along the distal radius. No evidence of radiopaque foreign body. There is no focal soft tissue abnormality. Mild degenerative changes of the first CMC joint. Left elbow: 3 views of the left elbow No evidence of fracture, dislocation, or acute osseous abnormality left elbow. No evidence of elbow joint effusion. There is no focal soft tissue abnormality. No evidence of radiopaque foreign body. Mild degenerative changes. IMPRESSION: 1. No acute findings of the left wrist, left forearm, or left elbow. Report Dictated By: Michel Damian MD at 07/22/2018 4:33 PM Report E-Signed By: Michel Damian MD at 07/22/2018 4:39 PM [id number]
--- NOTE | 2018-07-22 16:44 | RADIOLOGY IMAGING REPORT ---
FACILITY: [facility] - [place] PATIENT NAME: Shania Padilla : 1960 MR: [id number] V: [id number] EXAM DATE: [id number] ORDERING PHYSICIAN: NADIRA SANCHEZ TECHNOLOGIST: Location: [facility] - [place] Patient: Shania Padilla : 1960 Visit/Account:[id number] Date of Sevice: 07/22/2018 Exam type: FOREARM LEFT, WRIST LEFT MIN 3 VIEW, ELBOW 3 VIEW LEFT Indication: Fall 3 days ago with pain Comparison: None available Findings: Left forearm: Two views of the left forearm show no evidence of fracture, dislocation, or acute osseous abnormality . Plate and screw fixation hardware along the distal radius without visualized complication. There is no focal soft tissue abnormality. Nonspecific small ossific density anterior and medial to the proximal/mid forearm, which may be relat ed to remote injury or soft other nonspecific benign soft tissue calcification. Left wrist 3 views of the left wrist No evidence of fracture, dislocation, or acute osseous abnormality left wrist. Unremarkable plain screw fixation hardware along the distal radius. No evidence of radiopaque foreign body. There is no focal soft tissue abnormality. Mild degenerative changes of the first CMC joint. Left elbow: 3 views of the left elbow No evidence of fracture, dislocation, or acute osseous abnormality left elbow. No evidence of elbow joint effusion. There is no focal soft tissue abnormality. No evidence of radiopaque foreign body. Mild degenerative changes. IMPRESSION: 1. No acute findings of the left wrist, left forearm, or left elbow. Report Dictated By: Michel Damian MD at 07/22/2018 4:33 PM Report E-Signed By: Michel Damian MD at 07/22/2018 4:39 PM WSN:[id number]
--- NOTE | 2018-07-22 16:45 | RADIOLOGY IMAGING REPORT ---
FACILITY: [facility] PATIENT NAME: Shania Padilla : 1960 MR: [id number] V: [id number] EXAM DATE: ORDERING PHYSICIAN: NADIRA SANCHEZ TECHNOLOGIST: Location: [facility] [place] Patient: Shania Padilla : 1960 Visit/Account:[id number] Date of Sevice: 07/22/2018 2 views of the chest with 2 views of the right lower ribs INDICATION: Fall with pain. COMPARISON: May 17, 2017. FINDINGS: 2 view chest shows heart size within normal limits. There is no focal infiltrate or consoli dation. There is no pneumothorax or pleural effusion. NICU abnormalities of the thoracic spine. Views of lower right ribs show no acute fracture or acute osseous abnormality. IMPRESSION: 1. No acute cardiopulmonary process. 2. No acute osseous abnormality of the lower right ribs or evidence of pneumothorax. Report Dictated By: Michel Damian MD at 07/22/2018 4:39 PM Report E-Signed By: Michel Damian MD at 07/22/2018 4:41 PM WSN:[id number]
--- NOTE | 2018-07-22 16:46 | RADIOLOGY IMAGING REPORT ---
FACILITY: [facility] PATIENT NAME: Shania Padilla : 1960 MR: [id number] V: [id number] EXAM DATE: ORDERING PHYSICIAN: NADIRA SANCHEZ TECHNOLOGIST: Location: [facility] Patient: Shania Padilla : 1960 Visit/Account:[id number] Date of Sevice: 07/22/2018 KNEE 4 VIEW LEFT Indication: Pain after fall Comparison: 02/10/2018 Findings: No evidence of fracture, dislocation, or acute osseous abnormality of the left knee. There is mild tricompartmental degenerative osteoarthritis. Mild lateral tracking of the patella is a gain noted. There is a stable trace joint effusion There is no focal soft tissue abnormality. No evidence of radiopaque foreign body. IMPRESSION: 1.No acute osseous abnormality of the left knee Report Dictated By: Moisés Daily at 07/22/2018 4:41 PM Report E-Signed By: Moisés Daily at 07/22/2018 4:43 PM WSN:[id number]
--- NOTE | 2018-07-22 16:46 | RADIOLOGY IMAGING REPORT ---
FACILITY: [facility] - [place] PATIENT NAME: Shania Padilla : 1960 MR: [id number] V: [id number] EXAM DATE: ORDERING PHYSICIAN: NADIRA SANCHEZ TECHNOLOGIST: Location: [facility] - [place] Patient: Shania Padilla : 1960 Visit/Account:[id number] Date of Sevice: 07/22/2018 2 views of the chest with 2 views of the right lower ribs INDICATION: Fall with pain. COMPARISON: May 17, 2017. FINDINGS: 2 view chest shows heart size within normal limits. There is no focal infiltrate or consoli dation. There is no pneumothorax or pleural effusion. NICU abnormalities of the thoracic spine. Views of lower right ribs show no acute fracture or acute osseous abnormality. IMPRESSION: 1. No acute cardiopulmonary process. 2. No acute osseous abnormality of the lower right ribs or evidence of pneumothorax. Report Dictated By: Michel Damian MD at 07/22/2018 4:39 PM Report E-Signed By: Michel Damian MD at 07/22/2018 4:41 PM WSN:[id number]
--- NOTE | 2018-07-22 16:47 | RADIOLOGY IMAGING REPORT ---
FACILITY: [facility] PATIENT NAME: Shania Padilla : 1960 MR: [id number] V: [id number] EXAM DATE: ORDERING PHYSICIAN: NADIRA SANCHEZ TECHNOLOGIST: [facility] Patient: Shania Padilla : 1960 Visit/Account:[id number] Date of Sevice: 07/22/2018 HIPS BILATERAL INDICATION: Fall 3 days ago with pain COMPARISON: None available FINDINGS: No evidence of fracture, dislocation, or acute osseous abnormality of the bones of the pelvis/hips. IMPRESSION: 1. No acute osseous abnormality of the pelvis/hips. Report Dictated By: Michel Damian MD at 07/22/2018 4:41 PM Report E-Signed By: Michel Damian MD at 07/22/2018 4:42 PM WSN:[id number]
--- NOTE | 2018-07-22 16:47 | RADIOLOGY IMAGING REPORT ---
FACILITY: [facility] - [place] PATIENT NAME: Shania Padilla : 1960 MR: [id number] V: [id number] EXAM DATE: ORDERING PHYSICIAN: NADIRA SANCHEZ TECHNOLOGIST: Location: [facility] - [place] Patient: Shania Padilla : 1960 Visit/Account:[id number] Date of Sevice: 07/22/2018 FOOT 3 VIEW LEFT Indication: Fall 3 days ago with pain Comparison: None Available Findings: 3 views of the left foot were obtained. No evidence of fracture, dislocation, or acute osseous abnormality of the left foot. There is no focal soft tissue abnormality. No evidence of radiopaque foreign body. Mild degenerative changes of the first MTP joint. Moderate sized plantar calcaneal spur. IMPRESSION: 1.No acute osseous abnormality of the left foot Report Dictated By: Michel Damian MD at 07/22/2018 4:42 PM Report E-Signed By: Michel Damian MD at 07/22/2018 4:43 PM WSN:[id number]
--- NOTE | 2018-07-22 16:48 | RADIOLOGY IMAGING REPORT ---
FACILITY: [facility] - [place] PATIENT NAME: Shania Padilla : 1960 MR: [id number] V: [id number] EXAM DATE: ORDERING PHYSICIAN: NADIRA SANCHEZ TECHNOLOGIST: Location: [facility] - [place] Patient: Shania Padilla : 1960 Visit/Account:[id number] Date of Sevice: 07/22/2018 Lumbar spine Indication: Fall 3 days ago with pain Comparison: None available FINDINGS: 4 views of the lumbar spine were obtained. There are 5 lumbar type vertebral bodies. There is no acute osseous or acute alignment abnormality. No evidence of spondylolisthesis or spondylolysis. The vertebral body heights appear well-maintained. Moderate degenerative disc disease at L5-S1 with loss of disc height, endplate sclerosis, and mild ma rginal osteophytes. Additional multilevel mild degenerative disc disease and facet arthropathy. IMPRESSION: 1. No acute osseous or acute alignment abnormality of the lumbar spine. 2. Degenerative findings, as above. Report Dictated By: Michel Damian MD at 07/22/2018 4:43 PM Report E-Signed By: Michel Damian MD at 07/22/2018 4:45 PM WSN:[id number]
[2018-07-22 17:00] VITALS: BP 149/81
== END 2018-07-22 17:13 | disposition home or self-care (01) ==
LOC: ER 14:44
DX: S40.022A Contusion of left upper arm, initial encounter (principal); S80.02XA Contusion of left knee, initial encounter; S90.32XA Contusion of left foot, initial encounter; S20.211A Contusion of right front wall of thorax, initial encounter; W01.0XXA Fall on same level from slipping, tripping and stumbling without subsequent striking against object, initial encounter
CPT/HCPCS: 71046; 71100; 72120; 73522; 73564; 99284

== ENCOUNTER 2018-09-04 09:14 | Emergency (ER) | payer BC ==
[2017-02-26 10:24] VITALS: Wt 120.7 kg
[~2018-09-04 09:14] MED LIST changes: +FLU60VIA41 IM
--- NOTE | 2018-09-04 09:35 | ER Report ---
History and Physical Time Seen By MD: 09:34 Hx. of Stated Complaint: CHOKING EPISODE 4 DAYS AGO - NONPRODUCTIVE COUGH NOW HPI/ROS CHIEF COMPLAINT: Cough, shortness breath HISTORY OF PRESENT ILLNESS: Patient is a 58-year-old female here with complaints of cough, shortness breath for the past several days. She reports that her symptoms started shortly after choking on a piece of pie several days ago. She is concerned however that she may have bronchitis or pneumonia and wanted to be evaluated to rule out pneumonia. She did receive immunization against pneumonia. She has currently saturating at 100% on room air in no acute respiratory distress. Lungs clear to auscultation. Patient is afebrile. REVIEW OF SYSTEMS: Constitutional: No fever, no chills. Eyes: No discharge. ENT: No sore throat. Cardiovascular: No chest pain, no palpitations. Respiratory: + non productive cough, + shortness of breath. Gastrointestinal: No abdominal pain, no vomiting. Genitourinary: No hematuria. Musculoskeletal: No back pain. Skin: No rashes. Neurological: No headache. Allergies: Coded Allergies: Sulfa (Sulfonamide Antibiotics) (Verified Allergy, Unknown, RASH, 07/22/18) oxycodone (Verified Adverse Reaction, Intermediate, NAUSEA/VOMITING, 07/22/18) propofol (Verified Adverse Reaction, Intermediate, PARANOIA, AGITATED, 07/22/18) Uncoded Allergies: HAYFEVER (Allergy, Intermediate, SINUS CONGESTION, 02/08/17) Home Meds Active Scripts Fluconazole (DIFLUCAN) 150 Mg Tablet, 1 TAB PO ONCE, #1 TAB 0 Refills Prov:OLMAN CARVER APRN RECORDINGS LIBRARIAN-C 09/12/18 Bumetanide (BUMETANIDE) 2 Mg Tab, 1 TAB PO QDAY, #30 TAB 1 Refill Prov:OLMAN CARVER APRN RECORDINGS LIBRARIAN-C 09/12/18 Potassium Chloride (POTASSIUM CHLORIDE) 10 Meq Tab.er.prt, 1 TAB PO QDAY, #30 TAB 1 Refill Prov:OLMAN CARVER APRN RECORDINGS LIBRARIAN-C 09/12/18 Amoxicillin/Pot Clav 875-125 Mg Tab (AUGMENTIN 875-125 TABLET) 1 Each Tablet, 1 TAB PO Q12H, #20 TAB Prov:OLMAN CARVER APRN RECORDINGS LIBRARIAN-C 09/12/18 Ipratropium/Albuterol Sulfate (IPRAT-ALBUT 0.5-3(2.5) MG/3 ML) 3 Ml Ampul.neb, 3 ML IH QID PRN for WHEEZING, #1 BOX 0 Refills Prov:YINGARACELIOLMANLUCIUS CASTELLANOS RECORDINGS LIBRARIAN-C 09/05/18 Benzonatate (BENZONATATE) 200 Mg Capsule, 1 CAP PO TID, #30 CAPSULE 0 Refills Prov:OLMAN CARVER APRN RECORDINGS LIBRARIAN-C 09/05/18 Methylprednisolone (METHYLPREDNISOLONE) 4 Mg Tab.ds.pk, 4 MG PO DIRECTED, #1 DOSE-PACK 0 Refills Prov:OLMAN CARVER APRN RECORDINGS LIBRARIAN-C 09/05/18 Duloxetine HCl (Duloxetine HCl) 60 Mg Capsule.dr, 1 CAP PO DAILY, #90 TAB 0 Refills Prov:OLMAN CARVER APRN RECORDINGS LIBRARIAN-C 08/28/18 Hydrocodone Bit/Acetaminophen (HYDROCODON-ACETAMINOPHEN 5-325) 1 Each Tablet, 1 TAB PO TID PRN for pain, #90 TAB 0 Refills Prov:OLMAN CARVER APRN RECORDINGS LIBRARIAN-C 07/10/18 Ropinirole Hcl (REQUIP) 2 Mg Tablet, 1 TAB PO BID, #180 TAB 5 Refills Prov:OLMAN CARVER DOBIE MAN RECORDINGS LIBRARIAN-C 04/12/17 Reported Medications Leucovorin Calcium (LEUCOVORIN CALCIUM) 5 Mg Tablet, 5 MG PO QWK 02/07/18 Meloxicam (MELOXICAM) Unknown Strength Tablet, 7.5 PO QAM 10/04/17 Biotin (BIOTIN) 1 Mg Tablet, 1 MG PO DAILY 08/23/17 Cetirizine Hcl (ZYRTEC) 10 Mg Capsule, 10 MG PO QDAY PRN for CONGESTION, CAPSULE 02/08/17 Cholecalciferol (Vitamin D3) (VITAMIN D-3) 2,000 Unit Capsule, 4000 UNIT PO QDAY, #100 CAPSULE 12/09/16 Hx Smoking: No Smoking Status: Never Smoker Exposure to Second Hand Smoke?: No (WAS EXPOSED IN THE PAST. NONE FOR 20 YEARS) Hx Substance Use Disorder: No Hx Alcohol Use: Yes Constitutional Physical Exam General Appearance: The patient is alert, has no immediate need for airway protection and no signs of toxicity. NAD Eyes: Pupils equal and round no pallor or injection. ENT, Mouth: Mucous membranes are moist. Respiratory: There are no retractions, lungs are clear to auscultation. Cardiovascular: Regular rate and rhythm. Gastrointestinal: Abdomen is soft and non tender, no masses, bowel sounds normal. Neurological: No focal deficits Skin: Warm and dry, no rashes. Musculoskeletal: Neck is supple non tender. Extremities are nontender, nonswollen and have full range of motion. DIFFERENTIAL DIAGNOSIS: After history and physical exam differential diagnosis was considered for shortness of breath including but not limited to pulmonary infectious process, COPD, asthma, pulmonary embolus and congestive heart failure. Medical Decision Making EKG/Imaging Imaging Exam type: CHEST PA AND LAT History: POSSIBLE ASPIRATION Comparison: July 22, 2018. Findings: The lungs are free of acute effusions, infiltrates or edema. The cardiac swelling is normal in size. There is no evidence of a pneumothorax or pneumomediastinum. Visualized bones are unremarkable for age. IMPRESSION: 1. No acute cardiac pulmonary process is seen ED Course/Re-evaluation ED Course Patient is a 58-year-old female here with complaints of cough which is nonproductive, shortness breath for the past several days. Symptoms were preceded by a choking episode with pie. Patient is also concerned that she may have bronchitis or pneumonia and wanted to rule out pneumonia. She did receive a pneumonia immunization. Lungs are clear to auscultation, oxygen saturations were 100% on room air, patient was afebrile, hemodynamically stable at time of evaluation. Chest x-ray showed no acute findings. Patient was discharged in stable condition. Decision to Disposition Date: Sep 04, 2018 Decision to Disposition Time: 10:14 Depart Departure Latest Vital Signs Impression: Primary Impression: Upper respiratory infection Condition: Improved Disposition: HOME OR SELF-CARE Referrals: OLMAN CARVER APRNP-C (PCP) Patient Instructions: Acute Cough (GEN) Additional Instructions: Please drink plenty of water. Please follow-up with your family doctor in the next 3 days for follow-up evaluation and care. Please return promptly if you develop worsening cough, fevers, shortness breath, nausea vomiting, abdominal pains. ROGER YOU DO Sep 04, 2018 09:35
[2018-09-04 10:00] VITALS: BP 144/69
--- NOTE | 2018-09-04 10:01 | RADIOLOGY IMAGING REPORT ---
FACILITY: [facility] - [place], [place] PATIENT NAME: Shania Padilla : 1960 MR: [id number] V: [id number] EXAM DATE: ORDERING PHYSICIAN: ROGER YOU TECHNOLOGIST: Location: [facility] Patient: Shania Padilla : 1960 Visit/Account:[id number] Date of Sevice: 09/04/2018 Exam type: CHEST PA AND LAT History: POSSIBLE ASPIRATION Comparison: July 22, 2018. Findings: The lungs are free of acute effusions, infiltrates or edema. The cardiac swelling is normal in size. There is no evidence of a pneumothorax or pneumomediastinum. Visualized bones are unremarkable for age. IMPRESSION: 1. No acute cardiac pulmonary process is seen Report Dictated By: Jessica Rivero MD at 09/04/2018 9:52 AM Report E-Signed By: Jessica Rivero MD at 09/04/2018 9:55 AM WSN:[email or web address]
[2018-09-05] MEDS ORDERED: METH4TAB66 PO (13:16)
[2018-09-05] MEDS ORDERED: BENZ200C15 PO (13:16)
[2018-09-05] MEDS ORDERED: IPRA3AMP10 IH (13:41)
[2018-09-12] MEDS ORDERED: POTA-53 PO (13:15)
[2018-09-12] MEDS ORDERED: FLUC150T40 PO (13:15)
[2018-09-12] MEDS ORDERED: AMOX-559 PO (13:15)
[2018-09-12] MEDS ORDERED: BUM2 PO (13:15)
[2018-09-12] MEDS ORDERED: ROPI2TAB27 PO (16:40)
== END 2018-09-04 10:15 | disposition home or self-care (01) ==
LOC: ER 09:38
DX: J06.9 Acute upper respiratory infection, unspecified (principal)
CPT/HCPCS: 71046; 99283

== ENCOUNTER 2018-09-28 00:49 | Emergency (ER) | payer BC ==
[2017-02-26 10:24] VITALS: Wt 120.7 kg
[~2018-09-28 00:49] MED LIST changes: -PRED20TA6 PO
--- NOTE | 2018-09-28 00:50 | ER Report ---
History and Physical Time Seen By MD: 00:50 HPI/ROS CHIEF COMPLAINT: hives, itching, allergic reaction HISTORY OF PRESENT ILLNESS: 58-year-old female brought in by EMS from home complaining of hives on her lower extremities with severe itching. She also notes hives on her back and her abdomen. Patient states she's been taking medication for1 week, which she thinks she is allergic to. She's been taking Bumex for lower extremity edema. She just finished Augmentin for a upper respiratory infection as well as a course of prednisone. REVIEW OF SYSTEMS: Respiratory: No cough, no dyspnea. Cardiovascular: No chest pain, no palpitations. Gastrointestinal: No vomiting, no abdominal pain. Musculoskeletal: No back pain. Allergies: Coded Allergies: Sulfa (Sulfonamide Antibiotics) (Verified Allergy, Unknown, RASH, 09/28/18) oxycodone (Verified Adverse Reaction, Intermediate, NAUSEA/VOMITING, 09/28/18) propofol (Verified Adverse Reaction, Intermediate, PARANOIA, AGITATED, 09/28/18) Uncoded Allergies: HAYFEVER (Allergy, Intermediate, SINUS CONGESTION, 02/08/17) Home Meds Active Scripts Prednisone (PREDNISONE) 20 Mg Tablet, 20 MG PO QDAY for prevention of allergic reactio, #9 2 po qday for 3 days then 1 po q 2 by mouth daily for 3 days Prov:SCARLET LU DO 09/28/18 Ipratropium/Albuterol Sulfate (IPRAT-ALBUT 0.5-3(2.5) MG/3 ML) 3 Ml Ampul.neb, 3 ML IH QID PRN for WHEEZING, #1 BOX 0 Refills Prov:OLMAN CARVER APRN-C 09/25/18 Ropinirole Hcl (REQUIP) 2 Mg Tablet, 1 TAB PO BID, #180 TAB 1 Refill Prov:OLMAN CARVER APRN-C 09/12/18 Fluconazole (DIFLUCAN) 150 Mg Tablet, 1 TAB PO ONCE, #1 TAB 0 Refills Prov:OLMAN CARVER APRN-C 09/12/18 Bumetanide (BUMETANIDE) 2 Mg Tab, 1 TAB PO QDAY, #30 TAB 1 Refill Prov:OLMAN CARVER APRN-C 09/12/18 Potassium Chloride (POTASSIUM CHLORIDE) 10 Meq Tab.er.prt, 1 TAB PO QDAY, #30 TAB 1 Refill Prov:OLMAN CARVER APRNP-C 09/12/18 Duloxetine HCl (Duloxetine HCl) 60 Mg Capsule.dr, 1 CAP PO DAILY, #90 TAB 0 Refills Prov:OLMAN CARVER APRNP-C 08/28/18 Hydrocodone Bit/Acetaminophen (HYDROCODON-ACETAMINOPHEN 5-325) 1 Each Tablet, 1 TAB PO TID PRN for pain, #90 TAB 0 Refills Prov:OLMAN CARVER APRN-C 07/10/18 Reported Medications Leucovorin Calcium (LEUCOVORIN CALCIUM) 5 Mg Tablet, 5 MG PO QWK 02/07/18 Meloxicam (MELOXICAM) Unknown Strength Tablet, 7.5 PO QAM 10/04/17 Biotin (BIOTIN) 1 Mg Tablet, 1 MG PO DAILY 08/23/17 Cetirizine Hcl (ZYRTEC) 10 Mg Capsule, 10 MG PO QDAY PRN for CONGESTION, CAPSULE 02/08/17 Cholecalciferol (Vitamin D3) (VITAMIN D-3) 2,000 Unit Capsule, 4000 UNIT PO QDAY, #100 CAPSULE 12/09/16 Discontinued Scripts Amoxicillin/Pot Clav 875-125 Mg Tab (AUGMENTIN 875-125 TABLET) 1 Each Tablet, 1 TAB PO Q12H, #20 TAB Prov:OLMAN CARVER APRNP-C 09/12/18 Benzonatate (BENZONATATE) 200 Mg Capsule, 1 CAP PO TID, #30 CAPSULE 0 Refills Prov:OLMAN CARVER APRNP-C 09/05/18 Methylprednisolone (METHYLPREDNISOLONE) 4 Mg Tab.ds.pk, 4 MG PO DIRECTED, #1 DOSE-PACK 0 Refills Prov:OLMAN CARVER APRN-Reg 09/05/18 Past Medical/Surgical History Past Medical History Respiratory: Reports hx of: asthma Gastrointestinal: Reports hx of: GERD irritable bowel syndrome other GI history (Ulcers healed. ) Age at menopause: 55 Musculoskeletal: Reports hx of: fibromyalgia fractures (left wrist 2015 - had ORIF) rheumatoid arthritis Past Surgical History Neurologic: Reports hx of: Other neurologic surgery (Nerve Decompression Left Foot 08/2002) HEENT: Reports hx of: cataract extraction (Right Eye 03/1996 Left eye 02/2000) tonsillectomy (03/1996) Cardiovascular: Reports hx of: Vascular surgery Breast: Reports hx of: other breast surgery (reduction 2015) Musculoskeletal: Reports hx of: fracture repair (ORIF left wrist 2015) spinal surgery (10/1990; L4-L5;L5-S1) Reviewed Nurses Notes: Yes Old Medical Records Reviewed: Yes Hx Smoking: No Smoking Status: Never Smoker Exposure to Second Hand Smoke?: No (WAS EXPOSED IN THE PAST. NONE FOR 20 YEARS) Hx Substance Use Disorder: No Hx Alcohol Use: Yes Constitutional Vital Sign - Last 24 Hours 09/28/18 09/28/18 09/28/18 09/28/18 00:52 00:54 01:00 01:04 Temp 98.5 Pulse 83 81 Resp 16 B/P (MAP) 142/58 142/58 (86) 129/102 (111) Pulse Ox 94 98 09/28/18 09/28/18 09/28/18 09/28/18 01:05 01:05 01:11 01:19 Pulse 84 82 72 Resp 16 22 Pulse Ox 95 96 O2 Delivery Room Air 09/28/18 09/28/18 09/28/18 01:30 01:34 01:49 Pulse 76 82 B/P (MAP) 136/54 (81) Pulse Ox 94 93 Physical Exam Vital signs stable, afebrile, pulse ox normal General Appearance: The patient is alert, has no immediate need for airway protection and no current signs of toxicity. mild distress, no difficulty breathing HEENT: Pupils equal and round no injection.TMs normal, oropharynx without oropharyngeal swelling Respiratory: Chest is non tender, lungs are clear to auscultation., no wheezing Cardiac: regular rate and rhythm Gastrointestinal: Abdomen is soft and non tender, no masses, bowel sounds normal. Musculoskeletal: Neck: Neck is supple and non tender. Extremities have full range of motion and are non tender. Skin: No rashes or lesions.there are open wounds and scratch tse on her arms and legs. DIFFERENTIAL DIAGNOSIS: After history and physical exam differential diagnosis was considered for urticaria, allergic reaction, pruritus, anaphylaxis, neurogenic hives Medical Decision Making ED Course/Re-evaluation Clinical Indication for ER IV: IV Access ED Course Patient was admitted to an examination room. H&P was done. The differential diagnosis was considered. Patient was treated by EMS with Benadryl 50 mg by mouth. On arrival her hives have completely resolved. Her itching is much improved but still has some mild itching. She notes no throat swelling sensation. She notes only mild chest tightness. She has no difficulty breathing. Patient was treated with albuterol nebulizer treatment and a sodium Medrol 125 mg IV. She was observed for 45 minutes and showed continued improvement. She only has mild residual itching on the back of her legs. There no hives, no wheezing and no throat swelling sensation. Patient be discharged home on a low-dose prednisone taper. She is advised Benadryl 25-50 mg every 6-8 hours. Patient has follow-up with primary care tomorrow. Decision to Disposition Date: Sep 28, 2018 Decision to Disposition Time: 01:41 Depart Departure Latest Vital Signs Vital Signs Date Time Temp Pulse Resp B/P (MAP) Pulse Ox O2 Delivery O2 Flow Rate FiO2 09/28/18 01:49 82 93 09/28/18 01:30 136/54 (81) 09/28/18 01:11 22 09/28/18 01:05 Room Air 09/28/18 00:52 98.5 Impression: Primary Impression: Allergic reaction Additional Impressions: Pruritus Lower extremity edema Condition: Improved Disposition: HOME OR SELF-CARE Referrals: OLMAN CARVER APRN CALL PERSON-C (PCP) New Scripts Prednisone (PREDNISONE) 20 Mg Tablet 20 MG PO QDAY for prevention of allergic reactio, #9 2 po qday for 3 days then 1 po q 2 by mouth daily for 3 days Prov: SCARLET LU DO 09/28/18 Patient Instructions: General Allergic Reaction (ED) Additional Instructions: Take Benadryl 25 mg as needed 1-2 capsules as need everey 6-8 hours for itching or hives Problem Qualifiers Primary Impression: Allergic reaction Encounter type: initial encounter Qualified Codes: T78.40XA - Allergy, unspecified, initial encounter SCARLET LU DO Sep 28, 2018 00:50
[2018-09-28] MEDS ORDERED: methylPREDNIS SUCC 125 MG/2ML IVP ONE (01:00)
[2018-09-28] MEDS ORDERED: ALBUTEROL 2.5 MG/3 ML NEB NEB ONE (01:00)
[2018-09-28 01:30] VITALS: BP 136/54
[2018-09-28] MEDS ORDERED: PRED20TA6 PO ×2 (01:48→16:42)
[2018-09-29] MEDS ORDERED: HYDR-385 PO (16:49)
== END 2018-09-28 02:02 | disposition home or self-care (01) ==
LOC: ER 00:57
DX: T78.40XA Allergy, unspecified, initial encounter (principal); L29.9 Pruritus, unspecified; R60.0 Localized edema
CPT/HCPCS: 94640; 96374; 99283; J2930; J7613

== ENCOUNTER → 2018-09-28 | Outpatient (CLI) | payer BC ==
[2017-02-26 10:24] VITALS: BMI 41.3
[~2018-09-28] MED LIST changes: +BENZ200C15 PO; +PRED20TA6 PO
== END ==
LOC: AMB 00:27
PROVIDERS: ATTEND Nurse Practitioner
DX: T78.40XA Allergy, unspecified, initial encounter (principal); R20.0 Anesthesia of skin; R09.02 Hypoxemia
CPT/HCPCS: A0425; A0427

== ENCOUNTER → 2018-12-19 | Outpatient (CLI) | payer BC ==
[2017-02-26 10:24] VITALS: BMI 41.3
[~2018-12-19] MED LIST changes: +FURO-47 PO; +ONDA4TAB9 PO; +PRED20TA6 PO; +SPIR25TA76 PO
--- NOTE | 2018-12-19 17:07 | RADIOLOGY IMAGING REPORT ---
[place] [facility] [place] Shania Padilla : 1960 MR: [id number] V: [id number] EXAM DATE: ORDERING PHYSICIAN: ROCAEL LITTLE TECHNOLOGIST: Location: [facility] - [place] Patient: Shania Padilla : 1960 Visit/Account:[id number] Date of Sevice: 12/19/2018 XR WRIST 2 VWS LT HISTORY: Left wrist pain Additional history: None COMPARISON: Comparison radiographs 07/22/2018 and 08/12/2017 FINDINGS: Malleable plate again noted affixed to the distal radius unchanged. There is no residual post fractu re deformity of the radius. 2 mm round erosion in the tip of the ulnar styloid is unchanged from 201 7. Joints are unremarkable. IMPRESSION: No interval change. No new findings to explain patient's wrist pain Report Dictated By: Lawrence Huddleston MD at 12/19/2018 5:00 PM Report E-Signed By: Lawrence Huddleston MD at 12/19/2018 5:03 PM WSN:[email or web address]
== END ==
LOC: RAD 15:42
PROVIDERS: ATTEND Nurse Practitioner Primary Care
DX: M25.532 Pain in left wrist (principal)

== ENCOUNTER 2019-01-19 10:00 | Outpatient (RCR) | payer BC ==
[2017-02-26 10:24] VITALS: BMI 41.3
--- NOTE | 2019-01-02 11:32 | PT INITIAL EVALUATION ---
MEDICAL DIAGNOSIS: Lymphedema of B LE, Venous Stasis Ulcer of Right LE TREATMENT DIAGNOSIS: Phlebolymphedema, Venous Insufficiency DATE OF ONSET: 01/01/19 SUBJECTIVE: Shania is a 58 year old female presenting to physical therapy following gradual onset of B LE swelling. Pt reports that it has been on and off for a few years and the most recent swelling started around August 2018. Pt reports that the swelling no longer subsides with elevation but does get worse throughout the day. She reports that she has been placed on a diuretic but that she doesn't think that it works so she doesn't really take it consistently. Pt has a history of RA which she believes contributes to the edema. Pt also reports frequent wounds that pop up around the legs and that the legs are painful to walk on or to touch frequently. Wounds are all currently closed over an no longer weeping. 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 Pt has various ulcers present with scabbing over on both legs R>L all smaller than 1 cm in diameter. Palpation: Edema is hard on above the ankle on the R with pitting present on B dorsum 2+ and R anterior liang 3+. Special Tests: Stemmer's Sign (+) B dorsum and toes Other Objective Findings: Circumferential Measures in cm (R,L): 1st digit: 8.3, 8.4, 2nd: 6, 6.8, dorsum: 24, 23, arch: 24.4, 24.7, heel: 34.2, 34.5, above mal: 28.6, 28, figure 8: 59.2, 57, calf: 55.9, 54.8, below knee: 50.8, 50.4, above knee: 64.4, 60.3, length of liang floor to below knee: 42, 41. 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 Physical therapy consisting of CDT treatment with MLD and wrapping is indicated for this patient to address the above listed deficits to improve function with ALD's and progress towards independent management of this chronic condition. Short Term Goals In 4 weeks pt will reduce calf circumference to 53cm B for improved function and mobility with ADL's. In 4 weeks pt will have full healing of all ulcers on B LE for decreased risk of infection and improved function. In 4 weeks pt will be compliant with diuretic and compression garment management for venous insufficiency to reduce secondary lymphatic changes and improve function with ADL's. Patient's Goals Decrease edema in B LE. PLAN: Patient to be seen for Manual Therapy/STM/MET Range of Motion Stretching Neuromuscular Re-ed Closed Chain Program Posture/Body mechanics Home Exercise Program Mech./Manual Traction Therapeutic Activities 5x/Week for 4 Weeks If you have any questions, comments, or concerns about this report or plan, please contact me at . Thank you, Belkis Alvarado, PT, DPT, CLT MTDD
--- NOTE | 2019-01-15 09:45 | PT PLAN OF CARE ---
Physician: Sharif Bowie APRN CHIP LOFT WORKER-C Patient is being seen: 5x/Week Therapist: Belkis Alvarado, PT, DPT, CLT Medical Diagnosis: Lymphedema of B LE, Venous Stasis Ulcer of Right LE Treatment Diagnosis: Phlebolymphedema, Venous Insufficiency Date of Onset: 01/01/19 Date of Initial Evaluation: 01/01/19 Date patient was last seen: 01/15/19 Number of treatments: 10 Number of cancellations/No shows: 1 INTERVENTIONS: Manual Therapy/STM/MET Range of Motion Stretching Neuromuscular Re-ed Closed Chain Program Posture/Body mechanics Home Exercise Program Mech./Manual Traction Therapeutic Activities GOALS: In 4 weeks pt will reduce calf circumference to 53cm B for improved function and mobility with ADL's. MET In 4 weeks pt will have full healing of all ulcers on B LE for decreased risk of infection and improved function. MET In 4 weeks pt will be compliant with diuretic and compression garment management for venous insufficiency to reduce secondary lymphatic changes and improve function with ADL's. PATIENT'S GOAL: Decrease edema in B LE. Status of Patient's Goals: [g OPPT.GOALS] Patient Compliance: [g PT.GFPNA] Prognosis: Good Reasons for continuing therapy: Shania shows good reductions throughout the LE with edema no longer present in ankle and foot and pitting no longer present throughout the LE. Circumferential measures have reduced throughout with improved soft tissue mobility. Further PT is indicated to continue with lymphatic transport of remaining protein deposits on B shins and lateral R LE as well as progression towards independent compression garment use. OBJECTIVE: Pt has various ulcers present with scabbing over on both legs R>L all smaller than 1 cm in diameter all are fully closed and no longer weeping. Palpation: No pitting is present throughout with firmness still on B shins and lateral R LE Other Objective Findings: Circumferential Measures in cm (R,L): EVAL: 1st digit: 8.3, 8.4, 2nd: 6, 6.8, dorsum: 24, 23, arch: 24.4, 24.7, heel: 34.2, 34.5, above mal: 28.6, 28, figure 8: 59.2, 57, calf: 55.9, 54.8, below knee: 50.8, 50.4, above knee: 64.4, 60.3, length of liang floor to below knee: 42, 41. 4/: 1st digit: 87.7, 7.9, 2nd: 65.5, 5.5, dorsum: 22.1, 22, arch: 22.5, 22.9, heel: 31.3, 31, above mal: 24, 24.3, figure 8: 51.5, 52.2, calf: 51.5, 51.8, below knee: 47.1, 44.3, above knee: 55.6, 54.3, length of liang floor to below knee: 42, 41. If you have any questions, comments, or concerns about this report or plan, please contact me at . Thank you, Belkis Alvarado, PT, DPT, CLT MTDD
--- NOTE | 2019-01-19 10:34 | PT PLAN OF CARE ---
Physician: Sharif Bowie APRN NEEDLE PUNCH OPERATOR-C Patient is being seen: 5x/Week Therapist: Belkis Alvarado, PT, DPT, CLT Medical Diagnosis: Lymphedema of B LE, Venous Stasis Ulcer of Right LE Treatment Diagnosis: Phlebolymphedema, Venous Insufficiency Date of Onset: 01/01/19 Date of Initial Evaluation: 01/01/19 Date patient was last seen: 01/19/19 Number of treatments: 13 Number of cancellations/No shows: 1 INTERVENTIONS: Manual Therapy/STM/MET Range of Motion Stretching Neuromuscular Re-ed Closed Chain Program Posture/Body mechanics Home Exercise Program Mech./Manual Traction Therapeutic Activities GOALS: In 4 weeks pt will reduce calf circumference to 53cm B for improved function and mobility with ADL's. MET In 4 weeks pt will have full healing of all ulcers on B LE for decreased risk of infection and improved function. MET In 4 weeks pt will be compliant with diuretic and compression garment management for venous insufficiency to reduce secondary lymphatic changes and improve function with ADL's. MET PATIENT'S GOAL: Decrease edema in B LE. Status of Patient's Goals: 3/3 MET Patient Compliance: Good Prognosis: Good Reasons for discharge from therapy: Shania is to discharge from physical therapy at this time secondary to competition of 3/3 functional goals. Pt shows good reductions of circumferential volume and edema with associated decrease in protein content. At the time of discharge pt has full closure of all leg wounds and is independent with compression stocking use to maintain edema. Upon discharge pt is to continue with HEP and compression garment use for maintenance of reduction status. e. OBJECTIVE: Pt has various ulcers present with scabbing over on both legs R>L all smaller than 1 cm in diameter all are fully closed and no longer weeping. Palpation: No pitting is present throughout with firmness still on B shins and lateral R LE Other Objective Findings: Circumferential Measures in cm (R,L): EVAL: 1st digit: 8.3, 8.4, 2nd: 6, 6.8, dorsum: 24, 23, arch: 24.4, 24.7, heel: 34.2, 34.5, above mal: 28.6, 28, figure 8: 59.2, 57, calf: 55.9, 54.8, below knee: 50.8, 50.4, above knee: 64.4, 60.3, length of liang floor to below knee: 42, 41. 4/: 1st digit: 87.7, 7.9, 2nd: 65.5, 5.5, dorsum: 22.1, 22, arch: 22.5, 22.9, heel: 31.3, 31, above mal: 24, 24.3, figure 8: 51.5, 52.2, calf: 51.5, 51.8, below knee: 47.1, 44.3, above knee: 55.6, 54.3, length of liang floor to below knee: 42, 41. If you have any questions, comments, or concerns about this report or plan, please contact me at . Thank you, Belkis Alvarado, PT, DPT, CLT MTDD
[2019-01-26] MEDS ORDERED: ALB18R IH (15:26)
== END 2019-01-19 18:00 | disposition home or self-care (01) ==
LOC: PT 10:00
PROVIDERS: ATTEND Nurse Practitioner Family
DX: I89.0 Lymphedema, not elsewhere classified (principal); I83.019 Varicose veins of right lower extremity with ulcer of unspecified site
CPT/HCPCS: 97162

== ENCOUNTER → 2019-01-22 | Outpatient (CLI) | payer BC ==
[2017-02-26 10:24] VITALS: BMI 41.3
== END ==
LOC: LAB 13:08
PROVIDERS: ATTEND Nurse Practitioner Family
DX: Z02.9 Encounter for administrative examinations, unspecified (principal)

== ENCOUNTER → 2019-01-22 | Outpatient (CLI) | payer BC ==
[2017-02-26 10:24] VITALS: BMI 41.3
[2019-01-22 13:50] LABS: PLATELET COUNT, AUTOMATED 341 K/uL (150-450)
--- NOTE | 2019-01-22 14:43 | RADIOLOGY IMAGING REPORT ---
FACILITY: [facility] PATIENT NAME: Shania Padilla : 1960 MR: [id number] V: [id number] EXAM DATE: ORDERING PHYSICIAN: LODIA ALMENDAREZ TECHNOLOGIST: Location: [facility] [place] Patient: Shania Padilla : 1960 Visit/Account:[id number] Date of Sevice: 01/22/2019 Technique: CERVICAL SPINE 2 OR 3 VIEW HISTORY: Preop for wrist surgery, history of RA Comparison studies: None FINDINGS: There is no acute fracture. No widening of the atlantoaxial joint space. There is interve rtebral disc space narrowing noted at C5-C6 with endplate osteophytosis and sclerosis at this respect winston level. No motion abnormality. IMPRESSION: 1. No abnormal motion. 2. Degenerative findings at C5-C6. Report Dictated By: Juliano Silva DO at 01/22/2019 2:36 PM Report E-Signed By: Juliano Silva DO at 01/22/2019 2:38 PM WSN:[email or web address]
== END ==
LOC: LAB 13:12
PROVIDERS: ATTEND Internal Medicine Rheumatology
DX: M05.79 Rheumatoid arthritis with rheumatoid factor of multiple sites without organ or systems involvement (principal); Z79.899 Other long term (current) drug therapy
CPT/HCPCS: 72040; 85025; 85651

== ENCOUNTER → 2019-01-22 | Outpatient (CLI) | payer BC ==
[2017-02-26 10:24] VITALS: BMI 41.3
== END ==
LOC: RAD 13:10
PROVIDERS: ATTEND Anesthesiology
DX: Z01.812 Encounter for preprocedural laboratory examination (principal); M43.6 Torticollis; T84.84XA Pain due to internal orthopedic prosthetic devices, implants and grafts, initial encounter
CPT/HCPCS: 36415; 82040; 82247; 82310; 82374; 82435; 82565; 82947; 84075; 84132; 84155; 84295; 84450; 84460; 84520

== ENCOUNTER → 2019-01-24 | Outpatient (CLI) | payer BC ==
[2017-02-26 10:24] VITALS: BMI 41.3
--- NOTE | 2019-01-24 16:19 | EKG ---
FACILITY: [facility] [place] PATIENT NAME: SARAH AYALA : [id number] MR: [id number] V: [id number] EXAM DATE: ORDERING PHYSICIAN: SABAS CAVAZOS TECHNOLOGIST: RAMONA Test Reason : PRE OP Blood Pressure : / mmHG Vent. Rate : 080 BPM Atrial Rate : 080 BPM P-R Int : 142 ms QRS Dur : 072 ms QT Int : 408 ms P-R-T Axes : 067 040 034 degrees QTc Int : 470 ms Normal sinus rhythm Normal ECG When compared with ECG of 10-FEB-2018 16:31, No significant change was found Confirmed by Michael Lorenz ([id number]) on 01/24/2019 7:47:07 PM Referred By: MACY Confirmed By:Michael Terrazas
== END ==
LOC: RESP 15:42
PROVIDERS: ATTEND Orthopaedic Surgery
DX: Z01.810 Encounter for preprocedural cardiovascular examination (principal); T84.210A Breakdown (mechanical) of internal fixation device of bones of hand and fingers, initial encounter; R60.9 Edema, unspecified; I48.91 Unspecified atrial fibrillation; G25.81 Restless legs syndrome; M79.7 Fibromyalgia; M06.9 Rheumatoid arthritis, unspecified; J45.909 Unspecified asthma, uncomplicated; K21.9 Gastro-esophageal reflux disease without esophagitis
CPT/HCPCS: 93005

== ENCOUNTER 2019-02-08 17:51 | Emergency (ER) | payer BC ==
[2017-02-26 10:24] VITALS: Wt 124.3 kg
[~2019-02-08 17:51] MED LIST changes: +ALB18R IH
--- NOTE | 2019-02-08 18:01 | ER Report ---
History and Physical Time Seen By MD: 18:01 HPI/ROS CHIEF COMPLAINT: Drainage from left arm incision HISTORY OF PRESENT ILLNESS: 58-year-old female 9 days postop surgery to remove hardware and broken screws from her left arm by Dr. Fulton orthopedics. She was there yesterday for evaluation. Tonight she knows stairs. On drainage draining from the pin site on the ulna on the lateral aspect of her wrist. She notes no fever or chills. She notes increased pain at the site. Patient reports removing moderate green. On tissue and fluid from the area. There is a spot of oozing currently occurring at the site. A wound culture was performed of this material. Allergies: Coded Allergies: Sulfa (Sulfonamide Antibiotics) (Verified Allergy, Unknown, RASH, 02/08/19) oxycodone (Verified Adverse Reaction, Intermediate, NAUSEA/VOMITING, 02/08/19) propofol (Verified Adverse Reaction, Intermediate, PARANOIA, AGITATED, 02/08/19) Uncoded Allergies: HAYFEVER (Allergy, Intermediate, SINUS CONGESTION, 02/08/17) Home Meds Active Scripts Cephalexin 500 Mg Tab (KEFLEX 500 MG TAB) 500 Mg Tablet, 500 MG PO Q6H for infection, #28 TAB Prov:SCARLET LU DO 02/08/19 Spironolactone (ALDACTONE) 25 Mg Tablet, 1 TAB PO QDAY for 30 Days, #30 TAB 0 Re fills Prov:OLMAN CARVER APRN LEAD MOBILE DEVELOPER-C 02/01/19 Furosemide (FUROSEMIDE) 40 Mg Tablet, 1 TAB PO QDAY, #30 TAB 0 Refills Prov:OLMAN CARVER APRN LEAD MOBILE DEVELOPER-C 02/01/19 Hydrocodone Bit/Acetaminophen (HYDROCODON-ACETAMINOPHEN 5-325) 1 Each Tablet, 1 TAB PO TID PRN for pain, #90 TAB 0 Refills Prov:OLMAN CARVER APRN LEAD MOBILE DEVELOPER-C 02/01/19 Albuterol Sulfate (VENTOLIN HFA) 18 Gm Inh, 2 PUFF IH Q4H PRN for WHEEZING, #1 INHALER 0 Refills Prov:OLMAN CARVER APRN LEAD MOBILE DEVELOPER-C 01/26/19 Duloxetine HCl (Duloxetine HCl) 60 Mg Capsule.dr, 1 CAP PO DAILY, #90 TAB 0 Refills Prov:OLMAN CARVER JASMIN LEAD MOBILE DEVELOPER-C 12/12/18 Ropinirole Hcl (REQUIP) 2 Mg Tablet, 1 TAB PO BID, #180 TAB 1 Refill Prov:OLMAN CARVER JASMIN LEAD MOBILE DEVELOPER-C 09/12/18 Reported Medications Methotrexate Sodium (METHOTREXATE) 2.5 Mg Tablet, 25 MG PO QWEEK 12/19/18 Ondansetron 4 Mg Odt (ONDANSETRON 4 MG ODT) 4 Mg Tab.rapdis, 4 MG PO ONCE, TAB 12/19/18 Folic Acid (FOLIC ACID) 1 Mg Tablet, 1 TAB PO QDAY, TAB 12/19/18 Leucovorin Calcium (LEUCOVORIN CALCIUM) 5 Mg Tablet, 5 MG PO QWK 02/07/18 Biotin (BIOTIN) 1 Mg Tablet, 1 MG PO DAILY 08/23/17 Cetirizine Hcl (ZYRTEC) 10 Mg Capsule, 10 MG PO QDAY PRN for CONGESTION, CAPSULE 02/08/17 Cholecalciferol (Vitamin D3) (VITAMIN D-3) 2,000 Unit Capsule, 4000 UNIT PO QDAY, #100 CAPSULE 12/09/16 Past Medical/Surgical History Past Medical History Cardiovascular: Reports hx of: atrial fibrillation (ablation) Respiratory: Reports hx of: asthma Gastrointestinal: Reports hx of: GERD irritable bowel syndrome other GI history (Ulcers healed. ) Age at menopause: 55 Musculoskeletal: Reports hx of: fibromyalgia fractures (left wrist 2015 - had ORIF) rheumatoid arthritis Past Surgical History Neurologic: Reports hx of: Other neurologic surgery (Nerve Decompression Left Foot 08/2002) HEENT: Reports hx of: cataract extraction (Right Eye 03/1996 Left eye 02/2000) tonsillectomy (03/1996) Cardiovascular: Reports hx of: Vascular surgery Breast: Reports hx of: other breast surgery (reduction 2015) Musculoskeletal: Reports hx of: fracture repair (ORIF left wrist 2015 - Hardware removal and pinning 01/2019) spinal surgery (10/1990; L4-L5;L5-S1) Hx Smoking: No Smoking Status: Never Smoker Exposure to Second Hand Smoke?: No (WAS EXPOSED IN THE PAST. NONE FOR 20 YEARS) Hx Substance Use Disorder: No Hx Alcohol Use: Yes Constitutional Vital Sign - Last 24 Hours 02/08/19 02/08/19 17:59 19:00 Temp 97.8 Pulse 71 Resp 20 B/P (MAP) 132/70 130/73 (92) Pulse Ox 94 Physical Exam General appearance: Alert no distress. Respiratory: Chest is non tender, lungs are clear to auscultation. Cardiac: Regular rate and rhythm Extremities: Examination of the left upper extremity reveals a neurovascularly intact hand. There is a pin with an open wound, approximate 4 mm on the lateral distal ulnar surface. There is approximately 4-5 mm collection of purulent green fluid at the site. The surrounding tissue is barely erythematous. DIFFERENTIAL DIAGNOSIS: After history and physical exam differential diagnosis was considered for postoperative drainage, wound infection, Medical Decision Making Data Points Microbiology Microbiology Date/Time Source Procedure Growth Status 02/08/19 18:27 Arm Left Gram Stain - Final Resulted 02/08/19 18:27 Arm Left Wound Culture Pending Resulted 02/08/19 18:27 Arm Left Anaerobic Culture Pending Resulted ED Course/Re-evaluation ED Course Patient was admitted to an examination room. H&P was done. The differential diagnoses was considered. Patient had a wound culture performed of the purulent fluid draining from the site. Patient be started on Keflex 500 mg 4 times a day . She is advised to follow-up with Dr. Fulton. Her orthopedic tomorrow. Decision to Disposition Date: February 08, 2019 Decision to Disposition Time: 18:25 Depart Departure Latest Vital Signs Vital Signs Date Time Temp Pulse Resp B/P (MAP) Pulse Ox O2 Delivery O2 Flow Rate FiO2 02/08/19 19:00 130/73 (92) 02/08/19 17:59 97.8 71 20 94 Impression: Primary Impression: Wound infection Additional Impression: History of surgery on arm Condition: Improved Disposition: HOME OR SELF-CARE Referrals: OLMAN CARVER APRN LEAD MOBILE DEVELOPER-C (PCP) New Scripts Cephalexin 500 Mg Tab (KEFLEX 500 MG TAB) 500 Mg Tablet 500 MG PO Q6H for infection, #28 TAB Prov: SCARLET LU DO 02/08/19 Patient Instructions: Wound Infection (ED) Additional Instructions: Follow-up with Dr. Fulton or orthopedic doctor tomorrow Problem Qualifiers SCARLET LU DO February 08, 2019 18:01
[2019-02-08] MEDS ORDERED: CEPH500T7 PO (18:28)
[2019-02-08 19:00] VITALS: BP 130/73
== END 2019-02-08 19:08 | disposition home or self-care (01) ==
LOC: ER 18:09
DX: T81.49XA Infection following a procedure, other surgical site, initial encounter (principal)
CPT/HCPCS: 87070; 87073; 87077; 87186; 87205; 99282

== ENCOUNTER 2019-03-25 17:50 | Emergency (ER) | payer MEDICARE, MEDICAID ==
[2017-02-26 10:24] VITALS: Wt 124.3 kg
[~2019-03-25 17:50] MED LIST changes: -BUM2 PO; -BUME1TAB19 PO; +BUME1TAB21 PO; +BUME2TAB17 PO; -OMEP-125 PO; +OMEP-126 PO
[2019-03-25 17:59] VITALS: BP 130/101
--- NOTE | 2019-03-25 18:00 | ER Report ---
History and Physical Time Seen By MD: 17:57 HPI/ROS CHIEF COMPLAINT: Ingrown great toe HISTORY OF PRESENT ILLNESS: 58-year-old female patient presents to emergency room with complaint of ingrown toenail in the great toe. She states she's been dealing with this for the past weeks. States this got worse. She states her pain has gotten much worse. She states that she is trying to take care of it by herself, however she's not had any improvement. She denies any fevers, chills, nausea, vomiting or diarrhea. She states she is not taking any medication for this. REVIEW OF SYSTEMS: Respiratory: No cough, no dyspnea. Cardiovascular: No chest pain, no palpitations. Gastrointestinal: No vomiting, no abdominal pain. Musculoskeletal: No back pain. Allergies: Coded Allergies: Sulfa (Sulfonamide Antibiotics) (Verified Allergy, Unknown, RASH, 03/25/19) oxycodone (Verified Adverse Reaction, Intermediate, NAUSEA/VOMITING, 03/25/19) propofol (Verified Adverse Reaction, Intermediate, PARANOIA, AGITATED, 03/25/19) Uncoded Allergies: HAYFEVER (Allergy, Intermediate, SINUS CONGESTION, 02/08/17) Home Meds Active Scripts Doxycycline Hyclate (DOXYCYCLINE HYCLATE) 100 Mg Tablet, 100 MG PO BID, #12 TAB Prov:NADIRA SANCHEZ 03/25/19 Spironolactone (ALDACTONE) 25 Mg Tablet, 1 TAB PO QDAY for 30 Days, #60 TAB 0 Refills Prov:OLMAN CARVER APRNP-C 02/28/19 Furosemide (FUROSEMIDE) 40 Mg Tablet, 1 TAB PO QDAY, #60 TAB 0 Refills Prov:OLMAN CARVER APRNP-C 02/28/19 Hydrocodone Bit/Acetaminophen (HYDROCODON-ACETAMINOPHEN 5-325) 1 Each Tablet, 1 TAB PO TID PRN for pain, #90 TAB 0 Refills Prov:OLMAN CARVER APRN-C 02/01/19 Albuterol Sulfate (VENTOLIN HFA) 18 Gm Inh, 2 PUFF IH Q4H PRN for WHEEZING, #1 INHALER 0 Refills Prov:OLMAN CARVER APRN-C 01/26/19 Duloxetine HCl (Duloxetine HCl) 60 Mg Capsule.dr, 1 CAP PO DAILY, #90 TAB 0 Refills Prov:OLMAN CARVER JASMIN WHALE FISHERMAN-C 12/12/18 Ropinirole Hcl (REQUIP) 2 Mg Tablet, 1 TAB PO BID, #180 TAB 1 Refill Prov:OLMAN CARVER JASMIN WHALE FISHERMAN-C 09/12/18 Reported Medications Methotrexate Sodium (METHOTREXATE) 2.5 Mg Tablet, 25 MG PO QWEEK 12/19/18 Ondansetron 4 Mg Odt (ONDANSETRON 4 MG ODT) 4 Mg Tab.rapdis, 4 MG PO ONCE, TAB 12/19/18 Folic Acid (FOLIC ACID) 1 Mg Tablet, 1 TAB PO QDAY, TAB 12/19/18 Leucovorin Calcium (LEUCOVORIN CALCIUM) 5 Mg Tablet, 5 MG PO QWK 02/07/18 Biotin (BIOTIN) 1 Mg Tablet, 1 MG PO DAILY 08/23/17 Cetirizine Hcl (ZYRTEC) 10 Mg Capsule, 10 MG PO QDAY PRN for CONGESTION, CAPSULE 02/08/17 Cholecalciferol (Vitamin D3) (VITAMIN D-3) 2,000 Unit Capsule, 4000 UNIT PO QDAY, #100 CAPSULE 12/09/16 Discontinued Scripts Cephalexin 500 Mg Tab (KEFLEX 500 MG TAB) 500 Mg Tablet, 500 MG PO Q6H for infection, #28 TAB Prov:SCARLET LU DO 02/08/19 Past Medical/Surgical History Patient has a past medical history of restless leg syndrome, migraines, A. fib, bronchitis, asthma, pneumonia, IBS, reflux, fibromyalgia, rheumatoid arthritis, back pain, alcohol use, depression. Patient has a surgical history of breast reduction surgery, lumpectomy, bilateral eye surgery, tonsillectomy, back surgery, meniscus repair, hysterectomy, cardiac ablation. Reviewed Nurses Notes: Yes Hx Smoking: No Smoking Status: Never Smoker Exposure to Second Hand Smoke?: No (WAS EXPOSED IN THE PAST. NONE FOR 20 YEARS) Hx Substance Use Disorder: No Hx Alcohol Use: Yes Constitutional Vital Sign - Last 24 Hours 03/25/19 17:59 Temp 98.3 Pulse 87 Resp 14 B/P (MAP) 130/101 Pulse Ox 95 Physical Exam General Appearance: The patient is alert, has no immediate need for airway protection and no current signs of toxicity. Respiratory: Chest is non tender, lungs are clear to auscultation. Cardiac: regular rate and rhythm Gastrointestinal: Abdomen is soft and non tender, no masses, bowel sounds normal. Musculoskeletal: Neck: Neck is supple and non tender. Extremities have full range of motion and are non tender. Skin: No rashes or lesions. Patient does have redness, swelling to the lateral aspect of the left great toe. Tender to touch. DIFFERENTIAL DIAGNOSIS: After history and physical exam differential diagnosis was considered for ingrown toenail. Medical Decision Making ED Course/Re-evaluation ED Course Patient is admitted to examined, history and physical were obtained. Differential diagnoses were considered. On examination lungs are clear, heart is regular, right great toe does have swelling, tenderness. It appears that the toenail is ingrown. The toe was anesthetized using 1% lidocaine. The patient states she was adequately anesthetized the toenail was split down the center. With gentle traction the toenail was removed bilaterally. Patient tolerated procedure well. She was then dressed with bacitracin, Telfa pad, Kerlix and Coban. Patient is follow-up with her primary care provider the next week. We will go ahead and start her on antibiotics. She was started on doxycycline to take care of the infection. She is return to the emergency room if condition worsens. She is to take Tylenol or ibuprofen as if her pain. Patient verbalized understanding and agreement with plan. Decision to Disposition Date: Mar 25, 2019 Decision to Disposition Time: 18:53 Depart Departure Latest Vital Signs Vital Signs Date Time Temp Pulse Resp B/P (MAP) Pulse Ox O2 Delivery O2 Flow Rate FiO2 03/25/19 17:59 98.3 87 14 130/101 95 Impression: Primary Impression: Ingrown nail of great toe of right foot Condition: Improved Disposition: HOME OR SELF-CARE Referrals: OLMAN CARVER APRNP-C (PCP) New Scripts Doxycycline Hyclate (DOXYCYCLINE HYCLATE) 100 Mg Tablet 100 MG PO BID, #12 TAB Prov: NADIRA SANCHEZ 03/25/19 Patient Instructions: Ingrown Nail (ED) Additional Instructions: Limit activity by pain. Take Tylenol or Ibuprofen as needed for pain. Soak your foot daily and pull the tissue to the side. Return to the ER if condition worsens. Follow up with your primary care provider in the next week. NADIRA SANCHEZ Mar 25, 2019 18:00
[2019-03-25] MEDS ORDERED: IBUPROFEN 600 MG TAB PO ONE (18:40)
[2019-03-25] MEDS ORDERED: DOXYCYCLINE HYCL 100 MG TAB TH PO ONE (18:40)
[2019-03-25] MEDS ORDERED: DOXY-179 PO (18:53)
[2019-04-02] MEDS ORDERED: HYDR-385 PO (15:21)
[2019-04-03] MEDS ORDERED: DULO60CA7 PO (11:50)
== END 2019-03-25 19:14 | disposition home or self-care (01) ==
LOC: ER 18:00
DX: L60.0 Ingrowing nail (principal)
CPT/HCPCS: 11730; 99283; A9270

== ENCOUNTER → 2019-04-04 | Outpatient (CLI) | payer MEDICARE, MEDICAID ==
[2017-02-26 10:24] VITALS: BMI 41.3
[~2019-04-04] MED LIST changes: +DOXY-179 PO; +ROPI2TAB28 PO
[2019-04-04 13:30] LABS: PLATELET COUNT, AUTOMATED 324 K/uL (150-450)
== END ==
LOC: LAB 13:12
PROVIDERS: ATTEND Nurse Practitioner Family
DX: Z79.899 Other long term (current) drug therapy (principal); R03.0 Elevated blood-pressure reading, without diagnosis of hypertension; M06.9 Rheumatoid arthritis, unspecified
CPT/HCPCS: 36415; 82040; 82247; 82310; 82374; 82435; 82465; 82565; 82947; 83036; 83718; 84075; 84132; 84155; 84295; 84443; 84450; 84460; 84478; 84520; 85025

== ENCOUNTER 2019-04-19 14:37 | Emergency (ER) | payer MEDICARE, MEDICAID ==
[2017-02-26 10:24] VITALS: Wt 124.3 kg
--- NOTE | 2019-04-19 14:51 | ER Report ---
History and Physical Time Seen By MD: 14:42 HPI/ROS CHIEF COMPLAINT: shortness of breath and tightness in chest HISTORY OF PRESENT ILLNESS: 58-year-old female with medical history significant for asthma, presents with shortness of breath and chest tightness for one week. She reports she went to visit her aunt in [place] where she always has problems with her asthma due to dust and cat hair. She uses her albuterol inhaler 1 time per week. Symptoms are same throughout the day, they do not increase at night. She admits to intermittent dry cough, minimal wheezing. She mentions her mother recently had pneumonia, no other sick contacts. Denies chest pain, no fevers or chills, no rashes. She also has experienced left foot pain for the last week, since she started using new orthotic inserts. REVIEW OF SYSTEMS: Constitutional: No fever, no chills. Eyes: No discharge. ENT: No sore throat. Cardiovascular: No chest pain, no palpitations. Respiratory: As above Gastrointestinal: No abdominal pain, no vomiting. Genitourinary: No hematuria. Musculoskeletal: No back pain. Skin: No rashes. Neurological: No headache. Allergies: Coded Allergies: Sulfa (Sulfonamide Antibiotics) (Verified Allergy, Unknown, RASH, 04/19/19) oxycodone (Verified Adverse Reaction, Intermediate, NAUSEA/VOMITING, 04/19/19) propofol (Verified Adverse Reaction, Intermediate, PARANOIA, AGITATED, 04/19/19) Uncoded Allergies: HAYFEVER (Allergy, Intermediate, SINUS CONGESTION, 02/08/17) Home Meds Active Scripts Ipratropium/Albuterol Sulfate (IPRAT-ALBUT 0.5-3(2.5) MG/3 ML) 3 Ml Ampul.neb, 3 ML IH Q4-6H, #10 INHALATION 0 Refills Prov:CAROLE ALEXP-BC 04/19/19 Ropinirole Hcl (ROPINIROLE HCL) 2 Mg Tablet, 1 TAB PO BID, #180 TAB 1 Refill Prov:OLMAN CARVER APRNP-C 04/05/19 Duloxetine HCl (Duloxetine HCl) 60 Mg Capsule.dr, 1 CAP PO DAILY, #90 TAB 0 Refills Prov:OLMAN CARVER APRN LPN [facility]-C 04/03/19 Hydrocodone Bit/Acetaminophen (HYDROCODON-ACETAMINOPHEN 5-325) 1 Each Tablet, 1 TAB PO TID PRN for pain, #90 TAB 0 Refills Prov:OLMAN CARVER APRNP-C 04/02/19 Spironolactone (ALDACTONE) 25 Mg Tablet, 1 TAB PO QDAY for 30 Days, #60 TAB 0 Refills Prov:OLMAN CARVER APRNP-C 02/28/19 Furosemide (FUROSEMIDE) 40 Mg Tablet, 1 TAB PO QDAY, #60 TAB 0 Refills Prov:OLMAN CARVER APRNP-C 02/28/19 Albuterol Sulfate (VENTOLIN HFA) 18 Gm Inh, 2 PUFF IH Q4H PRN for WHEEZING, #1 INHALER 0 Refills Prov:OLMAN CARVER APRNP-C 01/26/19 Reported Medications Methotrexate Sodium (METHOTREXATE) 2.5 Mg Tablet, 25 MG PO QWEEK 12/19/18 Ondansetron 4 Mg Odt (ONDANSETRON 4 MG ODT) 4 Mg Tab.rapdis, 4 MG PO ONCE, TAB 12/19/18 Folic Acid (FOLIC ACID) 1 Mg Tablet, 1 TAB PO QDAY, TAB 12/19/18 Leucovorin Calcium (LEUCOVORIN CALCIUM) 5 Mg Tablet, 5 MG PO QWK 02/07/18 Biotin (BIOTIN) 1 Mg Tablet, 1 MG PO DAILY 08/23/17 Cetirizine Hcl (ZYRTEC) 10 Mg Capsule, 10 MG PO QDAY PRN for CONGESTION, CAPSULE 02/08/17 Cholecalciferol (Vitamin D3) (VITAMIN D-3) 2,000 Unit Capsule, 4000 UNIT PO QDAY, #100 CAPSULE 12/09/16 Past Medical/Surgical History The patient has a past medical and surgical history of restless leg syndrome, remote history of atrial fibrillation with ablation, wheezing, bronchitis, asthma, pneumonia, IBS, colonoscopy, GERD, breast augmentation, menopause, fibromyalgia, rheumatoid arthritis, osteoarthritis, left ankle fracture, wrist fracture, wears glasses, chronic back pain, meniscus repair, back surgery, eye surgery, lumpectomy. Reviewed Nurses Notes: Yes Hx Smoking: No Smoking Status: Never Smoker Exposure to Second Hand Smoke?: No (WAS EXPOSED IN THE PAST. NONE FOR 20 YEARS) Hx Substance Use Disorder: No Hx Alcohol Use: Yes Constitutional Vital Sign - Last 24 Hours 04/19/19 04/19/19 04/19/19 04/19/19 14:45 14:46 14:49 15:00 Temp 98.7 Pulse 85 77 Resp 31 18 B/P (MAP) 131/77 (95) 131/77 145/92 (109) Pulse Ox 93 O2 Delivery Room Air 04/19/19 04/19/19 04/19/19 04/19/19 15:15 15:30 15:37 15:37 Pulse 75 72 Resp 27 14 B/P (MAP) 136/98 (111) Pulse Ox 93 93 O2 Delivery Room Air 04/19/19 04/19/19 04/19/19 04/19/19 15:45 16:15 16:30 17:00 Pulse 76 78 Resp 27 22 B/P (MAP) 122/97 (105) 120/113 (115) Pulse Ox 100 95 04/19/19 17:30 Resp 16 B/P (MAP) 127/92 (104) Pulse Ox 82 Physical Exam General Appearance: The patient is alert, has no immediate need for airway protection and no signs of toxicity. Eyes: Pupils equal and round no pallor or injection. ENT, Mouth: Mucous membranes are moist. Respiratory: Patient is speaking in complete sentences. There are no retractions, lungs are clear to auscultation without wheeze or rales. Cardiovascular: Regular rate and rhythm. Significant chronic edema of bilateral lower extremities Gastrointestinal: Abdomen is soft and non tender, no masses, bowel sounds normal. Neurological: Patient is alert and orientated, moving all extremities, following all commands. No focal neurodeficits per Skin: Warm and dry, no rashes. Musculoskeletal: Neck is supple non tender. Tenderness to left lateral foot with palpation, mild swelling, no crepitus or d eformity. DIFFERENTIAL DIAGNOSIS: After history and physical exam differential diagnosis was considered for asthma exacerbation, bronchitis, pneumonia, pulmonary embolism, myocardial infarction. Medical Decision Making EKG/Imaging EKG Interpretation 12 lead EKG: Time of EKG 1449. Rhythm: Normal sinus rhythm, ventricular rate 74 bpm. [place]: normal QRS: Prolonged QT. ST segments: No ST depression or elevation identified. No significant changes from the 01/24/2019 EKG. Imaging PATIENT NAME: Shania Padilla : 1960 MR: [id number] V: [id number] EXAM DATE: [id number] ORDERING PHYSICIAN: CAROLE ALEX TECHNOLOGIST: Location: [facility] [place] Patient: Shania Padilla : 1960 Visit/Account:[id number] Date of Sevice: 04/19/2019 2 VIEWS CHEST INDICATION: Cough and shortness of breath. COMPARISON: Chest radiograph 09/11/2018 FINDINGS: Heart size within normal limits. Pulmonary arteries appear unremarkable. There is no focal infiltrate or lobar consolidation. There is no pneumothorax or pleural effusion. No acute osseous abnormality. IMPRESSION: 1. No acute cardiopulmonary process. Report Dictated By: Manuel Modi MD at 04/19/2019 4:30 PM Report E-Signed By: Manuel Modi MD at 04/19/2019 4:33 PM WSN:[facility] PATIENT NAME: Shania Padilla : 1960 MR: [id number] V: [id number] EXAM DATE: [id number] ORDERING PHYSICIAN: CAROLE ALEX TECHNOLOGIST: Location: [facility] [place] Patient: Shania Padilla : 1960 Visit/Account:[id number] Date of Sevice: 04/19/2019 FOOT 3 VIEW LEFT Indication: Swelling and pain Comparison: Left foot radiograph 07/22/2018 Findings: 3 views of the left foot were obtained. No evidence of fracture, dislocation, or acute osseous abnormality of the left foot. There is no focal soft tissue abnormality. No evidence of radiopaque foreign body. Moderate plantar calcaneal spur IMPRESSION: 1.No acute osseous abnormality of the left foot Report Dictated By: Manuel Modi MD at 04/19/2019 4:33 PM Report E-Signed By: Manuel Modi MD at 04/19/2019 4:36 PM WSN:[facility] ED Course/Re-evaluation ED Course The patient was admitted to room. History and physical obtained. Differential diagnoses were considered. Patient was given DuoNeb treatment, two-view chest x- ray negative for any acute cardiopulmonary process. X-ray of the left foot was negative for any acute osseous abnormality's. I did review the results with the patient. She was given a prescription for DuoNeb was for her home nebulizer, she was also encouraged to follow-up with [facility] for her foot pain and follow-up with her primary care provider within one week for reevaluation if no improvement. Patient expressed understanding and was discharged home. Patient also states that she is feeling much better after the breathing treatment. 04/19/2019 5:06:45 pm Patient reports improvement with breathing after duoneb treatment, with only mild residual tightness. She has an albuterol nebulizer at home, but she states she would like a prescription for duoneb. Informed patient that her chest x-ray did not reveal cardiac or respiratory changes. Patient also notified that the left foot x-ray did not show evidence of fracture. Decision to Disposition Date: Apr 19, 2019 Decision to Disposition Time: 17:32 Depart Departure Latest Vital Signs Vital Signs Date Time Temp Pulse Resp B/P (MAP) Pulse Ox O2 Delivery O2 Flow Rate FiO2 04/19/19 17:30 16 127/92 (104) 82 04/19/19 16:15 78 04/19/19 15:37 Room Air 04/19/19 14:49 98.7 Impression: Primary Impression: Cough Additional Impressions: Shortness of breath History of asthma Left foot pain Condition: Improved Disposition: HOME OR SELF-CARE Referrals: OLMAN CARVER APRNP-C (PCP) 1 Week New Scripts Ipratropium/Albuterol Sulfate (IPRAT-ALBUT 0.5-3(2.5) MG/3 ML) 3 Ml Ampul.neb 3 ML IH Q4-6H, #10 INHALATION 0 Refills Prov: CAROLE ALEX-JO ANN 04/19/19 Patient Instructions: Acute Cough (ED) Additional Instructions: DuoNeb treatment was prescribed, please use as directed. Follow-up with your primary care provider if symptoms do not improve. For your left foot pain, you can use ibuprofen or Tylenol as needed. May also try asper cream with lidocaine to the affected area. Use Nakul wrap on left ankle/foot as needed for comfort. Return to [facility] if the pain persists to reevaluate orthotic inserts. Problem Qualifiers CAROLE ALEXP-BC Apr 19, 2019 14:51
[2019-04-19] MEDS ORDERED: ALBUTEROL/IPRATROPIUM 3 ML NEB NEB ONE (15:20)
--- NOTE | 2019-04-19 16:41 | RADIOLOGY IMAGING REPORT ---
FACILITY: [facility] [place] PATIENT NAME: Shania Padilla : 1960 MR: [id number] V: [id number] EXAM DATE: ORDERING PHYSICIAN: CAROLE ALEX TECHNOLOGIST: Location: [facility] - [place] Patient: Shania Padilla : 1960 Visit/Account:[id number] Date of Sevice: 04/19/2019 2 VIEWS CHEST INDICATION: Cough and shortness of breath. COMPARISON: Chest radiograph 09/11/2018 FINDINGS: Heart size within normal limits. Pulmonary arteries appear unremarkable. There is no focal infiltrate or lobar consolidation. There is no pneumothorax or pleural effusion. No acute osseous abnormality. IMPRESSION: 1. No acute cardiopulmonary process. Report Dictated By: Manuel Modi MD at 04/19/2019 4:30 PM Report E-Signed By: Manuel Modi MD at 04/19/2019 4:33 PM WSN:[email or web address]
--- NOTE | 2019-04-19 16:43 | RADIOLOGY IMAGING REPORT ---
FACILITY: [facility] - [place] PATIENT NAME: Shania Padilla : 1960 MR: [id number] V: [id number] EXAM DATE: ORDERING PHYSICIAN: CAROLE ALEX TECHNOLOGIST: Location: [facility] [place] Patient: Shania Padilla : 1960 Visit/Account:[id number] Date of Sevice: 04/19/2019 FOOT 3 VIEW LEFT Indication: Swelling and pain Comparison: Left foot radiograph 07/22/2018 Findings: 3 views of the left foot were obtained. No evidence of fracture, dislocation, or acute osseous abnormality of the left foot. There is no focal soft tissue abnormality. No evidence of radiopaque foreign body. Moderate plantar calcaneal spur IMPRESSION: 1.No acute osseous abnormality of the left foot Report Dictated By: Manuel Modi MD at 04/19/2019 4:33 PM Report E-Signed By: Manuel Modi MD at 04/19/2019 4:36 PM WSN:[email or web address]
[2019-04-19] MEDS ORDERED: IPRA3AMP10 IH (17:23)
[2019-04-19 17:30] VITALS: BP 127/92
--- NOTE | 2019-04-20 07:33 | EKG ---
FACILITY: [facility] PATIENT NAME: SARAH AYALA : [id number] MR: [id number] V: [id number] EXAM DATE: ORDERING PHYSICIAN: CAROLE ALEX TECHNOLOGIST: Test Reason : SOB Blood Pressure : / mmHG Vent. Rate : 074 BPM Atrial Rate : 074 BPM P-R Int : 138 ms QRS Dur : 064 ms QT Int : 440 ms P-R-T Axes : 081 068 052 degrees QTc Int : 488 ms Sinus rhythm Prolonged QT Abnormal ECG When compared with ECG of 24-JAN-2019 15:49, No significant change was found Confirmed by TR BANEGAS ([id number]) on 04/20/2019 7:38:40 AM Referred By: Confirmed By:TR BANEGAS
== END 2019-04-19 17:47 | disposition home or self-care (01) ==
LOC: ER 14:41
DX: J45.909 Unspecified asthma, uncomplicated (principal); R05 Cough; R06.02 Shortness of breath; M25.572 Pain in left ankle and joints of left foot
CPT/HCPCS: 71046; 73630; 94640; 99284; J7620; 93005

== ENCOUNTER → 2019-04-25 | Outpatient (CLI) | payer MEDICARE, MEDICAID ==
[2017-02-26 10:24] VITALS: BMI 41.3
[~2019-04-25] MED LIST changes: +MONT10TA4 PO
--- NOTE | 2019-04-25 14:03 | RADIOLOGY IMAGING REPORT ---
FACILITY: [facility] PATIENT NAME: Shania Padilla : 1960 MR: [id number] V: [id number] EXAM DATE: ORDERING PHYSICIAN: OLMAN CARVER TECHNOLOGIST: Location: [facility] Patient: Shania Padilla : 1960 Visit/Account:[id number] Date of Sevice: 04/25/2019 Exam type: US SOFT TISSUE NON-SPECIFIC History: axillary lymphadenopathy Comparison: Right breast ultrasound June 30, 2018. Findings: Many of the previously noted right axillary lymph nodes appear relatively unchanged. There is howeve r a new right axillary lymph node not previously imaged with irregular lobular margins and ectatic an d eccentric hilum. This lymph node measures 1.5 x 1.5 x 1.1 cm. Due to the irregularity ultrasound- guided core biopsy is recommended IMPRESSION: 1. Ultrasound-guided core biopsy of the previously on imaged irregular right axillary lymph node rec ommended as described above Report Dictated By: Jessica Rivero MD at 04/25/2019 1:21 PM Report E-Signed By: Jessica Rivero MD at 04/25/2019 1:54 PM WSN:[email or web address]
--- NOTE | 2019-04-27 09:31 | RADIOLOGY IMAGING REPORT ---
[place] [facility] [place] NAME: SARAH AYALA : [id number] MR: [id number] V: [id number] EXAM DATE: [id number] ORDERING PHYSICIAN: OLMAN CARVER TECHNOLOGIST: Alina Cunha PROCEDURE:BILATERAL DIAGNOSTIC DIGITAL MAMMOGRAM WITH CAD ASSISTED INTERPRETATION & 3D TOMOSYNTHESIS REASON FOR STUDY: 6 month follow up FAMILY HISTORY OF BREAST CANCER: None BREAST PROCEDURES/TREATMENTS: Benign surgical biopsy of the Right breast & bilateral breast reductions in COMPARISON STUDIES: 06/30/18, 09/22/17, 09/15/17, 11/25/15 MAMMOGRAM VIEWS OBTAINED: Bilateral 2D & 3D full field CC & MLO projections BREAST DENSITY: The breasts are almost entirely fatty. MAMMOGRAM FINDINGS: Most of the parenchymal pattern has remained stable allowing for difference in mammographic technique & patient positioning. The breasts are smaller than the 2016 mammogram due to the bilateral breast reduction. Prominent lymph nodes in the Right axilla are again seen. Comparison was made to the soft tissue Ultrasound in the Right axilla which is dictated in a separate report. Numerous fatty replaced lymph nodes appear similar to the prior Right breast Ultrasound of 06/30/18. There was, however, 1 lymph node that appeared enlarged with an eccentric hilum & irregular margins for which Ultrasound guided core biopsy is recommended. DIAGNOSTIC CATEGORY 4--SUSPICIOUS FOR MALIGNANCY. RECOMMENDATIONS: ULTRASOUND-GUIDED CORE BIOPSY: RIGHT BREAST. IMPRESSION: BIRADS 4: Suspicious for malignancy Ultrasound guided core biopsy of the irregular prominent lymph node in the Right axilla recommended as described in a separate report. Dictated by: Jessica Rivero M.D. on 04/25/2019 at 17:31 Transcribed by: RUPERT on 04/26/2019 at 14:40 Approved by: Jessica Rivero M.D. on 04/27/2019 at 9:26 [facility]
== END ==
LOC: MAMO 01:31
PROVIDERS: ATTEND Nurse Practitioner Family
DX: R59.0 Localized enlarged lymph nodes (principal); R92.8 Other abnormal and inconclusive findings on diagnostic imaging of breast
CPT/HCPCS: 76999; 77062; 77066

== ENCOUNTER 2019-05-02 17:33 | Emergency (ER) | payer MEDICARE, MEDICAID ==
[2017-02-26 10:24] VITALS: Wt 127.5 kg
[2019-05-02 17:38] VITALS: BP 149/81
--- NOTE | 2019-05-02 17:44 | ER Report ---
History and Physical Time Seen By MD: 17:37 Hx. of Stated Complaint: COUGH AND DIFFICULTY WITH DEEP BREATHING FOR 3 WEEKS HPI/ROS CHIEF COMPLAINT: Cough and sinus pressure HISTORY OF PRESENT ILLNESS: This is a 58-year-old female who presents to the emergency room for cough and sinus pressure. Patient states that she's had an ongoing cough for the better part of 3 weeks. She was seen in evaluated in the emergency department, she was given DuoNeb was, she did have a negative chest x- ray, did follow up with her primary care provider, was given a Medrol Dosepak for her cough, she states that the cough is about the same, with the exception of green mucus. She states that now she has sinus pain and pressure. She denies shortness of breath, she does have chest pain however this is associated with her coughing episodes only. She denies shortness of breath. No nausea or vomiting. No other complaints. REVIEW OF SYSTEMS: Respiratory: As above. ENT: As above. Cardiovascular: No chest pain, no palpitations. Gastrointestinal: No vomiting, no abdominal pain. Musculoskeletal: No back pain. Allergies: Coded Allergies: Sulfa (Sulfonamide Antibiotics) (Verified Allergy, Unknown, RASH, 04/19/19) oxycodone (Verified Adverse Reaction, Intermediate, NAUSEA/VOMITING, 04/19/19) propofol (Verified Adverse Reaction, Intermediate, PARANOIA, AGITATED, 04/19/19) Uncoded Allergies: HAYFEVER (Allergy, Intermediate, SINUS CONGESTION, 02/08/17) Home Meds Active Scripts Fluconazole (DIFLUCAN) 150 Mg Tablet, 150 MG PO QDAY, #2 TAB Take one tab today and may repeat in 48 hours if there is no improvement. Prov:CAROLE ALEX SCHEDULING REPRESENTATIVE-BC 05/02/19 Amoxicillin/Pot Clav 875-125 Mg Tab (AUGMENTIN 875-125 TABLET) 1 Each Tablet, 1 TAB PO Q12H for 7 Days, #14 TAB 0 Refills Prov:CAROLE ALEX SCHEDULING REPRESENTATIVE-BC 05/02/19 Spironolactone (ALDACTONE) 25 Mg Tablet, 1 TAB PO QDAY for 30 Days, #60 TAB 3 Refills Prov:OLMAN CARVER APRN SCHEDULING REPRESENTATIVE-C 04/30/19 Furosemide (FUROSEMIDE) 40 Mg Tablet, 1 TAB PO QDAY, #60 TAB 3 Refills Prov:OLMAN CARVER APRNP-C 04/30/19 Montelukast Sodium (MONTELUKAST SODIUM) 10 Mg Tablet, 1 TAB PO QHS, #90 TAB 1 Refill Prov:OLMAN CARVER APRN SCHEDULING REPRESENTATIVE-C 04/27/19 Methylprednisolone (METHYLPREDNISOLONE) 4 Mg Tab.ds.pk, 4 MG PO DIRECTED, #1 DOSE-PACK 0 Refills Prov:OLMAN CARVER APRN-C 04/27/19 Ipratropium/Albuterol Sulfate (IPRAT-ALBUT 0.5-3(2.5) MG/3 ML) 3 Ml Ampul.neb, 3 ML IH Q4-6H, #1 BOX 0 Refills Prov:OLMAN CARVER APRN-C 04/27/19 Ropinirole Hcl (ROPINIROLE HCL) 2 Mg Tablet, 1 TAB PO BID, #180 TAB 1 Refill Prov:OLMAN CARVER APRNP-C 04/05/19 Duloxetine HCl (Duloxetine HCl) 60 Mg Capsule.dr, 1 CAP PO DAILY, #90 TAB 0 Refills Prov:OLMAN CARVER APRN SCHEDULING REPRESENTATIVE-C 04/03/19 Hydrocodone Bit/Acetaminophen (HYDROCODON-ACETAMINOPHEN 5-325) 1 Each Tablet, 1 TAB PO TID PRN for pain, #90 TAB 0 Refills Prov:OLMAN CARVER APRN SCHEDULING REPRESENTATIVE-C 04/02/19 Albuterol Sulfate (VENTOLIN HFA) 18 Gm Inh, 2 PUFF IH Q4H PRN for WHEEZING, #1 INHALER 0 Refills Prov:OLMAN CARVER APRN SCHEDULING REPRESENTATIVE-C 01/26/19 Reported Medications Methotrexate Sodium (METHOTREXATE) 2.5 Mg Tablet, 25 MG PO QWEEK 12/19/18 Ondansetron 4 Mg Odt (ONDANSETRON 4 MG ODT) 4 Mg Tab.rapdis, 4 MG PO ONCE, TAB 12/19/18 Folic Acid (FOLIC ACID) 1 Mg Tablet, 1 TAB PO QDAY, TAB 12/19/18 Leucovorin Calcium (LEUCOVORIN CALCIUM) 5 Mg Tablet, 5 MG PO QWK 02/07/18 Biotin (BIOTIN) 1 Mg Tablet, 1 MG PO DAILY 08/23/17 Cetirizine Hcl (ZYRTEC) 10 Mg Capsule, 10 MG PO QDAY PRN for CONGESTION, CAPSULE 02/08/17 Cholecalciferol (Vitamin D3) (VITAMIN D-3) 2,000 Unit Capsule, 4000 UNIT PO QDAY, #100 CAPSULE 12/09/16 Past Medical/Surgical History The patient has a past medical and surgical history of restless leg syndrome, remote history of atrial fibrillation with ablation, wheezing, bronchitis, asthma, pneumonia, IBS, colonoscopy, GERD, breast augmentation, menopause, fibromyalgia, rheumatoid arthritis, osteoarthritis, left ankle fracture, wrist fracture, wears glasses, chronic back pain, meniscus repair, back surgery, eye surgery, lumpectomy. Reviewed Nurses Notes: Yes Hx Smoking: No Smoking Status: Never Smoker Exposure to Second Hand Smoke?: No (WAS EXPOSED IN THE PAST. NONE FOR 20 YEARS) Hx Substance Use Disorder: No Hx Alcohol Use: Yes Constitutional Vital Sign - Last 24 Hours 05/02/19 17:38 Temp 98.0 Pulse 73 Resp 20 B/P (MAP) 149/81 Pulse Ox 95 O2 Delivery Room Air Physical Exam General Appearance: The patient is alert, has no immediate need for airway protection and no current signs of toxicity. Eyes: Pupils equal and round no injection. ENT: TMs are intact, landmarks noted, pearly clark, no erythema or injection. No nasal discharge. Pressure over the frontal and maxillary sinuses with increased pressure over the right maxillary sinuses and a fullness noted on exam. Respiratory: Chest is non tender, lungs are clear to auscultation. Cardiac: regular rate and rhythm. Gastrointestinal: Abdomen is soft and non tender, no masses, bowel sounds normal. Musculoskeletal: Neck: Neck is supple and non tender. Extremities have full range of motion and are non tender. Skin: No rashes or lesions. DIFFERENTIAL DIAGNOSIS: After history and physical exam differential diagnosis was considered for pneumonia, bronchitis, strep throat, seasonal allergies, sinusitis. Medical Decision Making ED Course/Re-evaluation ED Course The patient was admitted to room. A history and physical obtained. Differential diagnoses were considered. After discussion with the patient and evaluation, to determine the patient likely has acute sinusitis, she was treated with antibiotics, she will follow up with her primary care provider as scheduled. Patient had no other questions or concerns at this time and discharged home. She also states she has enough DuoNeb's as prescribed by her PCP. Decision to Disposition Date: May 02, 2019 Decision to Disposition Time: 18:08 Depart Departure Latest Vital Signs Vital Signs Date Time Temp Pulse Resp B/P (MAP) Pulse Ox O2 Delivery O2 Flow Rate FiO2 05/02/19 17:38 98.0 73 20 149/81 95 Room Air Impression: Primary Impression: Sinusitis Condition: Improved Disposition: HOME OR SELF-CARE Referrals: OLMAN CARVER APRN-C (PCP) 1 Week New Scripts Fluconazole (DIFLUCAN) 150 Mg Tablet 150 MG PO QDAY, #2 TAB Take one tab today and may repeat in 48 hours if there is no improvement. Prov: CAROLE ALEXP- 05/02/19 Amoxicillin/Pot Clav 875-125 Mg Tab (AUGMENTIN 875-125 TABLET) 1 Each Tablet 1 TAB PO Q12H for 7 Days, #14 TAB 0 Refills Prov: CAROLE ALEXP- 05/02/19 Patient Instructions: Sinusitis (ED) Additional Instructions: Take the antibiotics as prescribed. Take your medications as prescribed. Use the duonebs as needed. Drink plenty of fluids. Continue with the sinus rinse. Follow up with your PCP as scheduled. Return to the ED for any other concerns or worsening symptoms. Problem Qualifiers Primary Impression: Sinusitis Sinusitis location: pansinusitis Chronicity: acute Recurrence: not specified as recurrent Qualified Codes: J01.40 - Acute pansinusitis, unspecified CAROLE ALEXP- May 02, 2019 17:44
[2019-05-02] MEDS ORDERED: FLUC150T40 PO (18:14)
[2019-05-02] MEDS ORDERED: AMOX-559 PO (18:14)
[2019-05-03] MEDS ORDERED: IPRA3AMP10 IH (13:59)
== END 2019-05-02 18:33 | disposition home or self-care (01) ==
LOC: ER 18:00
DX: J01.40 Acute pansinusitis, unspecified (principal)
CPT/HCPCS: 99281

== ENCOUNTER → 2019-05-03 | Outpatient (CLI) | payer MEDICARE, MEDICAID ==
[2017-02-26 10:24] VITALS: BMI 41.3
[2019-05-03 17:54] LABS: INR 1.11
== END ==
LOC: LAB 16:43
PROVIDERS: ATTEND Nurse Practitioner Family
DX: Z01.812 Encounter for preprocedural laboratory examination (principal)
CPT/HCPCS: 36415; 85610; 85730

== ENCOUNTER → 2019-05-04 | Outpatient (CLI) | payer MEDICARE, MEDICAID ==
[2017-02-26 10:24] VITALS: BMI 41.3
--- NOTE | 2019-05-04 14:41 | RADIOLOGY IMAGING REPORT ---
FACILITY: [facility] - [place] PATIENT NAME: Shania Padilla : 1960 MR: [id number] V: [id number] EXAM DATE: ORDERING PHYSICIAN: OLMAN CARVER TECHNOLOGIST: Location: [facility] - [place] Patient: Shania Padilla : 1960 Visit/Account:[id number] Date of Sevice: 05/04/2019 Exam type: US GUIDED RIGHT AXILLARY LYMPH NODE BIOPSY History: Abnormal mammogram and breast ultrasound Comparison: Ultrasound April 25, 2019. Findings: Informed consent was obtained. Patient's right axilla was prepped and draped in usual sterile fashio n. Local anesthesia was accomplished with 1% lidocaine. Using direct and continuous sonographic jeancarlos dance three 16-gauge core biopsies were obtained through the irregular lymph node in the right axilla ry region. A biopsy clip was placed in the biopsy site. The samples were placed in formalin, shown to the patient and sent to laboratory for further evaluation. The procedure was a copy slight appare nt complication IMPRESSION: 1. Successful sonographically guided right axillary lymph node biopsy Report Dictated By: Jessica Rivero MD at 05/04/2019 2:31 PM Report E-Signed By: Jessica Rivero MD at 05/04/2019 2:33 PM WSN:[email or web address]
== END ==
LOC: US 00:49
PROVIDERS: ATTEND Nurse Practitioner Family
DX: R92.8 Other abnormal and inconclusive findings on diagnostic imaging of breast (principal)
CPT/HCPCS: 10005; 88305; 88342